=== PATIENT | male | born 1940 | race Caucasian/White ===

== ENCOUNTER 2017-06-17 12:26 | Outpatient (CLI) | payer MEDICARE, OTHER ==
--- NOTE | 2017-06-17 15:42 | CT ---
CT CHEST WITHOUT CONTRAST 06/17/17 HISTORY: Pleural effusion. COMPARISON: Chest two view from 2015. FINDINGS: Large right pleural effusion containing approximately 60% of the right hemithorax space. Mild compre ssive atelectasis in the right middle lobe and severe compressive atelectasis in the right lower lob e. Left lung is clear. Mild emphysematous changes, central lobular predominance. Moderate calcification of the aorta. There appears to be an occlusion device within the left atrium although the clinical correlation with history of prior procedure is recommended. Dense vascular seth cifications coronary arteries. Numerous right paratracheal and pretracheal lymph nodes throughout the mediastinum. In the upper abdomen, there appears to be ascites and a nodular appearance of the liver. There is di astasis of the sternum and manubrium with fracture of the sternal wires. No compression fracture of the thoracic spine. IMPRESSION: 1. Large right pleural effusion with compressive atelectasis filling approximately 60% of the r ight pleural space. 2. Cardiomegaly. 3. Likely reactive mediastinal lymph nodes. 4. Likely an occlusion device in the left atrium with dense vascular calcifications of the srinivasa nary arteries. Recommend correlation with prior history. 5. Diastasis of the sternum and manubrium in midline fashion from prior sternotomy and fracture of the sternal wires. 6. Incompletely evaluated ascites with hepatic cirrhosis. Patient should be considered to be pu t in an HCCC screening program with ultrasound. 7. Underlying mass in the right lower lobe cannot be totally excluded given the large effusion. Code T POS: OFF
== END 2017-06-17 12:27 | disposition home or self-care (01) ==
LOC: CT 12:26
PROVIDERS: ATTEND Family Medicine
DX: J90 Pleural effusion, not elsewhere classified (principal); I51.7 Cardiomegaly
CPT/HCPCS: 71250; 82728; 85025

== ENCOUNTER 2017-06-20 22:57 | Inpatient (IN) | payer MEDICARE, OTHER ==
[2017-06-20 23:28] LABS: #Eosinphils 0.5 thou/uL (0.0-0.7); #Lymphocytes 0.8 thou/uL (1.20-3.40); #Monocytes 0.5 thou/uL (0.11-0.59); #Neutrophils 4.8 thou/uL (1.40-6.50); %Basophils 0.6 % (0.0-1.0); %Lymphocytes 11.8 % (21.0-51.0); %Monocytes 7.7 % (0.0-10.0); Hematocrit 39.1 % (42.0-52.0); Mean Platelet Volume 9.1 fL (7.4-10.4); Red Blood Cell (RBC) Count 4.02 mill/uL (4.70-6.10); White Blood Cell (WBC) Count 6.6 thou/uL (4.8-10.8)
--- NOTE | 2017-06-20 23:41 | RAD ---
PORTABLE CHEST ONE VIEW 06/20/17 at 11:33 p.m. HISTORY: Dyspnea. FINDINGS: Comparison is made with the exam of 09/05/15. There are changes of median sternotomy. The heart size is enlarged. There is a moderate sized right pleural effusion. The left lung is clear. No florencia pulmonary edema is seen. IMPRESSION: Right sided pleural effusion. POS: [facility]
[2017-06-20 23:50] LABS: ALT (SGPT) 11 U/L (8-55); AST (SGOT) 26 U/L (5-34); Alkaline Phosphatase 144 U/L (40-150); Anion Gap 18 mmol/L (10-20); BUN (Urea Nitrogen) 81 mg/dL (8.4-25.7); Bilirubin, Total 1.2 mg/dL (0.2-1.2); CK (CPK) 83 U/L (30-200); Calc. Creatinine Clearance 0 mL/min (70-130); Calcium 9.7 mg/dL (7.8-10.44); Carbon Dioxide 26 mmol/L (23-31); Chloride 101 mmol/L (98-107); Estimated GFR-MDRD 16; Globulin 3.5 g/dL (2.4-3.5); Protein, Total 7.5 g/dL (5.8-8.1)
[2017-06-20 23:59] LABS: Troponin I 0.076 ng/mL (< 0.028)
[2017-06-21] MEDS ORDERED: methylPREDNISolone Sod Succ/PF 125 MG/2 ML VIAL ONE (03:46)
[2017-06-21] MEDS ORDERED: Bumetanide 1 MG/4 ML VIAL IVP SCH (04:00)
[2017-06-21 05:27] VITALS: BMI 28.7
[2017-06-21] MEDS ORDERED: Ondansetron ODT 4 MG TAB SL PRN (05:33)
[2017-06-21] MEDS ORDERED: Acetaminophen 325 MG TAB PO PRN (05:33)
[2017-06-21] MEDS ORDERED: Ondansetron HCl/PF 4 MG/2 ML Vial IVP PRN (05:33)
--- NOTE | 2017-06-21 06:07 | PDOC.EVN ---
Event Note - Event Note Event Note: [id number] 1. Acute on chronic sys CHF 2. MARIZA 3. CKD stage 4 4. H/O HTN Plan: see orders
[2017-06-21] MEDS ORDERED: Colchicine 0.6 MG TAB PO PRN (06:10)
[2017-06-21] MEDS ORDERED: Metolazone 5 MG TAB PO PRN (06:10)
[2017-06-21] MEDS: Arformoterol 15 MCG/2 ML NEB NEB SCH ×2 (07:28→18:48)
[2017-06-21] MEDS: Budesonide 0.25 MG/2 ML NEB NEB SCH ×2 (07:30→18:49)
[2017-06-21 08:23] LABS: Troponin I 0.071 ng/mL (< 0.028)
--- NOTE | 2017-06-21 08:24 | HP ---
DATE OF ADMISSION: 06/21/2017 CHIEF COMPLAINT: Lower abdominal wall swelling and bilateral lower extremity swelling. HISTORY OF PRESENT ILLNESS: The patient is 77 years old male with past medical history of CKD, stage 4; CHF; hypertension; COPD; diabetes mellitus, type 2; now came to the ER because of the bilateral lower extremity swelling and lower abdominal wall swelling. The patient was having dyspnea for the past few days, but dyspnea got worse today. Patient also complains of bilateral lower extremity swelling and abdominal wall swelling for the past several weeks, but got worse this evening. Denies any chest pain and denies any palpitations. Complains of some dry cough. Denies any fever, denies any chills, denies nausea , denies any vomiting, denies any diarrhea, denies any bloody stools, and denies black stools. The patient swelling improved in the ER after IV Bumex was given. The patient denies any dizziness. PAST MEDICAL HISTORY: As per HPI. PAST SURGICAL HISTORY: CABG, right finger amputation. FAMILY HISTORY: Positive for heart problems. SOCIAL HISTORY: Denies smoking, denies alcohol, denies any drugs. REVIEW OF SYSTEMS: Constitutional: Denies any fever and denies any chills. Eyes: Denies vision problems. Ears: Denies any hearing loss. Neck: Denies any neck pain. Cardiovascular System: Denies any chest pain and denies any palpitations. Respiratory System: Positive for dyspnea. Cranial Nerve System : Denies syncope. Musculoskeletal: Positive for bilateral lower extremity swelling. Gastrointestinal: Positive for lower abdominal wall swelling. Psychiatric: Denies depression and denies anxiety. Integument: Denies any rash. All other review of systems is reviewed and is negative. PHYSICAL EXAMINATION: VITAL SIGNS: At the time of H and P performed, blood pressure is 113/77, temperature 97.8, heart rate 88, respiratory rate 22. GENERAL APPEARANCE: The patient appears comfortable. HEENT: Pupils equal, round, and reactive. Anterior nares patent. Nose normal. Ears normal. Teeth intact. Tongue is moist. NECK: Supple. No JVD. INTEGUMENTARY: Diffuse ecchymosis present with multiple ecchymoses seen. CARDIOVASCULAR SYSTEM: S1, S2 present, regular. Positive for systolic murmur, no rubs and no gallops. CHEST: Positive for old-healed scar present. RESPIRATORY SYSTEM: Diminished breath sounds present. Positive for rhonchi. Positive for crackles. No accessory muscle use seen. Normal effort. GASTROINTESTINAL: Abdomen is distended, soft, nontender, no guarding, no organomegaly, no masses felt. MUSCULOSKELETAL: Bilateral lower extremities, 2+ pitting edema present. PSYCHIATRIC: Mood appropriate at this time. CRANIAL NERVES SYSTEM: Awake, follows commands, strength intact, sensory intact. LABORATORY DATA: At the time of H and P performed, white count 6.6, hemoglobin 12.3, platelet count is 120. BMP showed sodium 141, potassium 3.9, chloride 101 , CO2 of 26, BUN of 81, creatinine 3.65, baseline creatinine is around 2.6. ASSESSMENT AND PLAN: The patient is 77 years old male. 1. Acute on chronic systolic congestive heart failure. Plan to start patient on IV Bumex, plan to consult Cardiology to evaluate the patient, plan to monitor the patient closely with strict I's and O's. 2. Acute kidney injury with chronic kidney disease. This might be secondary to the underlying heart failure, but need to rule out other etiology also. Plan to consult Nephrology to evaluate the patient. We will monitor creatinine closely. 3. Acute chronic obstructive pulmonary disease exacerbation. Will start patient on breathing treatments and IV steroids. We will monitor respiratory status closely. 4. History of hypertension. Monitor blood pressure. Continue home blood pressure medications. 5. History of diabetes mellitus, type 2. Monitor blood sugars. We will do insulin sliding scale. The case was discussed in detail with the patient. Patient is full code. MTDD
--- NOTE | 2017-06-21 08:42 | CON ---
DATE OF CONSULTATION: 06/21/2017 SERVICE: Renal Medicine. HISTORY OF PRESENT ILLNESS: Mr. Ny is a 77-year-old white male with chronic renal failure, admitted for complaints of abdominal swelling with shortness of breath. Initial evaluation with a c hest x-ray showed he had moderate size right pleural effusion. In addition, a CAT scan of the abdom en was done, which showed some ascites and finding of cirrhosis. Initially, he had leg edema, but t his morning, his leg edema is much improved. We are now being consulted for his acute kidney injury on top of his chronic renal failure. Please note, this patient is regularly followed [facility] and baseline creatinine is about 2.7. Currently, most recent creatinine is about 3.6-3.4. REVIEW OF SYSTEMS: Denies any chest pain. Positive for mild shortness of breath. Positive for abd ominal fullness. No nausea, no vomiting, no diarrhea, no headache, no diplopia, no syncopal episode , no productive cough, no fever or chills. No hematochezia, no melena, no hematemesis, no gross hem aturia. Appetite fair. Energy level is decreased. No visual acuity changes. PAST MEDICAL HISTORY: Includes the following, 1. The patient has history of congestive heart failure. 2. Hypertension. 3. ? of underlying COPD, status post atrial fibrillation, status post gastrointestinal bleed. 4. History of coronary artery disease. PAST SURGICAL HISTORY: Includes the followin. The patient is status post cardiac catheterization, status post CABG. 2. He also has a right middle and ring finger amputation. SOCIAL HISTORY: Patient lives in [place], [place]. He lives alone. He has 6 children. He tells me he has a daughter who lives nearby to help him. Currently, no smoking or alcohol use, no IV anjel g abuse. ALLERGIES: LIPITOR and ZOCOR. TRAUMA: None. IMMUNIZATIONS: Up to date. HOSPITALIZATIONS: Please see past medical history. PHYSICAL EXAMINATION: GENERAL: Noted to be awake, alert, supine, comfortable, not in overt distress. SKIN: Adequate turgor. HEENT: Slightly pale conjunctivae, anicteric sclerae. NECK: No neck mass, no carotid bruits, no JVD. CHEST: No deformities. LUNGS: Decreased breath sounds in right, left clear. HEART: Normal sinus rhythm. Grade 3/6 systolic murmur. No gallops or rubs. ABDOMEN: Globular, soft, nontender, no masses. Positive for ascites. EXTREMITIES: No edema. NEUROLOGIC: Awake, oriented to 3 spheres. Moving all extremities. No tremors or asterixis. VITAL SIGNS: Blood pressure ranging from 89/54-113/77, heart rate 76, respiratory rate 16, O2 sat 9 0%, temperature 97.8. LABORATORY DATA AND IMAGING: Of 06/20/2017, white count 6.6, hemoglobin 12.3. Sodium is 141, potas sium 3.9, chloride 101, carbon dioxide 26, BUN 81, creatinine 3.65, glucose 106, calcium 9.7, AST 26 , ALT 11. BNP is 981.2. Chest x-ray of 06/20/2017 showed right pleural effusion. CT scan of the chest on 06/17/2017 showed large pleural effusion, cardiomegaly, reactive mediastinal lymph nodes, ? of right lower mass, ? of cirrhosis. ASSESSMENT AND PLAN: 1. Acute kidney injury on top of his chronic renal failure - patient has been diuresed for his sury estive heart failure. [facility]. He was on Bumex at home and cur rently on metolazone. My plan is to discontinue metolazone. Continue to hold off Bumex, salt poor albumin 25 grams IV q.6 hours will be done. He most likely has superimposed prerenal azotemia. 2. Chronic renal failure. Supportive care. Baseline creatinine is about 2.7. No indication for a ny dialytic intervention. 3. Moderate sized right pleural effusion - consider thoracentesis with this patient. 4. ? of cirrhosis - GI evaluation. May need GI evaluation for possible cirrhosis or ? of underlyin g liver mass. Continue supportive care.
[2017-06-21] MEDS ORDERED: Non-Formulary Item 1 EACH (Omeprazole [Omeprazole] 40 MG) PO SCH (09:00)
[2017-06-21] MEDS: Allopurinol 300 MG TAB PO SCH (09:57)
[2017-06-21] MEDS: Calcitriol 0.25 MCG CAP PO SCH (09:58)
[2017-06-21] MEDS: Carvedilol 3.125 MG TAB PO SCH ×2 (09:59→20:22)
[2017-06-21] MEDS: Albumin 25% 25 GM/100 ML BOT IVPB SCH ×3 (10:02→20:22)
--- NOTE | 2017-06-21 11:52 | ULT ---
RENAL SONOGRAM: HISTORY: Renal failure. FINDINGS: The right kidney is 9.1 cm in length and the left is 10.1 cm. Each shows diffuse cortical thinning. No focal mass or hydronephrosis are apparent. Urinary bladder is incompletely distended. A large amount of free fluid is apparent throughout the abdomen and pelvis. Echogenic stones are noted wit hin the gallbladder lumen. IMPRESSION: 1. Diffuse renal atrophy. No evidence of urinary tract obstruction. 2. Ascites. 2. Cholelithiasis. POS: [facility]
[2017-06-21] MEDS: Benzonatate 100 MG CAP PO PRN (12:25)
[2017-06-21 12:31] LABS: Troponin I 0.054 ng/mL (< 0.028)
--- NOTE | 2017-06-21 13:58 | EKG ---
Test Reason : Blood Pressure : / mmHG Vent. Rate : 104 BPM Atrial Rate : 047 BPM P-R Int : 000 ms QRS Dur : 144 ms QT Int : 364 ms P-R-T Axes : 000 091 253 degrees QTc Int : 478 ms Atrial fibrillation with rapid ventricular response with premature ventricular or aberrantly conduct ed complexes Rightward axis Non-specific intra-ventricular conduction block Cannot rule out Septal infarct , age undetermined T wave abnormality, consider inferior ischemia T wave abnormality, consider anterolateral ischemia Low voltage QRS Abnormal ECG Confirmed by SCOTT BENNETT, HUBER Rosenberg ([id number]), proposal editor ESTHER XIONG ([id number]) on 06/21/2017 1:57:54 PM Referred By: Confirmed By:HUBER CHAVEZ MD
--- NOTE | 2017-06-21 15:08 | PDOC.EVN ---
Event Note - Event Note Event Note: pt seen and examined. Renal consult appreciated. will request GI consult for cirrhosis . has ascites and Rt pleural effusion , likely hepatogenic in origin. will order paracentesis by IR. if pleural effusion does not resolve, will request thoracentesis.
--- NOTE | 2017-06-21 18:30 | CON ---
DATE OF CONSULTATION: 06/21/2017 GI INPATIENT CONSULTATION NOTE REQUESTING PHYSICIAN: Dr. Thornton. REASON FOR CONSULTATION: Cirrhosis. HISTORY OF PRESENT ILLNESS: Jeffy Ny is a 77-year-old gentleman, seen in the GI outpatient setting by my colleague, Dr. Andrew Schaeffer. He is admitted to the hospital this morning with acute on chronic CHF as well as acute on chronic kidney injury with complaints of increasing dyspnea, lower extremity edema, abdominal distention, progressive over the past few weeks. He has a history notabl e for CHF, coronary artery bypass graft, atrial fibrillation, COPD, and chronic kidney disease with baseline creatinine about 2.7. There is no prior history documented or known to the patient of hepa titis or liver disease. The patient takes diuretics on an outpatient basis. From a GI perspective, he was last seen by Dr. Schaeffer back in 2010, at which time he had an EGD notable only for some duoden al arteriovenous malformations, prior colonoscopy from 2008 showed diverticulosis and was otherwise normal. Upon admission, he has been seen by Nephrology. His Bumex is being held and he has been started on IV albumin. Cardiology consultation is pending. He does have elevated creatinine up to 3.65 with B UN 81. BNP is also elevated to 981. Note his liver function tests are normal, but a recent CT ches t demonstrated large right pleural effusion, ascites and nodular appearance to the liver. The patie nt denies any history of jaundice or encephalopathy. He does not drink alcohol or smoke. REVIEW OF SYSTEMS: Full review of systems including constitutional, head, eyes, ears, nose, throat, GI, , cardiovascular, respiratory, musculoskeletal, and neurologic systems is negative except as noted in the HPI. PAST MEDICAL HISTORY: Congestive heart failure, coronary artery disease status post CABG, atrial fi brillation, hypertension, chronic kidney disease stage IV, COPD, diabetes type 2, duodenal arteriove nous malformations, colonic diverticulosis. ALLERGIES: LIPITOR, CODEINE, LASIX, and ZOCOR. OUTPATIENT MEDICATIONS: Insulin Novolin 70/30, colchicine, Tessalon Perles, tramadol p.r.n., albute rol p.r.n., multivitamin, vitamin C, Zaroxolyn 2.5 mg daily p.r.n., Bumex 3 mg p.o. daily, Pulmicort nebulizer, Brovana 15 mcg inhaled b.i.d., Crestor, omeprazole 40 mg daily, Coreg, levothyroxine, Im dur, allopurinol. INPATIENT MEDICATIONS: Albumin 25 grams IV q.6 hours, allopurinol, Brovana, aspirin 81 mg daily, Te ssalon Perles, Pulmicort, calcitriol, Coreg, colchicine, Imdur, levothyroxine, Protonix 40 mg daily, Crestor. SOCIAL HISTORY: No smoking, alcohol, or drug use. FAMILY HISTORY: He had a brother with liver. PHYSICAL EXAMINATION: VITAL SIGNS: Temperature 98.7, pulse 94, blood pressure 109/67, 92% oxygen saturation on 2 liters n eda cannula. GENERAL: Elderly 77-year-old gentleman, appearing chronically ill, but nontoxic, lying in bed comfo rtably in no distress. MENTAL: He is alert and oriented, pleasant and conversational. Can give details about his history. SKIN: No jaundice, no rashes were palpable. EYES: No scleral icterus. Extraocular movements intact. ENT: Mucous membranes moist, no oral lesions. LYMPH: No submandibular or supraclavicular lymphadenopathy. THYROID: Nontender to palpation. HEART: Regular rate and rhythm. Systolic murmur. LUNGS: Decreased breath sounds on the right. No wheezing, no respiratory distress. ABDOMEN: Distended, dull to percussion throughout, nontender to palpation, no masses or organomegal y appreciated. EXTREMITIES: 1-2+ bilateral lower extremity edema. NEUROLOGICAL: Cranial nerves II-XII intact bilaterally. No focal deficits. No asterixis. VESSELS: Radial pulses 2+ bilaterally. LABORATORY STUDIES: WBC 6.6, hemoglobin 12.3, and platelets 120. Sodium 141, potassium 3.9, BUN 81 , creatinine 3.65, glucose 107, total bilirubin 1.2, alkaline phosphatase 144, AST 26, ALT 11, album in 4.0. BNP is elevated at 981, troponin 0.05, CK 83, CK-MB 4.4. IMAGING STUDIES: Chest x-ray showed moderate right pleural effusion and cardiomegaly. Renal ultras ound showed no evidence of obstruction. He had ascites as well as cholelithiasis. On 06/17/2017, C T chest showed a large right pleural effusion, nodular liver and ascites. ASSESSMENT AND PLAN: 1. Ascites, new onset. 2. Right pleural effusion, likely related to the ascites. 3. Congestive heart failure exacerbation. 4. Acute on chronic renal failure. 5. Liver nodularity suggestive of cirrhosis. His overall presentation seems most consistent with a congestive heart failure exacerbation on top of worsening renal function, rather than initial decom pensation of cirrhosis. I note the nodular appearance of the liver on his recent CT, but also notes normal albumin level, only mild thrombocytopenia, normal LFTs, no prior history of intrinsic liver disease. 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 I do agree with plan for paracentesis tomor row morning. Would remove 3-5 liters if possible and send fluid for cell count, differential, cultu res, total protein, albumin, and cytology. I agree with the IV albumin diuretic management per Neph rology. Follow up Cardiology recommendations as well. I will order some liver laboratory workup wi th his morning labs including checking INR, viral hepatitis serologies, autoimmune markers, AFP, etc . GI will follow along with you. Please call with questions or concerns.
[2017-06-21 18:37] LABS: Iron 35 ug/dL (65-175)
[2017-06-21] MEDS: Acetaminophen 325 MG TAB PO PRN (20:21)
[2017-06-21] MEDS ORDERED: traMADol HCl 50 MG TAB PO PRN (20:54)
[2017-06-21] MEDS ORDERED: Nitroglycerin 0.4 MG TAB (25 Tab Bottle) SL PRN (20:54)
[2017-06-21] MEDS: Multivit, Therapeutic 1 TAB PO SCH (23:44)
[2017-06-22] MEDS: Albumin 25% 25 GM/100 ML BOT IVPB SCH ×4 (02:44→21:49)
[2017-06-22 05:30] LABS: #Lymphocytes 0.5 thou/uL (1.20-3.40); #Monocytes 0.1 thou/uL (0.11-0.59); #Neutrophils 4.6 thou/uL (1.40-6.50); %Lymphocytes 9.7 % (21.0-51.0); %Monocytes 1.4 % (0.0-10.0); Hematocrit 33.3 % (42.0-52.0); Mean Platelet Volume 9.9 fL (7.4-10.4); Red Blood Cell (RBC) Count 3.42 mill/uL (4.70-6.10); White Blood Cell (WBC) Count 5.1 thou/uL (4.8-10.8)
[2017-06-22 05:35] LABS: Prothrombin Time 18.3 SEC (12.0-14.7)
[2017-06-22 05:36] LABS: PTT 28.7 SEC (22.9-36.1)
[2017-06-22] MEDS: Levothyroxine Sodium 50 MCG TAB PO SCH (05:38)
[2017-06-22 06:02] LABS: Anion Gap 17 mmol/L (10-20); BUN (Urea Nitrogen) 90 mg/dL (8.4-25.7); Calc. Creatinine Clearance 23 mL/min (70-130); Calcium 9.2 mg/dL (7.8-10.44); Carbon Dioxide 26 mmol/L (23-31); Chloride 102 mmol/L (98-107); Estimated GFR-MDRD 17
[2017-06-22] MEDS: Budesonide 0.25 MG/2 ML NEB NEB SCH ×2 (07:50→19:42)
[2017-06-22] MEDS: Arformoterol 15 MCG/2 ML NEB NEB SCH ×2 (07:52→19:40)
[2017-06-22] MEDS ORDERED: FLU VACC TS2017-18 (>65YR) 0.5 ML SYRINGE IM ONE (09:00)
--- NOTE | 2017-06-22 09:02 | PRG ---
DATE OF SERVICE: 06/22/2017 SUBJECTIVE: Mr. Ny is feeling a bit better this morning. He is sitting up on the side of t he bed, tolerating his diet well. He is waiting on a paracentesis later today. He has no new compl aints. PHYSICAL EXAMINATION: VITAL SIGNS: Temperature 97.5, pulse 73, blood pressure 89/52, 90% oxygen saturation on 2 liters na lucretia cannula. GENERAL: Sitting up in bed, in no acute distress. HEART: Regular rate and rhythm. LUNGS: Diminished breath sounds on the right, clear breath sounds on the left. ABDOMEN: Distended with ascites, soft, nontender to palpation. EXTREMITIES: A 1-2+ bilateral lower extremity edema. LABORATORY STUDIES: Sodium 141, potassium 3.6, BUN 90, creatinine 3.48, glucose 179, ferritin 174.3 , iron 35, TIBC 239, so iron studies are mixed. INR is 1.5. WBC 5.1, hemoglobin 10.8, platelets 97 . Total IgG is normal at 1039. Viral hepatitis serologies are negative for hepatitis A, B and C. ASSESSMENT AND PLAN: 1. Ascites, new onset, proceed with planned diagnostic/therapeutic paracentesis today. 2. Right pleural effusion. 3. Congestive heart failure. 4. Acute on chronic renal failure. 5. Abnormal CT of the liver suggesting cirrhosis, awaiting paracentesis and results of further live r lab workup. Continue with IV albumin, diuretic management per Nephrology. Consider inpatient car diology evaluation as appropriate. Low sodium diet.
[2017-06-22] MEDS: Allopurinol 300 MG TAB PO SCH (09:05)
[2017-06-22] MEDS: Ascorbic Acid 500 mg Chewable Tablet PO SCH (09:05)
[2017-06-22] MEDS: Carvedilol 3.125 MG TAB PO SCH ×2 (09:06→21:48)
[2017-06-22] MEDS: Bumetanide 1 MG TAB PO SCH (09:06)
[2017-06-22] MEDS: Calcitriol 0.25 MCG CAP PO SCH (09:06)
[2017-06-22] MEDS: Multivit, Therapeutic 1 TAB PO SCH ×2 (09:07→21:48)
--- NOTE | 2017-06-22 10:32 | PDOC.PN ---
- Subjective Encounter Start Date: 06/22/17 Encounter Start Time: 10:25 Subjective: pt feels better. swelling improved -: consultnts input appreciated - Objective Vital Signs & Weight: Vital Signs (12 hours) Temp Pulse Resp BP BP Pulse Ox 06/22/17 08:00 97.4 F L 88 18 111/62 94 L 06/22/17 07:54 90 L 06/22/17 07:50 73 18 90 L 06/22/17 04:00 97.5 F L 82 16 89/52 L 91 L 06/22/17 00:26 91 L Weight Weight 207 lb 9.6 oz I&O: 06/21/17 06/22/17 06/23/17 06:59 06:59 06:59 Intake Total 1220 Output Total 1550 Balance -330 Result Diagrams: 06/22/17 04:18 06/22/17 04:18 Additional Labs: Accuchecks 06/22/17 06/21/17 06/21/17 06:02 20:49 16:25 POC Glucose 179 H 233 H 264 H Phys Exam - Physical Examination HEENT: PERRLA, moist MMs Neck: no nodes Respiratory: no wheezing, no rales, no rhonchi Cardiovascular: RRR, no significant murmur, no rub Gastrointestinal: soft, non-tender, no distention abdominal distension improved Musculoskeletal: pulses present pedal edema improved Neurological: non-focal, normal sensation, moves all 4 limbs Psychiatric: A&O x 3 Skin: no rash Dx/Plan (1) Renal failure (ARF), acute on chronic Code(s): N17.9 - ACUTE KIDNEY FAILURE, UNSPECIFIED; N18.9 - CHRONIC KIDNEY DISEASE, UNSPECIFIED Status: Acute (2) CHF (congestive heart failure) Code(s): I50.9 - HEART FAILURE, UNSPECIFIED Status: Acute (3) Cirrhosis Code(s): K74.60 - UNSPECIFIED CIRRHOSIS OF LIVER Status: Acute (4) CAD (coronary artery disease) Code(s): I25.10 - ATHSCL HEART DISEASE OF [place] CORONARY ARTERY W/O ANG PCTRS Status: Acute (5) Hx of CABG Status: Acute - Plan pt scheduled for paracentesis. will cont IV albumin -: monitor renal function. diuretics on hold * .
--- NOTE | 2017-06-22 12:03 | PRG ---
DATE OF SERVICE: 06/22/2017 RENAL MEDICINE SUBJECTIVE: Mr. Ny is a 77-year-old white male with known history of chronic renal failure and seen for an acute kidney injury. Please note that recently he is being diuresed. All of his di uretics are currently on hold. I decided to give him salt poor albumin since I felt that there is a prerenal component. He is also being evaluated by the GI due to ascites as well as nodular cirrhos is. Please note chest x-ray showed right pleural effusion, but the left lungs were noted to be su r. Patient is actually feeling better this morning. He denies any worsening chest pain or shortness of breath. PHYSICAL EXAMINATION: VITAL SIGNS: Blood pressure is 102/52, heart rate 75, respiratory rate 18, pulse ox 94%, temperatur e 97.4. GENERAL: Awake, sitting comfortable, not in distress. SKIN: Adequate turgor. HEENT: He has pinkish conjunctivae, anicteric sclerae. NECK: No neck mass, no carotid bruits, no JVD. CHEST: No deformities. LUNGS: Decreased breath sounds in right. Left has clear breath sounds. HEART: Normal sinus rhythm. No murmur, no gallops, no rubs. ABDOMEN: Globular, soft, nontender, no masses. No? of ascites. EXTREMITIES: No edema. MEDICATIONS: Medications of 06/22/2017 was reviewed. LABORATORY DATA: Laboratories of 06/21/2017, hepatitis B and C negative. On 06/22/2017, sodium 141, potassium 3.6, chloride 102, carbon dioxide 26, BUN 90, creatinine 3.48, GFR 17 mL per minute. Calcium 9.2, iron 325, TIBC 239. Troponin I 0.054. BNP is 981. ASSESSMENT AND PLAN: 1. Volume overload - patient has ascites and pleural effusion. Bumex has been restarted. At the s em time, we are giving him salt poor albumin to maintain intravascular volume. 2. Acute kidney injury, hemodynamically mediated renal dysfunction. Off his metolazone. Bumex res tarted. Continue salt poor albumin 25 grams IV q.6. Should the renal function further worsen, we m ay need to adjust the Bumex dosing. Please note the combination of salt poor albumin and Bumex may help in enhancing urine output. 3. Shortness of breath. Clinically, much improved. 4. Nodular cirrhosis - GI following and evaluating.
[2017-06-22 12:54] LABS: BF Reference Range Comment Note:
--- NOTE | 2017-06-22 12:58 | ULT ---
SONOGRAPHIC GUIDED PARACENTESIS: HISTORY: Ascites. Dyspnea. FINDINGS: After explaining the procedure and answering all questions, the right lower quadrant was prepped and draped in the usual sterile fashion. Sterile technique, buffered local anesthesia, sonographic kendrick dance, and an anterior right lower quadrant approach were used to carefully advance a 19-gauge Yueh needle and catheter into the free fluid. The catheter was left to drain a total volume of 4.0 L ser osanguineous liquid. Postprocedure imaging shows a small amount of residual liquid. The patient to lerated the procedure well and was returned in improved condition. IMPRESSION: Technically successful sonographic-guided paracentesis. Pathology is pending. POS: [facility]
[2017-06-22 13:26] LABS: BF Color Red
[2017-06-22 13:27] LABS: RBC Count-Automated 38000 /cumm
[2017-06-22 13:45] LABS: BF WBC/Nonhematics Ct. - Manua 210 /cumm
[2017-06-22 14:18] LABS: Number Cells Counted-Fluids 100
[2017-06-23] MEDS: Albumin 25% 25 GM/100 ML BOT IVPB SCH ×4 (01:53→23:54)
[2017-06-23] MEDS: Levothyroxine Sodium 50 MCG TAB PO SCH (05:09)
[2017-06-23] MEDS: Arformoterol 15 MCG/2 ML NEB NEB SCH ×2 (07:04→18:18)
[2017-06-23] MEDS: Budesonide 0.25 MG/2 ML NEB NEB SCH ×2 (07:06→18:21)
[2017-06-23 09:19] LABS: Anion Gap 17 mmol/L (10-20); BUN (Urea Nitrogen) 96 mg/dL (8.4-25.7); Calc. Creatinine Clearance 23 mL/min (70-130); Calcium 9.2 mg/dL (7.8-10.44); Carbon Dioxide 29 mmol/L (23-31); Chloride 99 mmol/L (98-107); Estimated GFR-MDRD 18
--- NOTE | 2017-06-23 09:32 | PRG ---
DATE OF SERVICE: 06/23/2017 SUBJECTIVE: Mr. Ny is a 77-year-old white male seen for his acute kidney injury on top of h is chronic renal failure. He had a presumptive diagnosis of hemodynamically mediated renal dysfunct ion on top of his chronic renal failure. He also had a diagnostic/therapeutic paracentesis done yes terday. 1-2 liters said to have been removed. This morning he is asymptomatic. He denies any ches t pain, shortness of breath, nausea or vomiting. PHYSICAL EXAMINATION: VITAL SIGNS: Blood pressure is currently noted at 102/57, heart rate 75, respiratory rate 18, pulse ox 94%. GENERAL: Awake, alert, supine, comfortable, not in distress. SKIN: Adequate turgor. HEENT: He has pinkish conjunctivae, anicteric sclerae. NECK: No neck mass, no carotid bruits, no JVD. CHEST: No deformities. LUNGS: Clear breath sounds left, right with decreased breath sounds. HEART: Normal sinus rhythm. No murmur, no gallops, no rubs. ABDOMEN: Globular, soft, nontender. EXTREMITIES: No edema, no deformities. MEDICATIONS: 06/23/2017 - Reviewed. LABORATORY: 06/23/2017 - Chemistries are currently pending. Blood sugar is 143. ASSESSMENT AND PLAN: 1. Acute kidney injury on top of chronic renal failure, stabilizing renal function. Awaiting repea t base met, continue salt poor albumin. Please note the patient currently on Bumex. Should the uzair al function further worsen, we may need to hold off the Bumex temporarily. Please note his other di uretics, metolazone is currently on hold. Continue current management. 2. Ascites, status post paracentesis. 3. Shortness of breath - clinically improved. He still has significant right pleural effusion. Be ing diuresed. Recheck basic met in a.m.
[2017-06-23] MEDS: Bumetanide 1 MG TAB PO SCH (09:48)
[2017-06-23] MEDS: Allopurinol 300 MG TAB PO SCH (09:48)
[2017-06-23] MEDS: Ascorbic Acid 500 mg Chewable Tablet PO SCH (09:49)
[2017-06-23] MEDS: Carvedilol 3.125 MG TAB PO SCH ×2 (09:49→20:32)
[2017-06-23] MEDS: Calcitriol 0.25 MCG CAP PO SCH (09:49)
[2017-06-23] MEDS: Multivit, Therapeutic 1 TAB PO SCH ×2 (09:49→20:26)
--- NOTE | 2017-06-23 10:56 | PDOC.PN ---
- Subjective Encounter Start Date: 06/23/17 Encounter Start Time: 10:54 Patient seen at bedside. States his respiratory status has improved. No C/P - Objective Vital Signs & Weight: Vital Signs (12 hours) Temp Pulse Resp BP Pulse Ox 06/23/17 07:04 75 18 94 L 06/23/17 03:50 97.5 F L 83 16 102/57 L 93 L 06/23/17 00:35 93 L Weight Weight 197 lb 4.8 oz I&O: 06/22/17 06/23/17 06/24/17 06:59 06:59 06:59 Intake Total 1220 1360 Output Total 1550 1125 Balance -330 235 Result Diagrams: 06/22/17 04:18 06/23/17 08:47 Additional Labs: Accuchecks 06/23/17 06/22/17 06/22/17 06:06 20:43 16:48 POC Glucose 143 H 196 H 188 H 06/22/17 11:15 POC Glucose 194 H Phys Exam - Physical Examination Constitutional: NAD HEENT: moist MMs Neck: no JVD Respiratory: no wheezing, clear to auscultation bilateral Cardiovascular: RRR Gastrointestinal: soft distended, ascites Musculoskeletal: pulses present, edema present 2+ edema present Neurological: moves all 4 limbs Psychiatric: normal affect, A&O x 3 Dx/Plan (1) CHF (congestive heart failure) Code(s): I50.9 - HEART FAILURE, UNSPECIFIED Status: Acute (2) Cirrhosis Code(s): K74.60 - UNSPECIFIED CIRRHOSIS OF LIVER Status: Acute (3) Hx of CABG Status: Acute (4) Renal failure (ARF), acute on chronic Code(s): N17.9 - ACUTE KIDNEY FAILURE, UNSPECIFIED; N18.9 - CHRONIC KIDNEY DISEASE, UNSPECIFIED Status: Acute - Plan cont current plan of care, PT/OT, DVT proph w/SCDs * Continue with Salt Poor Albumin x 12 doses total. * Hold Bumex. Monitor Bun/Cr * Awaiting pathology from paracentesis
--- NOTE | 2017-06-23 15:38 | PRG ---
DATE OF SERVICE: 06/23/2017 SUBJECTIVE: The patient is feeling better today. He is eating well. OBJECTIVE: VITAL SIGNS: Temperature 97.7, pulse 82, respirations 18, and blood pressure 106/66. CHEST: Clear. ABDOMEN: Protuberant. He has umbilical hernia. His liver is 7 fingerbreadths below the right cost al margin and ballotable. EXTREMITIES: Show 1+ bilateral edema. LABORATORY DATA: Chemistry shows a BUN 96, creatinine 3.39, glucose 169. Fluid studies from yester day's paracentesis showed 38,000 rbc's, 210 wbc's with 10% neutrophils. IgG total is 1039. Hepatit is A, B, and C serology are negative. Ceruloplasmin is 37.8. Alpha-fetoprotein is 5.0. Admission albumin is 4.0. ASSESSMENT: 1. 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 2. Liver nodularity on CT scan. 3. Congestive heart failure. 4. Large right pleural effusion. RECOMMENDATIONS: 1. Await fluid studies. 2. Continue diuretics. 3. We will follow with you.
[2017-06-23] MEDS: Benzonatate 100 MG CAP PO PRN (20:26)
[2017-06-24] MEDS: Albumin 25% 25 GM/100 ML BOT IVPB SCH (05:22)
[2017-06-24] MEDS: Levothyroxine Sodium 50 MCG TAB PO SCH (05:22)
[2017-06-24 06:18] LABS: Anion Gap 12 mmol/L (10-20); BUN (Urea Nitrogen) 101 mg/dL (8.4-25.7); Calc. Creatinine Clearance 23 mL/min (70-130); Carbon Dioxide 31 mmol/L (23-31); Chloride 101 mmol/L (98-107); Estimated GFR-MDRD 18
[2017-06-24] MEDS: Budesonide 0.25 MG/2 ML NEB NEB SCH ×2 (07:34→18:29)
[2017-06-24] MEDS: Arformoterol 15 MCG/2 ML NEB NEB SCH ×2 (07:37→18:26)
--- NOTE | 2017-06-24 09:33 | PRG ---
DATE OF SERVICE: 06/24/2017 RENAL MEDICINE SUBJECTIVE: Mr. Ny is a 77-year-old white male who was seen for his acute kidney injury on top of his chronic renal failure. He also was noted to have ascites and underwent said paracentesis . He is being followed up by GI at the present time. He is currently on a diuretic regimen. No co mplaints today, no chest pain or no shortness of breath. PHYSICAL EXAMINATION: VITAL SIGNS: Blood pressure is 91/60, heart rate 97, respiratory rate 18, temperature 97.5, pulse o x 99%. GENERAL: Awake, sitting comfortable, not in overt distress. SKIN: Adequate turgor. HEENT: Pinkish conjunctivae. Anicteric sclerae. NECK: No neck mass, no carotid bruits, no JVD. CHEST: No deformities. LUNGS: Clear. Decreased breath sounds, clear breath sounds. HEART: Normal sinus rhythm. No murmur, no gallops, no rubs. ABDOMEN: Globular, soft, nontender, no masses. EXTREMITIES: No edema. MEDICATIONS: Medications of 06/24/2017, was reviewed. LABORATORY DATA: Laboratories of 06/22/2017; white count 5.1, hemoglobin 10.3, sodium 134, potassiu m 3.4, chloride 101, carbon dioxide 31, BUN 101, creatinine 3.36, glucose 113, and calcium 9.0. ASSESSMENT AND PLAN: 1. Acute kidney injury/chronic renal failure, superimposed prerenal azotemia, stable renal function BUN of 101 may reflect current diuretic regimen. We will continue current management for the moment. Should the BUN further worsen, we may need to consider decreasing the Bumex. Currently, kayy alvarado is on 3 mg per day of Bumex. 2. Cirrhosis/ascites. GI following. Awaiting results of the cytology of the peritoneal dialysis f luid. 3. Shortness of breath, clinically improved. 4. Underlying chronic obstructive pulmonary disease. Chest x-ray shows right pleural effusion, but left lung is noted to be clear. Please note I discontinued metolazone on admission. 5. No indication for any dialytic intervention.
--- NOTE | 2017-06-24 09:56 | PDOC.PN ---
- Subjective Encounter Start Date: 06/24/17 Encounter Start Time: 08:00 -: old records requested/rev c/o abdominal distention, has edema - Objective MAR Reviewed: Yes Vital Signs & Weight: Vital Signs (12 hours) Temp Pulse Resp BP Pulse Ox 06/24/17 07:34 85 16 96 06/24/17 07:25 97.5 F L 97 18 91/60 99 06/24/17 04:05 97.6 F 93 16 109/72 97 06/23/17 23:50 97.9 F 101 H 16 95/68 95 Weight Weight 197 lb 4.8 oz I&O: 06/23/17 06/24/17 06/25/17 06:59 06:59 06:59 Intake Total 1360 1260 Output Total 1125 975 Balance 235 285 Result Diagrams: 06/22/17 04:18 06/24/17 05:24 Additional Labs: Accuchecks 06/24/17 06/23/17 06/23/17 06:24 21:29 17:29 POC Glucose 110 144 H 142 H 06/23/17 11:58 POC Glucose 120 H EKG Reviewed by me: Yes Phys Exam - Physical Examination Constitutional: NAD HEENT: PERRLA, moist MMs, sclera anicteric Neck: no JVD, supple Respiratory: no wheezing, no rales, no rhonchi reduced air entry Cardiovascular: RRR, no rub SM+ Gastrointestinal: soft, non-tender, positive bowel sounds ascites+ Musculoskeletal: pulses present, edema present Neurological: non-focal, normal sensation, moves all 4 limbs Lymphatic: no nodes Psychiatric: normal affect, A&O x 3 Skin: no rash, normal turgor Dx/Plan (1) Acute worsening of stage 4 chronic kidney disease Code(s): N28.9 - DISORDER OF KIDNEY AND URETER, UNSPECIFIED; N18.4 - CHRONIC KIDNEY DISEASE, STAGE 4 (SEVERE) Status: Acute (2) Anasarca Code(s): R60.1 - GENERALIZED EDEMA Status: Acute (3) Ascites Code(s): R18.8 - OTHER ASCITES Status: Acute (4) CHF (congestive heart failure) Code(s): I50.9 - HEART FAILURE, UNSPECIFIED Status: Acute (5) Cirrhosis, cardiac Code(s): K76.1 - CHRONIC PASSIVE CONGESTION OF LIVER Status: Acute (6) Pleural effusion Code(s): J90 - PLEURAL EFFUSION, NOT ELSEWHERE CLASSIFIED Status: Acute (7) Anemia, normocytic normochromic Code(s): D64.9 - ANEMIA, UNSPECIFIED Status: Chronic (8) CAD (coronary artery disease) Code(s): I25.10 - ATHSCL HEART DISEASE OF [place] CORONARY ARTERY W/O ANG PCTRS Status: Chronic (9) COPD (chronic obstructive pulmonary disease) Status: Chronic (10) Diabetes type 2, controlled Code(s): E11.9 - TYPE 2 DIABETES MELLITUS WITHOUT COMPLICATIONS Status: Chronic (11) Dyslipidemia Code(s): E78.5 - HYPERLIPIDEMIA, UNSPECIFIED Status: Chronic (12) GERD (gastroesophageal reflux disease) Code(s): K21.9 - GASTRO-ESOPHAGEAL REFLUX DISEASE WITHOUT ESOPHAGITIS Status: Chronic (13) Hx of CABG Status: Chronic (14) Hypertension Code(s): I10 - ESSENTIAL (PRIMARY) HYPERTENSION Status: Chronic (15) Hypothyroidism Code(s): E03.9 - HYPOTHYROIDISM, UNSPECIFIED Status: Chronic (16) Thrombocytopenia Code(s): D69.6 - THROMBOCYTOPENIA, UNSPECIFIED Status: Chronic - Plan cont current plan of care * medication reviewed as below * symptomatic treatment * nephrology following, GI following * ascites fluid is negative for SBP * likely due to underlying heart and kidney failure * not ready for discharge * he may need HD to make him euvolemic, otherwise at risk for readmission for same problem * he has no renal response with diuretic therapy * will get Echo today * prognosis is poor. Review of Systems - Review of Systems ENT: negative: Ear Pain, Ear Discharge, Nose Pain, Nose Discharge, Nose Congestion, Mouth Pain, Mouth Swelling, Throat Pain, Throat Swelling, Other Respiratory: Shortness of Breath, SOB with Excertion. negative: Cough, Dry, Hemoptysis, Pleuritic Pain, Sputum, Wheezing Cardiovascular: Edema. negative: Chest Pain, Palpitations, Orthopnea, Paroxysmal Noc. Dyspnea, Light Headedness, Other Gastrointestinal: negative: Nausea, Vomiting, Abdominal Pain, Diarrhea, Constipation, Melena, Hematochezia, Other Genitourinary: negative: Dysuria, Frequency, Incontinence, Hematuria, Retention , Other Musculoskeletal: negative: Neck Pain, Shoulder Pain, Arm Pain, Back Pain, Hand Pain, Leg Pain, Foot Pain, Other - Medications/Allergies Allergies/Adverse Reactions: Allergies Allergy/AdvReac Type Severity Reaction Status Date / Time atorvastatin calcium Allergy Verified 07/24/16 17:22 [From Lipitor] codeine Allergy Verified 07/24/16 17:22 furosemide Allergy Verified 07/24/16 17:22 simvastatin [From Zocor] Allergy Verified 07/24/16 17:22 Medications: Current Medications Acetaminophen (Tylenol) 650 mg PO Q4H PRN PRN Reason: Headache/Fever or Pain Last Admin: 06/21/17 20:21 Dose: 650 mg Albuterol Sulfate (Albuterol Sulfate) 1.25 mg NEB Q8HR PRN PRN Reason: SOB &/or Wheezing Allopurinol (Zyloprim) 150 mg PO DAILY [facility] Last Admin: 06/23/17 09:48 Dose: 150 mg Arformoterol Tartrate (Brovana) 15 mcg NEB BID-RT [facility] Last Admin: 06/24/17 07:37 Dose: 15 mcg Ascorbic Acid (Vitamin C) 500 mg PO DAILY [facility] Last Admin: 06/23/17 09:49 Dose: 500 mg Aspirin (Aspirin Chewable) 81 mg PO DAILY [facility] Last Admin: 06/23/17 09:50 Dose: Not Given Benzonatate (Tessalon) 100 mg PO TIDPRN PRN PRN Reason: Cough Last Admin: 06/23/17 20:26 Dose: 100 mg Budesonide (Pulmicort Neb Solution) 0.25 mg NEB BID-RT [facility] Last Admin: 06/24/17 07:34 Dose: 0.25 mg Bumetanide (Bumex) 3 mg PO DAILY [facility] Last Admin: 06/23/17 09:48 Dose: 3 mg Calcitriol (Rocaltrol) 0.25 mcg PO DAILY [facility] Last Admin: 06/23/17 09:49 Dose: 0.25 mcg Carvedilol (Coreg) 3.125 mg PO BID EZEQUIEL Last Admin: 06/23/17 20:32 Dose: 3.125 mg Colchicine (Colcrys) 0.6 mg PO DAILYPRN PRN PRN Reason: pain Isosorbide Mononitrate (Imdur Er) 30 mg PO DAILY [facility] Last Admin: 06/23/17 09:48 Dose: 30 mg Levothyroxine Sodium (Synthroid) 50 mcg PO 0600 EZEQUIEL Last Admin: 06/24/17 05:22 Dose: 50 mcg Multivitamins (Theragran) 1 tab PO BID [facility] Last Admin: 06/23/17 20:26 Dose: 1 tab Nitroglycerin (Nitrostat) 0.4 mg SL DAILY PRN PRN Reason: Chest Pain Pantoprazole Sodium (Protonix) 40 mg PO DAILY [facility] Last Admin: 06/23/17 09:49 Dose: 40 mg Rosuvastatin Calcium (Crestor) 10 mg PO HS [facility] Last Admin: 06/23/17 20:26 Dose: 10 mg Sodium Chloride (Flush - Normal Saline) 10 ml IVF Q12HR [facility] Last Admin: 06/23/17 20:26 Dose: 10 ml Sodium Chloride (Flush - Normal Saline) 10 ml IVF PRN PRN PRN Reason: Saline Flush Spironolactone (Aldactone) 100 mg PO QAM-WM [facility] Tramadol HCl (Ultram) 50 mg PO DAILYPRN PRN PRN Reason: Pain
[2017-06-24] MEDS: Carvedilol 3.125 MG TAB PO SCH ×2 (10:01→20:32)
[2017-06-24] MEDS: Ascorbic Acid 500 mg Chewable Tablet PO SCH (10:01)
[2017-06-24] MEDS: Calcitriol 0.25 MCG CAP PO SCH (10:01)
[2017-06-24] MEDS: Spironolactone 100 MG TAB PO SCH (10:02)
[2017-06-24] MEDS: Bumetanide 1 MG TAB PO SCH (10:02)
[2017-06-24] MEDS: Allopurinol 300 MG TAB PO SCH (10:03)
[2017-06-24] MEDS: Multivit, Therapeutic 1 TAB PO SCH ×2 (10:03→20:32)
--- NOTE | 2017-06-24 11:58 | PRG ---
DATE OF SERVICE: 06/24/2017 SUBJECTIVE: The patient reports he was feeling good until about an hour ago when he felt he was hav ing more shortness of breath. He also feels his abdomen is harder today. He is eating well. He house s eaten 100% of his tray. He has had 1 bowel movement today. OBJECTIVE: VITAL SIGNS: Temperature 97.5, pulse 85, respiratory rate 16, blood pressure 91/60. CHEST: Reveals bilateral rhonchi and decreased breath sounds on the right. ABDOMEN: Distended with positive fluid wave, nontender. EXTREMITIES: Showed 2+ bilateral edema. LABORATORY DATA: The patient had a peritoneal fluid with 210 WBCs, 10% neutrophils. No chemistries were ordered on the peritoneal fluid. Ceruloplasmin was 37.8, alpha fetoprotein 5.0, iron and TIBC are both low, ferritin is normal. Hepatitis panel is negative and nuclear antibody is negative, IG G level was normal. ASSESSMENT: 1. 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 2. Ascites. 3. Congestive heart failure. 4. Large right pleural effusion. RECOMMENDATIONS: 1. We will order chemistries on fluid. 2. Added Aldactone yesterday, it may take 2-3 days before it reaches full efficacy. 3. We will follow with you.
[2017-06-24 13:04] LABS: Fluid, Protein 4.1 g/dL (Not Available)
[2017-06-24] MEDS: Benzonatate 100 MG CAP PO PRN ×2 (14:02→20:32)
[2017-06-24] MEDS: Albuterol Sulfate 1.25 MG/3 ML NEB NEB PRN (14:09)
[2017-06-24] MEDS: Acetaminophen 325 MG TAB PO PRN (20:32)
[2017-06-25] MEDS: Albuterol Sulfate 1.25 MG/3 ML NEB NEB PRN ×2 (00:57→13:36)
[2017-06-25 05:05] LABS: #Eosinphils 0.2 thou/uL (0.0-0.7); #Lymphocytes 0.7 thou/uL (1.20-3.40); #Monocytes 0.7 thou/uL (0.11-0.59); #Neutrophils 6.3 thou/uL (1.40-6.50); %Eosinophils 2.8 % (0.0-10.0); %Lymphocytes 8.6 % (21.0-51.0); %Monocytes 9.3 % (0.0-10.0); Anion Gap 14 mmol/L (10-20); BUN (Urea Nitrogen) 111 mg/dL (8.4-25.7); Calc. Creatinine Clearance 22 mL/min (70-130); Calcium 9.1 mg/dL (7.8-10.44); Carbon Dioxide 30 mmol/L (23-31); Chloride 100 mmol/L (98-107); Estimated GFR-MDRD 17; Hematocrit 31.5 % (42.0-52.0); Mean Platelet Volume 9.6 fL (7.4-10.4); Red Blood Cell (RBC) Count 3.23 mill/uL (4.70-6.10)
[2017-06-25 05:09] LABS: ALT (SGPT) 10 U/L (8-55); AST (SGOT) 18 U/L (5-34); Alkaline Phosphatase 77 U/L (40-150); Bilirubin, Direct 0.6 mg/dL (0.1-0.3); Bilirubin, Total 1.1 mg/dL (0.2-1.2); Phosphorus 4.1 mg/dL (2.3-4.7); Protein, Total 6.3 g/dL (5.8-8.1)
[2017-06-25] MEDS: Levothyroxine Sodium 50 MCG TAB PO SCH (06:06)
[2017-06-25] MEDS: Budesonide 0.25 MG/2 ML NEB NEB SCH ×2 (06:36→18:38)
[2017-06-25] MEDS: Arformoterol 15 MCG/2 ML NEB NEB SCH ×2 (06:38→18:38)
[2017-06-25] MEDS: Bumetanide 1 MG TAB PO SCH (08:01)
[2017-06-25] MEDS: Carvedilol 3.125 MG TAB PO SCH ×2 (08:01→20:46)
[2017-06-25] MEDS: Allopurinol 300 MG TAB PO SCH (08:02)
[2017-06-25] MEDS: Calcitriol 0.25 MCG CAP PO SCH (08:02)
[2017-06-25] MEDS: Spironolactone 100 MG TAB PO SCH (08:02)
[2017-06-25] MEDS: Ascorbic Acid 500 mg Chewable Tablet PO SCH (08:02)
[2017-06-25] MEDS: Multivit, Therapeutic 1 TAB PO SCH ×2 (08:02→20:46)
[2017-06-25] MEDS ORDERED: Bisacodyl 10 MG SUPP PR PRN (08:19)
[2017-06-25] MEDS ORDERED: Loperamide HCl 2 MG CAP PO PRN (08:19)
[2017-06-25] MEDS ORDERED: Sodium Chloride 0.65% Nasal 44 ML BOT EA NARE PRN (08:19)
[2017-06-25] MEDS ORDERED: Milk Of Magnesia 30 ML UDCUP PO PRN (08:19)
[2017-06-25] MEDS ORDERED: Mag-Al 1200 mg/1200 mg/30 ML UDCUP PO PRN (08:19)
[2017-06-25] MEDS ORDERED: Ondansetron ODT 4 MG TAB PO PRN (08:19)
[2017-06-25] MEDS ORDERED: Artificial Tears 18 DROP/0.9 ML EA EYE PRN (08:19)
[2017-06-25] MEDS ORDERED: Loratadine 10 MG TAB PO PRN (08:19)
[2017-06-25] MEDS ORDERED: Diabetic Tussin 200 MG/10 ML UDCUP PO PRN (08:19)
[2017-06-25] MEDS ORDERED: Ondansetron HCl/PF 4 MG/2 ML Vial IVP PRN (08:19)
[2017-06-25] MEDS ORDERED: Eucerin (Mineral Oil/Petrolatum,White) 30 gm Jar TOP PRN (08:19)
[2017-06-25] MEDS ORDERED: Chloraseptic Spray 180 ml Bottle PO PRN (08:19)
--- NOTE | 2017-06-25 09:09 | PRG ---
DATE OF SERVICE: 06/25/2017 SUBJECTIVE: Mr. Ny is a 77-year-old white male followed up by the [facility]al Service for his acute kidney injury on top of his chronic renal failure. He was initially admitted for some shortness of breath. He was also found to have ascites and ? of cirrhosis. He has undergone paracentesis. This morning he denies any worsening shortness of breath or chest pain. PHYSICAL EXAMINATION: VITAL SIGNS: Blood pressure is 108/72, heart rate 88, respiratory rate 12, temperature 97.9, pulse ox 93%. GENERAL: Awake, sitting comfortable, not in distress. SKIN: Adequate turgor. HEENT: Pinkish conjunctivae, anicteric sclerae. NECK: No neck mass, no carotid bruits, no JVD. CHEST: No deformities. LUNGS: Decreased breath sounds right. LUNGS: Clear breath sounds. HEART: Normal sinus rhythm. Grade 2/6 systolic murmur, no gallops or rubs. ABDOMEN: Globular, soft, nontender. EXTREMITIES: Positive for edema. MEDICATIONS: 06/25/2017 - Reviewed. LABORATORY: 06/25/2017 - White count 8, hemoglobin 10.2, sodium 141, potassium 3.4, chloride 100, carbon dioxide 30, BUN 111, creatinine 3.55, GFR 17 mL per minute. Calcium 9.1, AST 18, ALT 10. ASSESSMENT AND PLAN: 1. Acute kidney injury on top of his chronic renal failure - superimposed prerenal azotemia. Creatinine is slightly higher from yesterday and for the last previous days. My bias is to hold off his Bumex temporarily. We will restart as needed. 2. There is no indication for any dialytic intervention. Continue supportive care. 3. Ascites. Patient is status post paracentesis. Cytology report showed reactive mesothelial cells with no evidence of malignancy. Recheck basic met and CBC in a.m. MTDD
--- NOTE | 2017-06-25 12:51 | PDOC.PN ---
- Subjective Encounter Start Date: 06/25/17 Encounter Start Time: 08:15 Patient seen and examined. No new complaints. No overnight events - Objective MAR Reviewed: Yes Vital Signs & Weight: Vital Signs (12 hours) Temp Pulse Resp BP Pulse Ox 06/25/17 08:08 108/72 06/25/17 08:00 97.9 F 88 12 93 L 06/25/17 07:58 97.9 F 88 12 94/61 93 L 06/25/17 06:36 99 20 94 L 06/25/17 04:25 91 L 06/25/17 04:00 97.7 F 92 18 102/69 91 L 06/25/17 00:57 102 H 20 96 Weight Weight 198 lb I&O: 06/24/17 06/25/17 06/26/17 06:59 06:59 06:59 Intake Total 1260 1080 Output Total 975 1525 Balance 285 -445 Result Diagrams: 06/25/17 04:27 06/25/17 04:27 Additional Labs: Accuchecks 06/21/17 12:04 POC Glucose 205 H EKG Reviewed by me: Yes Phys Exam - Physical Examination Constitutional: NAD HEENT: PERRLA, moist MMs, sclera anicteric Neck: no JVD, supple Respiratory: no wheezing, no rales, no rhonchi Cardiovascular: RRR, no significant murmur, no rub Gastrointestinal: soft, positive bowel sounds ascites+ Musculoskeletal: pulses present, edema present Neurological: non-focal, normal sensation, moves all 4 limbs Psychiatric: normal affect, A&O x 3 Skin: no rash, normal turgor Dx/Plan (1) Acute worsening of stage 4 chronic kidney disease Code(s): N28.9 - DISORDER OF KIDNEY AND URETER, UNSPECIFIED; N18.4 - CHRONIC KIDNEY DISEASE, STAGE 4 (SEVERE) Status: Acute (2) Anasarca Code(s): R60.1 - GENERALIZED EDEMA Status: Acute (3) Ascites Code(s): R18.8 - OTHER ASCITES Status: Acute (4) CHF (congestive heart failure) Code(s): I50.9 - HEART FAILURE, UNSPECIFIED Status: Acute (5) Cirrhosis, cardiac Code(s): K76.1 - CHRONIC PASSIVE CONGESTION OF LIVER Status: Acute (6) Pleural effusion Code(s): J90 - PLEURAL EFFUSION, NOT ELSEWHERE CLASSIFIED Status: Acute (7) Anemia, normocytic normochromic Code(s): D64.9 - ANEMIA, UNSPECIFIED Status: Chronic (8) CAD (coronary artery disease) Code(s): I25.10 - ATHSCL HEART DISEASE OF [place] CORONARY ARTERY W/O ANG PCTRS Status: Chronic (9) COPD (chronic obstructive pulmonary disease) Status: Chronic (10) Diabetes type 2, controlled Code(s): E11.9 - TYPE 2 DIABETES MELLITUS WITHOUT COMPLICATIONS Status: Chronic (11) Dyslipidemia Code(s): E78.5 - HYPERLIPIDEMIA, UNSPECIFIED Status: Chronic (12) GERD (gastroesophageal reflux disease) Code(s): K21.9 - GASTRO-ESOPHAGEAL REFLUX DISEASE WITHOUT ESOPHAGITIS Status: Chronic (13) Hx of CABG Status: Chronic (14) Hypertension Code(s): I10 - ESSENTIAL (PRIMARY) HYPERTENSION Status: Chronic (15) Hypothyroidism Code(s): E03.9 - HYPOTHYROIDISM, UNSPECIFIED Status: Chronic (16) Thrombocytopenia Code(s): D69.6 - THROMBOCYTOPENIA, UNSPECIFIED Status: Chronic (17) Hypokalemia Code(s): E87.6 - HYPOKALEMIA Status: Acute - Plan cont current plan of care * give potassium replacement today * renal function worse today, nephrology following * without diuresis, his edema will not improve, he does not have good diuresis * GI following * echo report is pending * medication reviewed as below * symptomatic treatment. Review of Systems - Review of Systems Constitutional: negative: Fever, Chills, Sweats, Weakness, Malaise, Other ENT: negative: Ear Pain, Ear Discharge, Nose Pain, Nose Discharge, Nose Congestion, Mouth Pain, Mouth Swelling, Throat Pain, Throat Swelling, Other Respiratory: Shortness of Breath, SOB with Excertion. negative: Cough, Dry, Hemoptysis, Pleuritic Pain, Sputum, Wheezing Cardiovascular: Edema. negative: Chest Pain, Palpitations, Orthopnea, Paroxysmal Noc. Dyspnea, Light Headedness, Other Gastrointestinal: negative: Nausea, Vomiting, Abdominal Pain, Diarrhea, Constipation, Melena, Hematochezia, Other Genitourinary: negative: Dysuria, Frequency, Incontinence, Hematuria, Retention , Other Musculoskeletal: negative: Neck Pain, Shoulder Pain, Arm Pain, Back Pain, Hand Pain, Leg Pain, Foot Pain, Other - Medications/Allergies Allergies/Adverse Reactions: Allergies Allergy/AdvReac Type Severity Reaction Status Date / Time atorvastatin calcium Allergy Verified 07/24/16 17:22 [From Lipitor] codeine Allergy Verified 07/24/16 17:22 furosemide Allergy Verified 07/24/16 17:22 simvastatin [From Zocor] Allergy Verified 07/24/16 17:22 Medications: Current Medications Acetaminophen (Tylenol) 650 mg PO Q4H PRN PRN Reason: Headache/Fever or Pain Last Admin: 06/24/17 20:32 Dose: 650 mg Al Hydroxide/Mg Hydroxide (Maalox) 15 ml PO Q4H PRN PRN Reason: Heartburn or Indigestion Albuterol Sulfate (Albuterol Sulfate) 1.25 mg NEB Q8HR PRN PRN Reason: SOB &/or Wheezing Last Admin: 06/25/17 00:57 Dose: 1.25 mg Allopurinol (Zyloprim) 150 mg PO DAILY [facility] Last Admin: 06/25/17 08:02 Dose: 150 mg Arformoterol Tartrate (Brovana) 15 mcg NEB BID-RT [facility] Last Admin: 06/25/17 06:38 Dose: 15 mcg Artificial Tears (Tears Naturale) 0 drop EA EYE PRN PRN PRN Reason: Dry Eyes Ascorbic Acid (Vitamin C) 500 mg PO DAILY [facility] Last Admin: 06/25/17 08:02 Dose: 500 mg Aspirin (Aspirin Chewable) 81 mg PO DAILY [facility] Last Admin: 06/25/17 08:04 Dose: Not Given Benzonatate (Tessalon) 100 mg PO TIDPRN PRN PRN Reason: Cough Last Admin: 06/24/17 20:32 Dose: 100 mg Bisacodyl (Dulcolax) 10 mg IA DAILYPRN PRN PRN Reason: Constipation Budesonide (Pulmicort Neb Solution) 0.25 mg NEB BID-RT [facility] Last Admin: 06/25/17 06:36 Dose: 0.25 mg Calcitriol (Rocaltrol) 0.25 mcg PO DAILY [facility] Last Admin: 06/25/17 08:02 Dose: 0.25 mcg Carvedilol (Coreg) 3.125 mg PO BID [facility] Last Admin: 06/25/17 08:01 Dose: 3.125 mg Colchicine (Colcrys) 0.6 mg PO DAILYPRN PRN PRN Reason: pain Guaifenesin (Robitussin Sf) 200 mg PO Q4H PRN PRN Reason: Cough Hydralazine HCl (Apresoline) 10 mg SLOW IVP Q4H PRN PRN Reason: Systolic BP > 180 Isosorbide Mononitrate (Imdur Er) 30 mg PO DAILY [facility] Last Admin: 06/25/17 08:01 Dose: 30 mg Lactulose (Lactulose) 10 gm PO DAILYPRN PRN PRN Reason: Constipation Levothyroxine Sodium (Synthroid) 50 mcg PO 0600 [facility] Last Admin: 06/25/17 06:06 Dose: 50 mcg Loperamide HCl (Imodium) 2 mg PO PRN PRN PRN Reason: Diarrhea/Loose Stools Loratadine (Claritin) 10 mg PO DAILYPRN PRN PRN Reason: Sinus Symptoms Magnesium Hydroxide (Milk Of Magnesium) 30 ml PO DAILYPRN PRN PRN Reason: Constipation Mineral Oil/White Petrolatum (Eucerin Cream) 0 gm TOP BIDPRN PRN PRN Reason: Dry Skin Multivitamins (Theragran) 1 tab PO BID [facility] Last Admin: 06/25/17 08:02 Dose: 1 tab Nitroglycerin (Nitrostat) 0.4 mg SL DAILY PRN PRN Reason: Chest Pain Ondansetron HCl (Zofran Odt) 4 mg PO Q6H PRN PRN Reason: Nausea/Vomiting Ondansetron HCl (Zofran) 4 mg IVP Q6H PRN PRN Reason: Nausea/Vomiting Pantoprazole Sodium (Protonix) 40 mg PO DAILY [facility] Last Admin: 06/25/17 08:02 Dose: 40 mg Phenol (Chloraseptic Lott 180 Ml Bot) 0 ml PO PRN PRN PRN Reason: Sore Throat Rosuvastatin Calcium (Crestor) 10 mg PO HS [facility] Last Admin: 06/24/17 20:32 Dose: 10 mg Sodium Chloride (Flush - Normal Saline) 10 ml IVF Q12HR [facility] Last Admin: 06/25/17 08:02 Dose: 10 ml Sodium Chloride (Flush - Normal Saline) 10 ml IVF PRN PRN PRN Reason: Saline Flush Sodium Chloride ([place] Nasal [place]ott 0.65%) 0 ml EA NARE QIDPRN PRN PRN Reason: Nasal Congestion Spironolactone (Aldactone) 100 mg PO QAM-WM [facility] Last Admin: 06/25/17 08:02 Dose: 100 mg Tramadol HCl (Ultram) 50 mg PO DAILYPRN PRN PRN Reason: Pain
[2017-06-25] MEDS ORDERED: Potassium Chloride 20 MEQ TAB PO SCH (13:00)
--- NOTE | 2017-06-25 17:57 | PRG ---
DATE OF SERVICE: 06/25/2017 SUBJECTIVE: The patient is eating okay today. He is feeling a little full. He has had no nausea o r vomiting. Bowel movements are okay. OBJECTIVE: VITAL SIGNS: Temperature 98.0, pulse 97, respiratory rate 14, blood pressure 103/68. CHEST: Clear. CARDIOVASCULAR: Regular rate and rhythm. ABDOMEN: Distended, positive fluid wave. EXTREMITIES: Show some edema. LABORATORY DATA: Total protein in the peritoneal fluid is 4.1, fluid albumin is 2.8 and amylase is 13. ASSESSMENT AND PLAN: 1. Cardiogenic ascites -- the patient's serum ascites albumin gradient is greater than 1.1 consiste nt with portal hypertension; however, his total protein is very high of 4.1 consistent with cardioge kyler ascites. 2. Nodular liver on CT scan -- the patient is having no thrombocytopenia. Normal LFTs and normal a lbumin level. I doubt this patient has cirrhosis. 3. Congestive heart failure. RECOMMENDATIONS: 1. Continue diuresis. 2. As needed paracentesis. 3. We will follow at a distance.
[2017-06-25] MEDS: Acetaminophen 325 MG TAB PO PRN (23:36)
[2017-06-26] MEDS: Albuterol Sulfate 1.25 MG/3 ML NEB NEB PRN ×3 (00:28→23:56)
[2017-06-26 05:23] LABS: #Eosinphils 0.3 thou/uL (0.0-0.7); #Lymphocytes 0.5 thou/uL (1.20-3.40); #Monocytes 0.6 thou/uL (0.11-0.59); #Neutrophils 5.3 thou/uL (1.40-6.50); %Eosinophils 4.2 % (0.0-10.0); %Lymphocytes 7.5 % (21.0-51.0); %Monocytes 8.5 % (0.0-10.0); Mean Platelet Volume 10.1 fL (7.4-10.4); Red Blood Cell (RBC) Count 3.07 mill/uL (4.70-6.10); White Blood Cell (WBC) Count 6.6 thou/uL (4.8-10.8)
[2017-06-26] MEDS: Levothyroxine Sodium 50 MCG TAB PO SCH (05:23)
[2017-06-26 05:32] LABS: Anion Gap 11 mmol/L (10-20); BUN (Urea Nitrogen) 103 mg/dL (8.4-25.7); BUN/Creatinine Ratio 29.68; Calc. Creatinine Clearance 22 mL/min (70-130); Calcium 9.2 mg/dL (7.8-10.44); Carbon Dioxide 33 mmol/L (23-31); Chloride 99 mmol/L (98-107); Estimated GFR-MDRD 17; Phosphorus 3.8 mg/dL (2.3-4.7)
[2017-06-26] MEDS: Spironolactone 100 MG TAB PO SCH (07:53)
[2017-06-26] MEDS: Calcitriol 0.25 MCG CAP PO SCH (07:53)
[2017-06-26] MEDS: Ascorbic Acid 500 mg Chewable Tablet PO SCH (07:53)
[2017-06-26] MEDS: Carvedilol 3.125 MG TAB PO SCH ×2 (07:54→20:51)
[2017-06-26] MEDS: Allopurinol 300 MG TAB PO SCH (07:54)
[2017-06-26] MEDS: Multivit, Therapeutic 1 TAB PO SCH ×2 (07:54→20:51)
[2017-06-26] MEDS: Budesonide 0.25 MG/2 ML NEB NEB SCH ×2 (07:57→19:14)
[2017-06-26] MEDS: Arformoterol 15 MCG/2 ML NEB NEB SCH ×2 (07:58→19:18)
--- NOTE | 2017-06-26 08:45 | PRG ---
DATE OF SERVICE: 06/26/2017 SUBJECTIVE: Mr. Ny is a 77-year-old white male followed up for his acute kidney injury on t op of his chronic renal failure. He was also noted to have ascites. He has undergone paracentesis. So far, the cytology showed no malignant cells. He has no new complaints today. His shortness of breath is at baseline. He denies any nausea, vomiting, or chest pain. OBJECTIVE: VITAL SIGNS: Blood pressure 112/64, heart rate 75, respiratory rate 16, temperature 97.7, and pulse ox 97%. GENERAL: Noted to be awake, alert, sitting comfortable, not in overt distress. SKIN: Adequate turgor. HEENT: He has pinkish conjunctivae, anicteric sclerae. NECK: No neck mass, no carotid bruits, no JVD. CHEST: No deformities. LUNGS: Decreased breath sounds. HEART: Normal sinus rhythm. No murmur, no gallops, no rubs. ABDOMEN: Globular, soft, nontender, no masses. EXTREMITIES: No edema. MEDICATIONS: On 06/26/2017 was reviewed. LABORATORY DATA: On 06/26/2017, sodium 140, potassium 3.4, chloride 99, carbon dioxide 33, BUN 103, creatinine 3.47, glucose 123, calcium 9.2, phosphorus 3.8, albumin 4.3. White count 6.6 and hemogl obin 9.6. ASSESSMENT AND PLAN: 1. Acute kidney injury on top of his chronic renal failure, superimposed prerenal azotemia. Creati nine is stabilizing. I have discontinued his Demadex. In addition, he is off metolazone, hold the diuretics for the moment. There is no indication for any dialytic intervention. 2. Ascites -- status post paracentesis. Cytology shows no evidence of malignancy. GI is following . 3. Shortness of breath, multifactorial - the patient has underlying chronic obstructive pulmonary d isease. Continue supportive care. Recheck basic met and CBC in a.m.
--- NOTE | 2017-06-26 09:36 | PDOC.PN ---
- Subjective Encounter Start Date: 06/26/17 Encounter Start Time: 07:45 Patient seen and examined. No new complaints. No overnight events - Objective MAR Reviewed: Yes Vital Signs & Weight: Vital Signs (12 hours) Temp Pulse Resp BP BP Pulse Ox 06/26/17 08:00 97.7 F 75 16 112/64 98 06/26/17 07:57 82 20 98 06/26/17 04:00 98.2 F 92 20 111/73 93 L 06/26/17 00:28 91 20 93 L Weight Weight 196 lb 6.4 oz I&O: 06/25/17 06/26/17 06/27/17 06:59 06:59 06:59 Intake Total 1080 800 Output Total 1525 1200 Balance -445 -400 Result Diagrams: 06/26/17 04:10 06/26/17 04:10 Additional Labs: Accuchecks 06/21/17 12:04 POC Glucose 205 H EKG Reviewed by me: Yes Phys Exam - Physical Examination Constitutional: NAD HEENT: PERRLA, moist MMs, sclera anicteric Neck: no JVD, supple Respiratory: no wheezing, no rales, no rhonchi Cardiovascular: RRR, no significant murmur, no rub Gastrointestinal: soft, positive bowel sounds ascites+ Musculoskeletal: pulses present, edema present Neurological: non-focal, normal sensation, moves all 4 limbs Lymphatic: no nodes Psychiatric: normal affect, A&O x 3 Skin: no rash, normal turgor Dx/Plan (1) Acute worsening of stage 4 chronic kidney disease Code(s): N28.9 - DISORDER OF KIDNEY AND URETER, UNSPECIFIED; N18.4 - CHRONIC KIDNEY DISEASE, STAGE 4 (SEVERE) Status: Acute (2) Anasarca Code(s): R60.1 - GENERALIZED EDEMA Status: Acute (3) Ascites Code(s): R18.8 - OTHER ASCITES Status: Acute Qualifiers: Ascites type: other type Qualified Code(s): R18.8 - Other ascites Comment: cardiac cirrhosis (4) CHF (congestive heart failure) Code(s): I50.9 - HEART FAILURE, UNSPECIFIED Status: Acute Qualifiers: Congestive heart failure type: diastolic Congestive heart failure chronicity: acute on chronic Qualified Code(s): I50.33 - Acute on chronic diastolic (congestive) heart failure (5) Cirrhosis, cardiac Code(s): K76.1 - CHRONIC PASSIVE CONGESTION OF LIVER Status: Chronic (6) Pleural effusion Code(s): J90 - PLEURAL EFFUSION, NOT ELSEWHERE CLASSIFIED Status: Chronic (7) Anemia, normocytic normochromic Code(s): D64.9 - ANEMIA, UNSPECIFIED Status: Chronic (8) CAD (coronary artery disease) Code(s): I25.10 - ATHSCL HEART DISEASE OF [place] CORONARY ARTERY W/O ANG PCTRS Status: Chronic (9) COPD (chronic obstructive pulmonary disease) Status: Chronic (10) Diabetes type 2, controlled Code(s): E11.9 - TYPE 2 DIABETES MELLITUS WITHOUT COMPLICATIONS Status: Chronic (11) Dyslipidemia Code(s): E78.5 - HYPERLIPIDEMIA, UNSPECIFIED Status: Chronic (12) GERD (gastroesophageal reflux disease) Code(s): K21.9 - GASTRO-ESOPHAGEAL REFLUX DISEASE WITHOUT ESOPHAGITIS Status: Chronic (13) Hx of CABG Status: Chronic (14) Hypertension Code(s): I10 - ESSENTIAL (PRIMARY) HYPERTENSION Status: Chronic (15) Hypothyroidism Code(s): E03.9 - HYPOTHYROIDISM, UNSPECIFIED Status: Chronic (16) Thrombocytopenia Code(s): D69.6 - THROMBOCYTOPENIA, UNSPECIFIED Status: Chronic (17) Hypokalemia Code(s): E87.6 - HYPOKALEMIA Status: Acute - Plan cont current plan of care, plan discussed w/ family * based on ascites fluid 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, that also contributes his anasarca * as per nephrology he does not have acute indication for HD but he is on edge of need for HD to make him euvolemic, otherwise he is always risk for bounce back * as his renal function is very marginal and he does not tolerate diuretic therapy, it would be very challenging to manage his fluid balance * I discussed these issue with pt and his daughter at length and they expressed understanding * ferritin is normal so will defer iron infusion which he gets outpt basis, after discharge * medication reviewed as below * symptomatic treatment * today will dc tele and transfer to medical floor. Review of Systems - Review of Systems ENT: negative: Ear Pain, Ear Discharge, Nose Pain, Nose Discharge, Nose Congestion, Mouth Pain, Mouth Swelling, Throat Pain, Throat Swelling, Other Respiratory: negative: Cough, Dry, Shortness of Breath, Hemoptysis, SOB with Excertion, Pleuritic Pain, Sputum, Wheezing Cardiovascular: Edema. negative: Chest Pain, Palpitations, Orthopnea, Paroxysmal Noc. Dyspnea, Light Headedness, Other Gastrointestinal: negative: Nausea, Vomiting, Abdominal Pain, Diarrhea, Constipation, Melena, Hematochezia, Other Genitourinary: negative: Dysuria, Frequency, Incontinence, Hematuria, Retention , Other Musculoskeletal: negative: Neck Pain, Shoulder Pain, Arm Pain, Back Pain, Hand Pain, Leg Pain, Foot Pain, Other - Medications/Allergies Allergies/Adverse Reactions: Allergies Allergy/AdvReac Type Severity Reaction Status Date / Time atorvastatin calcium Allergy Verified 07/24/16 17:22 [From Lipitor] codeine Allergy Verified 07/24/16 17:22 furosemide Allergy Verified 07/24/16 17:22 simvastatin [From Zocor] Allergy Verified 07/24/16 17:22 Medications: Current Medications Acetaminophen (Tylenol) 650 mg PO Q4H PRN PRN Reason: Headache/Fever or Pain Last Admin: 06/25/17 23:36 Dose: 650 mg Al Hydroxide/Mg Hydroxide (Maalox) 15 ml PO Q4H PRN PRN Reason: Heartburn or Indigestion Albuterol Sulfate (Albuterol Sulfate) 1.25 mg NEB Q8HR PRN PRN Reason: SOB &/or Wheezing Last Admin: 06/26/17 00:28 Dose: 1.25 mg Allopurinol (Zyloprim) 150 mg PO DAILY [facility] Last Admin: 06/26/17 07:54 Dose: 150 mg Arformoterol Tartrate (Brovana) 15 mcg NEB BID-RT [facility] Last Admin: 06/26/17 07:58 Dose: 15 mcg Artificial Tears (Tears Naturale) 0 drop EA EYE PRN PRN PRN Reason: Dry Eyes Ascorbic Acid (Vitamin C) 500 mg PO DAILY [facility] Last Admin: 06/26/17 07:53 Dose: 500 mg Aspirin (Aspirin Chewable) 81 mg PO DAILY [facility] Last Admin: 06/26/17 07:58 Dose: Not Given Benzonatate (Tessalon) 100 mg PO TIDPRN PRN PRN Reason: Cough Last Admin: 06/24/17 20:32 Dose: 100 mg Bisacodyl (Dulcolax) 10 mg FL DAILYPRN PRN PRN Reason: Constipation Budesonide (Pulmicort Neb Solution) 0.25 mg NEB BID-RT [facility] Last Admin: 06/26/17 07:57 Dose: 0.25 mg Calcitriol (Rocaltrol) 0.25 mcg PO DAILY [facility] Last Admin: 06/26/17 07:53 Dose: 0.25 mcg Carvedilol (Coreg) 3.125 mg PO BID [facility] Last Admin: 06/26/17 07:54 Dose: 3.125 mg Colchicine (Colcrys) 0.6 mg PO DAILYPRN PRN PRN Reason: pain Guaifenesin (Robitussin Sf) 200 mg PO Q4H PRN PRN Reason: Cough Hydralazine HCl (Apresoline) 10 mg SLOW IVP Q4H PRN PRN Reason: Systolic BP > 180 Isosorbide Mononitrate (Imdur Er) 30 mg PO DAILY [facility] Last Admin: 06/26/17 07:53 Dose: 30 mg Lactulose (Lactulose) 10 gm PO DAILYPRN PRN PRN Reason: Constipation Levothyroxine Sodium (Synthroid) 50 mcg PO 0600 [facility] Last Admin: 06/26/17 05:23 Dose: 50 mcg Loperamide HCl (Imodium) 2 mg PO PRN PRN PRN Reason: Diarrhea/Loose Stools Loratadine (Claritin) 10 mg PO DAILYPRN PRN PRN Reason: Sinus Symptoms Magnesium Hydroxide (Milk Of Magnesium) 30 ml PO DAILYPRN PRN PRN Reason: Constipation Mineral Oil/White Petrolatum (Eucerin Cream) 0 gm TOP BIDPRN PRN PRN Reason: Dry Skin Multivitamins (Theragran) 1 tab PO BID [facility] Last Admin: 06/26/17 07:54 Dose: 1 tab Nitroglycerin (Nitrostat) 0.4 mg SL DAILY PRN PRN Reason: Chest Pain Ondansetron HCl (Zofran Odt) 4 mg PO Q6H PRN PRN Reason: Nausea/Vomiting Ondansetron HCl (Zofran) 4 mg IVP Q6H PRN PRN Reason: Nausea/Vomiting Pantoprazole Sodium (Protonix) 40 mg PO DAILY [facility] Last Admin: 06/26/17 07:54 Dose: 40 mg Phenol (Chloraseptic [place] 180 Ml Bot) 0 ml PO PRN PRN PRN Reason: Sore Throat Rosuvastatin Calcium (Crestor) 10 mg PO HS [facility] Last Admin: 06/25/17 20:46 Dose: 10 mg Sodium Chloride (Flush - Normal Saline) 10 ml IVF Q12HR [facility] Last Admin: 06/26/17 07:55 Dose: 10 ml Sodium Chloride (Flush - Normal Saline) 10 ml IVF PRN PRN PRN Reason: Saline Flush Sodium Chloride (Royal Nasal [place] 0.65%) 0 ml EA NARE QIDPRN PRN PRN Reason: Nasal Congestion Spironolactone (Aldactone) 100 mg PO QAM-WM [facility] Last Admin: 06/26/17 07:53 Dose: 100 mg Tramadol HCl (Ultram) 50 mg PO DAILYPRN PRN PRN Reason: Pain
[2017-06-26 15:24] LABS: Alpha-1-Antitrypsin 207 mg/dL (90-200)
[2017-06-27] MEDS: Acetaminophen 325 MG TAB PO PRN (00:09)
[2017-06-27 04:12] LABS: #Eosinphils 0.4 thou/uL (0.0-0.7); #Lymphocytes 0.6 thou/uL (1.20-3.40); #Monocytes 0.6 thou/uL (0.11-0.59); #Neutrophils 5.4 thou/uL (1.40-6.50); %Basophils 0.2 % (0.0-1.0); %Eosinophils 5.1 % (0.0-10.0); Hematocrit 29.6 % (42.0-52.0); Mean Platelet Volume 10.1 fL (7.4-10.4); Red Blood Cell (RBC) Count 3.05 mill/uL (4.70-6.10); White Blood Cell (WBC) Count 6.9 thou/uL (4.8-10.8)
[2017-06-27 04:27] LABS: Anion Gap 15 mmol/L (10-20); BUN (Urea Nitrogen) 107 mg/dL (8.4-25.7); Calc. Creatinine Clearance 22 mL/min (70-130); Calcium 9.1 mg/dL (7.8-10.44); Carbon Dioxide 29 mmol/L (23-31); Chloride 100 mmol/L (98-107); Estimated GFR-MDRD 18
[2017-06-27] MEDS: Levothyroxine Sodium 50 MCG TAB PO SCH (05:54)
[2017-06-27] MEDS: Budesonide 0.25 MG/2 ML NEB NEB SCH ×2 (07:20→18:50)
[2017-06-27] MEDS: Arformoterol 15 MCG/2 ML NEB NEB SCH ×2 (07:21→18:50)
[2017-06-27] MEDS: Spironolactone 100 MG TAB PO SCH (08:37)
[2017-06-27] MEDS: Allopurinol 300 MG TAB PO SCH (08:38)
[2017-06-27] MEDS: Multivit, Therapeutic 1 TAB PO SCH ×2 (08:39→20:50)
[2017-06-27] MEDS: Ascorbic Acid 500 mg Chewable Tablet PO SCH (08:39)
[2017-06-27] MEDS: Calcitriol 0.25 MCG CAP PO SCH (08:40)
[2017-06-27] MEDS: Carvedilol 3.125 MG TAB PO SCH ×2 (08:45→20:50)
--- NOTE | 2017-06-27 14:04 | PDOC.PN ---
- Subjective Encounter Start Date: 06/27/17 Encounter Start Time: 11:30 -: old records requested/rev Subjective: feels SOB, on home oxygen 2L continuous, legs swollen, abdomen swollen - Objective MAR Reviewed: Yes Vital Signs & Weight: Vital Signs (12 hours) Temp Pulse Resp BP Pulse Ox 06/27/17 11:29 98.1 F 86 18 101/59 L 99 06/27/17 08:00 98.1 F 58 L 18 06/27/17 07:44 98.1 F 58 L 18 108/61 97 06/27/17 07:23 93 L 06/27/17 07:20 81 20 93 L 06/27/17 03:52 97.9 F 88 16 115/63 97 Weight Weight 201 lb 9.6 oz I&O: 06/26/17 06/27/17 06/28/17 06:59 06:59 06:59 Intake Total 800 500 300 Output Total 1200 500 Balance -400 0 300 Result Diagrams: 06/27/17 03:53 06/27/17 03:53 Additional Labs: Accuchecks 06/26/17 06/26/17 19:44 16:56 POC Glucose 188 H 146 H Phys Exam - Physical Examination HEENT: PERRLA, moist MMs Neck: no JVD Respiratory: no rales, no rhonchi decreased breath sounds bilaterally, minimal expiratory wheezing bilateral Cardiovascular: RRR, no significant murmur 2+pitting edema bilateral lower ext, anasarca up to mid abdomen Gastrointestinal: non-tender, positive bowel sounds mild distention trace pulses; difficult to assess with edema Neurological: non-focal, normal sensation, moves all 4 limbs Psychiatric: normal affect, A&O x 3 Dx/Plan (1) Anasarca Code(s): R60.1 - GENERALIZED EDEMA Status: Acute Comment: acute on chronic, multifactorial due to acute on CKD stage 4 and acute on chronic systolic CHF exacrbation, EF 40-45%. Cont diuresis per nephrology guidance to help avoid developing ESRD (2) Acute worsening of stage 4 chronic kidney disease Code(s): N28.9 - DISORDER OF KIDNEY AND URETER, UNSPECIFIED; N18.4 - CHRONIC KIDNEY DISEASE, STAGE 4 (SEVERE) Status: Acute Plan: acute on chronic, per nephro (3) CHF (congestive heart failure) Code(s): I50.9 - HEART FAILURE, UNSPECIFIED Status: Acute Qualifiers: Congestive heart failure type: systolic Congestive heart failure chronicity : acute on chronic Qualified Code(s): I50.23 - Acute on chronic systolic ( congestive) heart failure (4) Anemia, normocytic normochromic Code(s): D64.9 - ANEMIA, UNSPECIFIED Status: Chronic Comment: anemia of chronic renal failure (5) COPD (chronic obstructive pulmonary disease) Status: Chronic (6) Cirrhosis, cardiac Code(s): K76.1 - CHRONIC PASSIVE CONGESTION OF LIVER Status: Chronic (7) Diabetes type 2, controlled Code(s): E11.9 - TYPE 2 DIABETES MELLITUS WITHOUT COMPLICATIONS Status: Chronic Qualifiers: Diabetes mellitus complication status: with kidney complications Diabetes mellitus complication detail: with chronic kidney disease Diabetes mellitus 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 insulin use: without 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 use Chronic kidney disease stage: stage 4 (severe) Qualified Code(s): E11.22 - Type 2 diabetes mellitus with diabetic chronic kidney disease; N18.4 - Chronic kidney disease, stage 4 (severe ); N18.4 - Chronic kidney disease, stage 4 (severe); N18.4 - Chronic kidney disease, stage 4 (severe); N18.4 - Chronic kidney disease, stage 4 (severe) (8) Hypertension Code(s): I10 - ESSENTIAL (PRIMARY) HYPERTENSION Status: Chronic Qualifiers: Hypertension type: essential hypertension Qualified Code(s): I10 - Essential (primary) hypertension - Plan cont current plan of care as still is in fluid overload status, high risk for readmission. Will need -: additional diuresis per nephro guidance. * .
[2017-06-27] MEDS: Albuterol Sulfate 1.25 MG/3 ML NEB NEB PRN ×2 (15:20→18:47)
[2017-06-28] MEDS: Albuterol Sulfate 1.25 MG/3 ML NEB NEB PRN (01:41)
[2017-06-28 04:17] LABS: Anion Gap 17 mmol/L (10-20); BUN (Urea Nitrogen) 106 mg/dL (8.4-25.7); Calc. Creatinine Clearance 24 mL/min (70-130); Calcium 9.1 mg/dL (7.8-10.44); Carbon Dioxide 27 mmol/L (23-31); Chloride 101 mmol/L (98-107); Estimated GFR-MDRD 18; Magnesium 2.2 mg/dL (1.6-2.6); Phosphorus 3.7 mg/dL (2.3-4.7)
[2017-06-28] MEDS: Levothyroxine Sodium 50 MCG TAB PO SCH (05:12)
[2017-06-28] MEDS: Arformoterol 15 MCG/2 ML NEB NEB SCH (06:26)
[2017-06-28] MEDS: Budesonide 0.25 MG/2 ML NEB NEB SCH (06:26)
[2017-06-28 08:40] VITALS: BP 123/60; TEMP 98
[2017-06-28] MEDS: Spironolactone 100 MG TAB PO SCH (09:02)
[2017-06-28] MEDS: Calcitriol 0.25 MCG CAP PO SCH (09:03)
[2017-06-28] MEDS: Allopurinol 300 MG TAB PO SCH (09:03)
[2017-06-28] MEDS: Carvedilol 3.125 MG TAB PO SCH (09:03)
[2017-06-28] MEDS: Multivit, Therapeutic 1 TAB PO SCH (09:03)
[2017-06-28] MEDS: Ascorbic Acid 500 mg Chewable Tablet PO SCH (09:03)
--- NOTE | 2017-06-28 19:26 | DIS ---
DATE OF ADMISSION: 06/21/2017 DATE OF DISCHARGE: 06/28/2017 CONSULTANTS: Dr. Calderon Leal, Nephrology Service, Dr. Siva Banegas and Dr. Andrew Schaeffer, Gastrointest inal Service. IMAGES: 1. Chest x-ray, right-sided pleural effusion. 2. Electrocardiogram, atrial fibrillation with rapid ventricular response with premature ventricula r or aberrantly conducted complexes with ventricular rate of 104. 3. Renal ultrasound, which showed diffuse renal atrophy, no evidence of urinary tract obstruction, there was ascites and cholelithiasis. 4. Echocardiogram showed ejection fraction visually estimated at 40%-45% with D-shaped septum sugge sting pressure overload with moderate mitral regurgitation and severely thickened aortic valve with left atrium severely dilated and mildly enlarged right ventricular cavity. Diastolic function could not be assessed secondary to above-mentioned problems. DIAGNOSES AT THE TIME OF ADMISSION: 1. Acute on chronic systolic congestive heart failure. 2. Acute kidney injury with chronic kidney disease. 3. Acute chronic obstructive pulmonary disease exacerbation. 4. Hypertension. 5. Diabetes mellitus. DIAGNOSES AT TIME OF DISCHARGE: 1. Anasarca, improved. 2. Ascites status post paracentesis. 3. Congestive heart failure, acute on chronic exacerbation. 4. Acute on chronic kidney failure, improved. 5. Cardiac cirrhosis. 6. Right pleural effusion, chronic. 7. Normocytic normochromic anemia, chronic. 8. Coronary artery disease of [place] coronary artery. 9. Chronic obstructive pulmonary disease. 10. Diabetes mellitus, type 2. 11. Dyslipidemia, chronic. 13. Gastroesophageal reflux disease, chronic. 14. History of coronary artery bypass grafting. 15. Hypertension, chronic. 16. Hypothyroidism, chronic. 17. Thrombocytopenia, chronic. 18. Hypokalemia, acute, resolved. PROCEDURES: A paracentesis done on the 06/22/2017, of 4 liters of fluid was drained by radiologist. HOSPITAL COURSE: The patient is a 77-year-old male with past medical history of chronic k idney disease stage IV, congestive heart failure, hypertension, COPD; diabetes mellitus type 2, with multiple other problems; who came to the emergency room with complaints of bilateral lower extremit y swelling and lower abdominal wall swelling. He noticed increased shortness of breath for the last few days prior to this admission. He denied any chest pain and denied any palpitations. Complaint s of some dry cough. He denied any fever, chills, nausea, vomiting, diarrhea, blood stools or black stools. He was giving IV Bumex, since he is allergic to LASIX in the emergency room and got admitt ed to the hospital for further management of his problem. At the time of admission, his white count was 6.6, hemoglobin 12.3, platelet count was 120,000. Sodium 141, potassium 3.9, chloride 101, CO2 of 26, BUN of 81, creatinine of 3.65. His baseline creatinine was around 2.6. He was continued on IV Bumex. The patient was placed on IV steroids and Nephrology was consulted. His blood sugars we re monitored with a sliding scale. He was FULL CODE. Dr. Leal saw the patient and he recommended to discontinue metolazone what he was taking at home and he added albumin IV q.6 h. and asked to florentin pickens to hold of Bumex. Also because of significant amount of ascites and questionable cirrhosis, the GI specialist was consulted and Dr. Siva Banegas saw the patient. The patient had some liver nodular ity suggestive of liver cirrhosis, but his overall impression was that the patient was in congestive heart failure exacerbation on top of worsening renal function, rather than initial decompensation o f cirrhosis. 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 The patient was set up for paracentesis, which was done by Radiology the next day, and it was dra molina approximately 4 liters. To maintain intravascular volume, he was continued on salt poor albumi n and his Bumex was restarted, his kidney function gradually improved. He was continued on PT, and OT and DVT prophylaxis with SCDs. The cytology on his ascites came back without any malignant cells . The patient underwent echocardiogram which showed ejection fraction visually estimated at 40%-45% with moderate mitral regurgitation and severely dilated left atrium and severely thickened aortic v alve. There was D-shaped septum suggesting pressure overload and mild enlargement of the right vent ricle cavity. The patient was continued on his O2 and his Bumex was put on hold by Nephrology Juan Jose khan and patient was started on spironolactone 100 mg once a day. Today, he is doing significantly be tter. He improved tremendously from the time of admission to the time of discharge today. He is ab le to get up and go to the bathroom and ambulate with O2 with PT. PHYSICAL EXAMINATION: VITAL SIGNS: Showed blood pressure of 142/60, pulse is 93, respiratory rate is 16, O2 saturation is 97% on 2 liters, and temperature is 98.0 degrees Fahrenheit. LUNGS: He has decreased breath sounds at the right base. HEART: S1, S2, somewhat irregular. No S3, no S4. There is a systolic murmur best heard and mostly audible at the left sternal border 3/6, is most likely mitral regurgitation murmur. ABDOMEN: Obese with ascites, but significantly less than what it was before. EXTREMITIES: 2+ peripheral edema similar bilaterally. NEUROLOGIC: He is alert and oriented x3. There is not any motor deficits. Cranial nerves are inta ct. The case was discussed with Dr. 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 Also, he is going to be on DuoNeb q.8 h. p.r.n. as needed, allopurinol 150 mg once a day, Brovana 15 mcg inhalation twice a day, ascorbic acid 500 mg once a day, tessalon per [id number] mg 3 times a day, Pulmicort which is generic budesonide 0.25 mg nebulizers twice a day, calci triol 0.25 mcg once a day, carvedilol 3.125 mg twice a day, colchicine 0.6 mg once a day, isosorbide mononitrate 30 mg once a day, levothyroxine 50 mcg once a day every morning before breakfast, multi vitamin 1 twice a day, nitroglycerin 0.4 mg sublingual p.r.n. as needed, omeprazole 40 mg once a day , Crestor 10 mg once a day, aspirin 81 mg once a day. The patient is seen and examined before he is discharged. He is going to stay on a low salt. ACTIVITY: As tolerated. He is going to call Dr. Leal's office and he will set up followup appointment with him. Also, he a[facility]ana l [facility] where he comes [facility] Friday and gets some treatments for his anemia an d bone marrow problem from Dr. Dawkins. The time spent on this discharge is more than 30 minutes.
== END 2017-06-28 12:50 | disposition home or self-care (01) | DRG 291 ==
LOC: ERS 22:57 → 2NO 06-21 04:58 → ONC 06-26 12:02
PROVIDERS: ADMIT Internal Medicine; ATTEND Internal Medicine
PROC: 0W9G3ZX Drainage of Peritoneal Cavity, Percutaneous Approach, Diagnostic (ICD-10-PCS; principal; 2017-06-22)
DX: I13.0 Hypertensive heart and chronic kidney disease with heart failure and stage 1 through stage 4 chronic kidney disease, or unspecified chronic kidney disease (principal); I50.23 Acute on chronic systolic (congestive) heart failure; N18.4 Chronic kidney disease, stage 4 (severe); R18.8 Other ascites; D69.6 Thrombocytopenia, unspecified; J91.8 Pleural effusion in other conditions classified elsewhere; N17.9 Acute kidney failure, unspecified; E11.22 Type 2 diabetes mellitus with diabetic chronic kidney disease; J44.1 Chronic obstructive pulmonary disease with (acute) exacerbation; D64.9 Anemia, unspecified; E78.5 Hyperlipidemia, unspecified; E03.9 Hypothyroidism, unspecified; I25.10 Atherosclerotic heart disease of native coronary artery without angina pectoris; K21.9 Gastro-esophageal reflux disease without esophagitis; E87.6 Hypokalemia; Z89.021 Acquired absence of right finger(s); Z95.1 Presence of aortocoronary bypass graft; Z95.5 Presence of coronary angioplasty implant and graft; Z88.5 Allergy status to narcotic agent; Z88.8 Allergy status to other drugs, medicaments and biological substances
CPT/HCPCS: 36415; 36416; 49083; 71010; 76770; 80048; 80053; 80069; 80074; 80076; 82042; 82103; 82104; 82105; 82150; 82390; 82550; 82553; 82728; 83516; 83540; 83550; 83735; 83880; 83970; 84100; 84157; 84484; 85025; 85060; 85610; 85730; 86038; 88112; 89051; 90471; 90682; 93005; 93010; 93306; 93798; 94640; 96374; 96375; A4216; G0008; J2920; J2930; J3490; J7620; J7626; P9047; Q2036

== ENCOUNTER 2017-09-02 11:29 | Day surgery (SDC) | payer MEDICARE, OTHER ==
[2017-09-02] MEDS ORDERED: Sodium Chloride 0.9% 20 ML ONE (12:20)
[2017-09-02] MEDS ORDERED: Acetaminophen 500 MG TAB PO SCH (12:30)
[2017-09-02] MEDS ORDERED: Furosemide 40 MG/4 ML VIAL SLOW IVP SCH (12:45)
[2017-09-02] MEDS: diphenhydrAMINE 25 MG CAP PO SCH ×2 (12:53→13:06)
[2017-09-02] MEDS ORDERED: Bumetanide 1 MG TAB PO SCH (13:15)
[2017-09-02 18:25] VITALS: BP 109/59; TEMP 97.7
[2017-09-02 18:54] LABS: #Eosinphils 0.1 thou/uL (0.0-0.7); #Lymphocytes 0.7 thou/uL (1.20-3.40); #Monocytes 0.5 thou/uL (0.11-0.59); #Neutrophils 5.9 thou/uL (1.40-6.50); %Basophils 0.1 % (0.0-1.0); %Eosinophils 1.4 % (0.0-10.0); %Lymphocytes 9.5 % (21.0-51.0); %Monocytes 7.6 % (0.0-10.0); Hematocrit 30.6 % (42.0-52.0); Mean Platelet Volume 8.1 fL (7.4-10.4); Red Blood Cell (RBC) Count 3.06 mill/uL (4.70-6.10); White Blood Cell (WBC) Count 7.2 thou/uL (4.8-10.8)
== END 2017-09-02 18:46 | disposition home or self-care (01) ==
LOC: ONC/OP 11:29
PROVIDERS: ATTEND Internal Medicine Hematology & Oncology
PROC: 30233N1 Transfusion of Nonautologous Red Blood Cells into Peripheral Vein, Percutaneous Approach (ICD-10-PCS; principal; 2017-09-02)
DX: E11.22 Type 2 diabetes mellitus with diabetic chronic kidney disease (principal); I13.0 Hypertensive heart and chronic kidney disease with heart failure and stage 1 through stage 4 chronic kidney disease, or unspecified chronic kidney disease; N18.4 Chronic kidney disease, stage 4 (severe); I50.22 Chronic systolic (congestive) heart failure; D63.1 Anemia in chronic kidney disease; J44.9 Chronic obstructive pulmonary disease, unspecified; J90 Pleural effusion, not elsewhere classified; I25.10 Atherosclerotic heart disease of native coronary artery without angina pectoris; E78.5 Hyperlipidemia, unspecified; K21.9 Gastro-esophageal reflux disease without esophagitis; E03.9 Hypothyroidism, unspecified; D69.59 Other secondary thrombocytopenia; Z79.4 Long term (current) use of insulin; Z79.82 Long term (current) use of aspirin; Z79.899 Other long term (current) drug therapy; Z88.8 Allergy status to other drugs, medicaments and biological substances; Z88.5 Allergy status to narcotic agent; Z95.1 Presence of aortocoronary bypass graft; Z89.021 Acquired absence of right finger(s); Z98.890 Other specified postprocedural states; Z87.891 Personal history of nicotine dependence
CPT/HCPCS: 36415; 36430; 85025; 86850; 86900; 86901; A4216; P9016

== ENCOUNTER 2017-09-16 03:51 | Inpatient (IN) | payer MEDICARE, OTHER ==
[2017-09-16 05:04] LABS: ALT (SGPT) 12 U/L (8-55); AST (SGOT) 22 U/L (5-34); Albumin 3.5 g/dL (3.4-4.8); Alkaline Phosphatase 132 U/L (40-150); Anion Gap 24 mmol/L (10-20); Bilirubin, Total 1.1 mg/dL (0.2-1.2); CK (CPK) 48 U/L (30-200); Calc. Creatinine Clearance 0 mL/min (70-130); Calcium 9.2 mg/dL (7.8-10.44); Carbon Dioxide 22 mmol/L (23-31); Chloride 99 mmol/L (98-107); Estimated GFR-MDRD 7; Globulin 3.1 g/dL (2.4-3.5); Glucose 103 mg/dL (83-110); Potassium 4.5 mmol/L (3.5-5.1); Protein, Total 6.6 g/dL (5.8-8.1); Sodium 140 mmol/L (136-145)
[2017-09-16 05:06] LABS: CKMB 4.8 ng/mL (0-6.6); Troponin I 0.282 ng/mL (< 0.028)
[2017-09-16 05:15] LABS: BUN (Urea Nitrogen) 163 mg/dL (8.4-25.7)
[2017-09-16 05:16] LABS: Band 22 % (5-11); Hemoglobin 9.8 g/dL (14.0-18.0); Lymphocytes 5 % (21-51); MDiff Complete? YES; Mean Corpuscular HGB CONC 32.6 g/dL (32.0-36.0); Mean Corpuscular Hemoglobin 32.5 pg (27.0-31.0); Mean Corpuscular Volume 99.9 fl (80.0-94.0); Mean Platelet Volume 8.9 fL (7.4-10.4); Monocytes 8 % (0-10); Neutrophil 65 % (42-75); PLT Morphology Comment Appears Adequate; Platelet Count 151 thou/uL (130-400); RBC Distribution Width 17.8 % (11.5-14.5); White Blood Cell (WBC) Count 13.8 thou/uL (4.8-10.8)
[2017-09-16] MEDS ORDERED: Diltiazem 125 MG/25 ML ONE (05:56)
[2017-09-16] MEDS ORDERED: Diltiazem HCl 125 MG, Admixture Fee 1 EACH in Sodium Chloride 0.9% 100 ML IVPB SCH (06:00)
[2017-09-16 08:12] LABS: Troponin I 0.369 ng/mL (< 0.028)
--- NOTE | 2017-09-16 08:36 | RAD ---
SINGLE VIEW OF THE CHEST: Comparison: 06-20-17 History: Weakness for a few days and dyspnea. FINDINGS: Single view of the chest shows an enlarged but stable cardiomediastinal silhouette. The patient is st atus post CABG. There is a moderate right pleural effusion. This has enlarged compared to the prior e xam. Adjacent atelectasis is seen. IMPRESSION: Enlarging moderate right pleural effusion. POS: C
[2017-09-16] MEDS ORDERED: Acetaminophen 325 MG TAB PO PRN (08:54)
[2017-09-16] MEDS ORDERED: Colchicine 0.6 MG TAB PO PRN (08:54)
[2017-09-16] MEDS ORDERED: Bisacodyl 5 MG TAB PO PRN (08:54)
[2017-09-16] MEDS ORDERED: Benzonatate 100 MG CAP PO PRN (08:54)
[2017-09-16] MEDS ORDERED: Acetaminophen 650 MG Suppository PR PRN (08:54)
[2017-09-16] MEDS ORDERED: Nitroglycerin 0.4 MG TAB (25 Tab Bottle) SL PRN (08:54)
[2017-09-16] MEDS ORDERED: Loperamide HCl 2 MG CAP PO PRN (08:54)
[2017-09-16] MEDS ORDERED: Albuterol Sulfate 1.25 MG/3 ML NEB NEB PRN (08:54)
[2017-09-16] MEDS ORDERED: cefTRIAXone\\ROCEPHIN 1 GM in Sodium Chloride 0.9% 100 ML IVPB SCH (09:00)
[2017-09-16] MEDS ORDERED: HumaLOG 300 UNITS/3 ML VIAL SC PRN ×2 (09:01)
[2017-09-16] MEDS ORDERED: Dextrose 5% in Water 1,000 ML IV PRN (09:01)
[2017-09-16] MEDS ORDERED: Dextrose 50% Abboject 50 ML SYRINGE SLOW IVP PRN (09:01)
[2017-09-16] MEDS ORDERED: Diltiazem 125 MG in Sodium Chloride 0.9% 100 ML IVPB SCH (09:15)
--- NOTE | 2017-09-16 10:06 | HP ---
PRIMARY CARE PHYSICIAN: Dr. Rad Quijano CHIEF COMPLAINT: Leg pain and palpitations. HISTORY OF PRESENT ILLNESS: This is a 77-year-old white male with a known history of severe congesti ve heart failure, likely mixed with cardiac induced cirrhosis of the liver, ascites, chronic lower ex tremity edema and cardiorenal syndrome. He was in the hospital here in June of this year at which time he had a paracentesis by Dr. Siva Banegas and had management of his renal failure by Dr. Leal. Th e patient has been continuing to decline since discharged home. He has chronic shortness of breath t hat is relieved with 2 liters of oxygen with a chronic cough and chronic lower extremity edema. He h as developed draining skin tears on bilateral feet and legs from his chronic edema and the constant l eaking of fluid has made him stop putting on his SANTOS hose. The patient usually is able to get up and walk around some. However, over the last 2-3 days he has had worsening bilateral leg pain from the thighs all the way down to the feet. It was worse on the left side. He has had some pain chronicall y that is significantly worse over the last 2-3 days and then it moved over to the right leg, has sev erely worsened. Yesterday he was need unable to stand and eventually he came into the emergency room today. He has also had worsening palpitations of his heart. He has a history of atrial fibrillatio n; however, he had some bradycardia and hypotension, so he had his Coreg stopped by the [facility]. The patient was seen in the emergency room, he was found to be in atrial fibrillation with rapid ventricular rate in the 120s to 130s with borderline blood pressures in the 80s to 90s systolic , but with normal mental status. He was put on a diltiazem drip with improvement in his rate into th e low 100s and no changes in his blood pressure. The patient's blood work did show a mild leukocytos is and a severely elevated creatinine usually 3-4, is now up to [address] Leal was consulted from the emergency room and he is being admitted to the hospital. The patient's daught er is with him in the room also had noticed today in the ER that his right thigh has some redness, bu t it does not usually have and that is where he is most tender. PAST MEDICAL HISTORY: Reviewed with patient and from chart. 1. Congestive heart failure, likely mixed with a recent ejection fraction of 40-45% and had D-shaped septum with mitral and aortic valve disease. 2. Anasarca. 3. Cardiac cirrhosis with ascites. 4. Chronic kidney failure, stage 4. 5. Chronic right pleural effusion. 6. Chronic normocytic anemia seeing Dr. Dawkins. 7. Coronary artery disease. 8. Chronic obstructive pulmonary disease. 9. Diabetes mellitus type 2. 10. Dyslipidemia. 11. Gastroesophageal reflux disease. 12. Hypertension. 13. Hypothyroidism. 14. Chronic thrombocytopenia. PAST SURGICAL HISTORY: 1. Coronary artery bypass grafting. 2. Right finger amputation. 3. Wrist surgery. 4. Watchman procedure. FAMILY HISTORY: Positive for heart problems. SOCIAL HISTORY: No tobacco, alcohol, or illicit drug use. He is cared for by his daughter and his s on who share in helping him make medical decisions. His daughter's name is Milena Coleman and the son 's name is Jeffy Ny Jr. ALLERGIES: 1. ATORVASTATIN. 2. SIMVASTATIN. 3. CODEINE. 4. FUROSEMIDE. CURRENT MEDICATIONS: The patient does not have active medication list with him; however, he states h christiano is on the same medications as previously except for his carvedilol has been held. 1. Tramadol 50 mg as needed. 2. Spironolactone 100 mg daily. 3. Rosuvastatin 10 mg daily. 4. Omeprazole 40 mg daily. 5. Nitroglycerin as needed. 6. Multivitamin 1 cap twice a day. 7. Zaroxolyn 2.5 mg daily as needed. 8. Levothyroxine 50 mcg daily. 9. Imdur 30 mg daily. 10. Novolin 70/30 by some sort of sliding scale. 11. Colchicine 0.6 mg p.o. daily as needed for gout flares. 12. Calcitriol 0.25 mcg daily. 13. Bumex 1 mg daily. 14. Budesonide 0.25 mg nebs twice a day. 15. Tessalon 100 mg 3 times a day as needed for cough. 16. Aspirin 81 mg daily. 17. Vitamin C 500 mg daily. 18. Brovana 15 mcg neb twice a day. 19. Allopurinol 150 mg daily. 20. Albuterol nebs q.8h. as needed for coughing, wheezing, shortness of breath. REVIEW OF SYSTEMS: CONSTITUTIONAL: No fevers, no chills, generalized weakness that has been chronic and slightly worsen ing over the past 3 months since his last hospital admission. EYES: No double vision or blurred vision. ENT: No congestion, drainage or sore throat. CARDIOVASCULAR: Palpitations as per HPI. No chest pains. PULMONARY: Chronic coughing and shortness of breath that has not been worsening recently and he feel s comfortable as long as he is on his oxygen. GASTROINTESTINAL: He had some nausea, no vomiting. No abdominal pain. He did have some diarrhea la week that improved with some Imodium and had another episode of diarrhea yesterday. No blood or m ucus in the diarrhea. GENITOURINARY: No dysuria or hematuria. Urine has been dark. He thinks he has been urinating the n ormal amount though. MUSCULOSKELETAL: See HPI about swelling and pain of extremities. SKIN: See HPI. NEUROLOGIC: No numbness, tingling or focal weakness. PHYSICAL EXAMINATION: VITAL SIGNS: Blood pressure initially 89/56, pulse 121, respirations 28, temperature 98.1, O2 sat 94 % on 2 liters. After the diltiazem drip the patient is now blood pressure of 85/52, pulse 103, respi rations 26, O2 sat 92% on 2 liters. His temperatures remain afebrile in the emergency room. He did have a drop of his systolic blood pressure down to 75/58 at one point, but it rebounded back up to 10 0 systolic without intervention. This was asymptomatic at that time. GENERAL: This is a well-developed, thin white male who appears very weak and with mild respiratory d istress, increased work of breathing, though he denies feeling short of breath right now. HEENT: Eyes; pupils equal, round, and react to light. Oropharynx clear without lesions, erythema or exudate. NECK: Supple, no lymphadenopathy, no thyroid nodules or enlargement. He does have significant JVD. CARDIOVASCULAR: Heart, irregularly irregular rhythm, currently well controlled without murmurs. Rat e is currently well controlled without murmurs. LUNGS: He had decreased breath sounds in the lower half of his right lung, otherwise clear to auscul tation bilaterally, no wheezes, crackles or rhonchi. ABDOMEN: Soft, distended, but not tense, nontender to palpation, normoactive bowel sounds, no hepato splenomegaly palpable. The patient reports that in his [facility] his abdominal girth has actually decreased recently. EXTREMITIES: The patient has 1+ lower extremity edema to bilateral extremities up to about the knee. He has some mild redness on the medial right thigh that is minimally warm and very tender to palpat ion with some mild edema in that area as well. He has edema in his left medial thigh as well, but no redness and not significantly tender. His lower extremities have chronic darkening from chronic swe lling and he has a few very superficial skin tears that are leaking clear fluid, no evidence of pus, no evidence of cellulitis in the legs, just in that thigh. PSYCHIATRIC: Alert and oriented x3, normal mood and affect. LABORATORY: White blood cell count 13.8, which is elevated, but he is within normal limits, hemoglob in 9.8, which is about stable for him. Platelet count is actually normal today. He does have a band emia of 22%. A complete metabolic panel was notable for carbon dioxide of 22, anion gap of 24, BUN o f 163 and creatinine of 7.18, usually runs in the mid 3s, most recently. No hyperkalemia today. The rest of his liver function tests were all normal. His brain natriuretic peptide is elevated at 1500 , which is about 500 points more than his previous max. His troponin was indeterminate and then bump ed up to elevated from 0.282 up to 0.369 without any active chest pain. Chest x-ray: I did review t he chest x-ray in the emergency room along with the radiologist's report. The patient has a moderate sized right pleural effusion which is enlarged compared to the previous hospitalization. No other s ignificant changes. EKG, the patient's EKG in the emergency room shows atrial fibrillation with rapi d ventricular rate. ASSESSMENT AND PLAN: 1. Leg pain with redness and leukocytosis, likely a cellulitis from bacteria entering the wounds on his lower extremities. We will give patient a dose of Rocephin after he already got blood culture dr yañez in the emergency room and we will follow him closely in the hospital. It looks mild at this poin t. If he has continued worsening on Rocephin, we can expand to vancomycin as well, though he does no t have any evidence of purulence at this time to indicate a Staph infection or methicillin-resistant Staphylococcus aureus. 2. Atrial fibrillation with rapid ventricular rate. He is off of his carvedilol secondary to side e ffects from it and the acute worsening of the heart rate is likely due to his infection. We will con tinue the patient's diltiazem drip. I have consulted Cardiology, I believe Dr. Austin is plant taxonomy teacher for Dr. Tan today. We will also continue patient's cardiac meds except for the carvedilol which h as been stopped and for his diuretics. 3. Acute worsening of chronic renal failure. The patient likely needs dialysis versus hospice care. I have talked to Dr. Leal and he is going to evaluate the patient in the hospital and talked him aga in about dialysis. We will put him on a fluid restricted diet and give him a renal, low sodium diet and monitor creatinine closely. We will hold all diuretics for now. 4. Chronic lower extremity edema. We will put the patient in SANTOS hose. 5. Lower extremity venous ulcers. We will have Wound Care evaluate the patient. 6. Diabetes mellitus type 2. We will put patient on a low insulin sliding scale and do fingerstick blood sugars q.a.c. and at bedtime. 7. Gastrointestinal prophylaxis. We will resume patient's PPI. 8. Chronic congestive heart failure with pleural effusion, lower extremity edema and ascites. This actually appears though his BNP is up from his renal failure, he does not appear to be with any signi ficant worsening of his fluid overload at this time. We will continue heart medicines as above. 9. History of coronary artery disease. We will give patient p.r.n. nitro if needed. 10. Deep venous thrombosis prophylaxis. The patient has apparently some sort of clot. Patient has increased lower extremity pains. We will get an ultrasound of his lower extremities to look for deep venous thrombosis. We will hold off on anticoagulation for now, given his history of anemia and pre vious blood loss. He does have a Watchman procedure in his heart to prevent atrial fibrillation clot s. CODE STATUS: I did discuss this at length with the patient, he states that if his heart were to stop he would like attempt at resuscitation with chest compressions and shock, but only one time and if i t does not work, then to let him go. He adamantly refuses intubation and ventilation on the ventilat or, so he is DNI. Should he be incapacitated both his daughter and his son listed above in the past social history would be his medical decision makers.
--- NOTE | 2017-09-16 10:15 | CON ---
DATE OF CONSULTATION: 09/16/2017 HISTORY OF PRESENT ILLNESS: Mr. Ny is a 77-year-old white male with known history of CHF, chronic renal failure, admitted for generalized malaise with worsening tonya rtness of breath. Initial evaluation showed a chest x-ray with enlarging moderate right pleural effu nikhil. Please note, this patient has been on significant diuretic regimen at home. We are now being consulted for further management of the worsening renal dysfunction. REVIEW OF SYSTEMS: Positive for shortness of breath, positive for generalized malaise. No nausea, n o vomiting, no diarrhea, no gross hematuria, no dysuria, no urinary frequency, no hematochezia, no me leesa, no hematemesis, no abdominal pain. Positive for right leg erythema. HOME MEDICATIONS: Included following, tramadol 50 mg daily p.r.n., spironolactone 100 mg q.a.m., Cre stor 10 mg daily at bedtime, omeprazole 40 mg tab once a day, nitroglycerin 0.4 mg sublingual daily, multivitamin daily, metolazone 2.5 mg daily p.r.n., levothyroxine 50 mcg daily, Imdur 30 mg daily, co lchicine 0.6 mg p.o. daily - p.r.n., Coreg 3.125 mg p.o. b.i.d., calcitriol 0.25 mcg daily, Bumex 1 m g p.o. daily, Pulmicort nebs treatment b.i.d., Tessalon Perles 100 mg p.o. t.i.d., aspirin 81 mg eliseo y, ascorbic acid 500 mg daily, allopurinol 150 daily, DuoNeb q.8 hours. PAST MEDICAL HISTORY: 1. History of congestive heart failure. 2. Patient has a history of gout. 3. Chronic obstructive pulmonary disease. 4. Status post atrial fibrillation. 5. Status post gastrointestinal bleed. 6. History of coronary artery disease. PAST SURGICAL HISTORY: 1. Status post cardiac catheterization. 2. Status post CABG. 3. Status post right middle and ring finger amputation. SOCIAL HISTORY: The patient lives in [place]. He lives alone. He has 6 children. His daughter is currently taking care of him. Currently, no smoking, no alcohol intake, no IV drug abuse. ALLERGIES: LIPITOR and ZOCOR. TRAUMA: None. IMMUNIZATIONS: Up-to-date. HOSPITALIZATIONS: Please see past medical history. FAMILY HISTORY: No family history of ESRD. PHYSICAL EXAMINATION: VITAL SIGNS: Blood pressure is noted at 86/70, heart rate 70. GENERAL EXAM: Awake, lethargic, obese, not in overt distress. SKIN: Adequate turgor. HEENT: Slightly pale conjunctivae. Anicteric sclerae. NECK: No neck mass, no carotid bruits, no JVD. CHEST: No deformities. LUNGS: Decreased breath sounds. HEART: Normal sinus rhythm. No murmur, no gallops, no rubs. ABDOMEN: Globular, soft, nontender, no masses. EXTREMITIES: Trace edema. Mild erythema, right leg. LABORATORY DATA: Laboratories of 09/16/2017, white count 13.8, hemoglobin 9.8. Sodium 140, potassiu m 4.5, chloride 99, carbon dioxide 22, BUN 163, creatinine 7.18, glucose 103, calcium 9.2, AST 22, AL T 12, BNP 1590. Chest x-ray shows an enlarging pleural effusion - right. ASSESSMENT AND PLAN: 1. Shortness of breath - multifactorial etiology. Right pleural effusion is enlarging. This may be the predominant etiology of the shortness of breath. We will arrange for a therapeutic thoracentesi s with Radiology with this patient. 2. Acute kidney injury on top of his chronic renal failure, worsening renal dysfunction. We will di scontinue all diuretics, which will include spironolactone and Bumex as well as metolazone. I will b e starting this patient salt poor albumin 25 grams IV q.6 hours. We will hold off any dialytic inter vention for the moment. Should he further worsen from a renal point of view or become clinically ure susana, we will initiate dialysis. I had a long discussion with the patient and his daughter regarding this. Case discussed also with the hospitalist. Overall, I agree with current management.
--- NOTE | 2017-09-16 10:43 | ULT ---
BILATERAL UPPER EXTREMITY DUPLEX VENOUS DOPPLER ULTRASOUND CPT: 71016 ICD-10-PCS: B54D INDICATIONS: Lower extremity edema with progressive thigh pain. TECHNIQUE: Color-flow Doppler, spectral wave-form analysis of pulsed Doppler, and Schaeffer-scale imaging with compre ssion and augmentation were used to evaluate the bilateral common femoral, femoral, popliteal, advertising agency manager ior tibial, and superficial femoral veins, and the proximal portions of the profunda femoral and grea ter saphenous veins. FINDINGS: There is appropriate flow within the imaged deep venous system of each lower extremity. Compression is not performed due the patient's inability to tolerate. Within limitations, no DVT identified. Th ere is evidence of soft tissue edema. A localized fluid echogenicity collection is seen at the right popliteal fossa, nonspecific. IMPRESSION: 1. No deep venous thrombosis identified within limitations. Compressibility not performed due to th e patient's inability to tolerate. 2. Scattered areas of soft tissue edema. This is most localizable within the right popliteal fossa region. Correlate clinically. POS: ДМИТРИЙ
--- NOTE | 2017-09-16 11:51 | CON ---
DATE OF CONSULTATION: 09/16/2017 REASON FOR CONSULTATION: Heart failure. PRIMARY OPERATIONS/DISPATCH: Dr. Bird Tan HISTORY OF PRESENT ILLNESS: Mr. Ny is a very pleasant 77-year-old white gentleman who comes to the hospital for worsening swelling and worsening shortness of breath. He has a history of ischem ic cardiomyopathy. His last EF was on an echo back in January of last year that showed an EF of 50-55%. He is in chronic atrial fibrillation. He has had a history of bleeding and has had a Watchman devic e placed for this. He has what is thought to be cardiac cirrhosis, and chronic kidney disease from c ardiorenal syndrome, so he has been on several diuretic regimens for this. He comes in with worsenin g edema, worsening leg pain and erythema in his right leg as well. PAST MEDICAL HISTORY: 1. History of diastolic heart failure. 2. Chronic atrial fibrillation. 3. Gout. 4. Chronic obstructive pulmonary disease. 5. Gastrointestinal bleeding in the past. 6. Coronary artery disease, status post bypass in the distant past. 7. What is felt to be cardiac cirrhosis. 8. Chronic kidney disease stage 4. 9. Chronic normocytic anemia, probably from chronic kidney disease. 10. History of anasarca. 11. Type 2 diabetes. 12. Hyperlipidemia. 13. Gastroesophageal reflux disease. 14. Hypertension. 15. Hypothyroidism. 16. Chronic thrombocytopenia. PAST SURGICAL HISTORY: 1. CABG. 2. Right finger amputation. 3. Wrist surgery. 4. Watchman device. OUTPATIENT MEDICATIONS: 1. Tramadol. 2. Spironolactone 100 mg daily. 3. Rosuvastatin 10 mg a day. 4. Omeprazole 40 mg daily. 5. Nitroglycerin p.r.n. 6. Multivitamin. 7. Zaroxolyn 2.5 mg as needed. 8. Levothyroxine 50 mcg a day. 9. Imdur 30 mg daily. 10. Novolin 70/30 sliding scale. 11. Colchicine. 12. Calcitriol. 13. Bumex 1 mg daily. 14. Budesonide nebs. 15. Tessalon Perles. 16. Aspirin 81 daily. 17. Vitamin C. 18. Brovana. 19. Allopurinol. 20. Albuterol nebs. ALLERGIES: 1. ATORVASTATIN. 2. SIMVASTATIN. 3. CODEINE. 4. FUROSEMIDE. SOCIAL HISTORY: No alcohol, tobacco or drugs. FAMILY HISTORY: Noncontributory for current admission. REVIEW OF SYSTEMS: A 12-point review of systems is done, it is all negative unless stated in the his tory of present illness. PHYSICAL EXAMINATION: VITAL SIGNS: Temperature 98.1, pulse 120, respiration rate 28, satting 94% on 2 liters, blood pressu re 92/60. GENERAL: Awake, alert, oriented x3. HEENT: Normocephalic, atraumatic. NECK: Supple. LUNGS: No breath sounds on the right lung base, almost 2/[address], left base has inspiratory crackles and prolonged inspiratory phase. CARDIOVASCULAR: S1, S2, no S3, irregular, irregular. Grade 3/6 systolic murmur at the left sternal border. ABDOMEN: Abdomen has increased girth with positive ascitic weight. EXTREMITIES: 3+ edema and erythema in the right lower extremity with warmth, minimal pain. SKIN: Warm on the right leg and erythematous. LABORATORY WORK: Laboratory work was reviewed, shows a white count of 13, hemoglobin 9.8, hematocrit 30, platelet count 151. Chemistry; sodium 140, potassium 4.5, BUN of 163, creatinine of 7.18 which is above his baseline of 3, the rest of LFTs are unremarkable. CK-MB of 4.8. Troponin I was 0.28 an d then 0.36. BNP of 1590, albumin of 3.5. Chest x-ray was reviewed and shows large right-sided pleural effusion. Lower extremity venogram shows no evidence of DVT. ASSESSMENT AND PLAN: 1. Acute on chronic diastolic heart failure. 2. Chronic atrial fibrillation, currently in rapid ventricular response. 3. Left ventricular function of 50-55% on last evaluation. 4. Large right pleural effusion. 5. Possible right lower extremity cellulitis. PLAN: 1. Continue diltiazem for now for rate control; however, probably need some of this rate at the time given his acute illness. We will try to keep the heart rate less than 110. Cannot use digoxin give n kidney dysfunction. Would try to stay away from amiodarone given his liver dysfunction. 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 2. Thank you for letting me participate in the care of your patient. We will follow.
[2017-09-16 13:26] LABS: INR-International Normal Ratio 1.7; Prothrombin Time 20.8 SEC (12.0-14.7)
[2017-09-16] MEDS ORDERED: Sodium Chloride 0.9% 500 ML IVPB SCH (15:30)
[2017-09-16] MEDS: Ascorbic Acid 500 mg Chewable Tablet PO SCH (18:16)
[2017-09-16] MEDS: Allopurinol 100 MG TAB PO SCH (18:16)
[2017-09-16] MEDS: Famotidine 20 MG TAB PO SCH (18:18)
[2017-09-16] MEDS: Calcitriol 0.25 MCG CAP PO SCH (18:18)
[2017-09-16] MEDS: Multivit, Therapeutic 1 TAB PO SCH ×2 (18:18→20:55)
[2017-09-16] MEDS: Albumin 25% 25 GM/100 ML BOT IVPB SCH ×2 (18:19→18:35)
[2017-09-16] MEDS: cefTRIAXone\\ROCEPHIN 1 GM, Syringe 0.4 ML in Sterile Water 9.6 ML SLOW IVP SCH (18:19)
[2017-09-16] MEDS: Arformoterol 15 MCG/2 ML NEB NEB SCH (19:29)
[2017-09-16] MEDS: Budesonide 0.25 MG/2 ML NEB NEB SCH (19:31)
[2017-09-17] MEDS: Albumin 25% 25 GM/100 ML BOT IVPB SCH ×3 (01:58→17:33)
[2017-09-17 05:10] LABS: #Lymphocytes 0.6 thou/uL (1.20-3.40); #Monocytes 0.7 thou/uL (0.11-0.59); #Neutrophils 11.1 thou/uL (1.40-6.50); %Basophils 0.2 % (0.0-1.0); %Eosinophils 0.4 % (0.0-10.0); %Monocytes 5.6 % (0.0-10.0); %Neutrophils 88.8 % (42.0-75.0); Hemoglobin 8.8 g/dL (14.0-18.0); Mean Corpuscular HGB CONC 30.8 g/dL (32.0-36.0); Mean Corpuscular Hemoglobin 31.4 pg (27.0-31.0); Mean Platelet Volume 9.1 fL (7.4-10.4); Platelet Count 124 thou/uL (130-400); RBC Distribution Width 17.6 % (11.5-14.5); Red Blood Cell (RBC) Count 2.81 mill/uL (4.70-6.10); White Blood Cell (WBC) Count 12.5 thou/uL (4.8-10.8)
[2017-09-17 05:21] LABS: Anion Gap 23 mmol/L (10-20); Calc. Creatinine Clearance 11 mL/min (70-130); Calcium 8.5 mg/dL (7.8-10.44); Carbon Dioxide 18 mmol/L (23-31); Chloride 100 mmol/L (98-107); Estimated GFR-MDRD 7; Glucose 141 mg/dL (83-110); Potassium 4.3 mmol/L (3.5-5.1); Sodium 137 mmol/L (136-145)
[2017-09-17 05:34] LABS: BUN (Urea Nitrogen) 152 mg/dL (8.4-25.7)
[2017-09-17] MEDS: Levothyroxine Sodium 50 MCG TAB PO SCH (05:40)
[2017-09-17] MEDS: Allopurinol 100 MG TAB PO SCH (08:29)
[2017-09-17] MEDS: Multivit, Therapeutic 1 TAB PO SCH ×2 (08:30→20:54)
[2017-09-17] MEDS: Ascorbic Acid 500 mg Chewable Tablet PO SCH (08:30)
[2017-09-17] MEDS: Famotidine 20 MG TAB PO SCH (08:31)
[2017-09-17] MEDS: Calcitriol 0.25 MCG CAP PO SCH (08:32)
[2017-09-17] MEDS: Amiodarone HCl 450 MG in Dextrose 5% in Water 250 ML IVPB SCH ×2 (08:34)
[2017-09-17] MEDS: Arformoterol 15 MCG/2 ML NEB NEB SCH ×2 (08:54→18:53)
[2017-09-17] MEDS: Budesonide 0.25 MG/2 ML NEB NEB SCH ×2 (08:55→18:53)
--- NOTE | 2017-09-17 10:34 | PRG ---
DATE OF SERVICE: 09/17/2017 RENAL MEDICINE SUBJECTIVE: Mr. Ny is a 77-year-old white male with COPD/CHF and was seen by the Renal Servi ce for his acute kidney injury on top of his chronic renal failure. I have discontinued all diuretic s. He is currently receiving salt poor albumin. Consult with Urology was done for thoracentesis due to worsening pleural effusion. They were a bit hesitant to proceed with this due to the possibility that he may develop atelectasis/pneumothorax as the lungs might not reexpand at all due to the chron icity of the lesion. However, chest x-ray showed worsening pleural effusion. We will attempt to con sult Pulmonary Medicine to get second opinion. The patient is still complaining of some shortness of breath. OBJECTIVE: VITAL SIGNS: Blood pressure is 91/60, heart rate 92, respiratory rate 18, pulse ox 92%. GENERAL: Awake, supine, not in overt distress. SKIN: Adequate turgor. HEENT: Pale conjunctivae, anicteric sclerae. NECK: No neck mass, no carotid bruits, no JVD. CHEST: No deformities. LUNGS: Decreased breath sounds. HEART: Normal sinus rhythm. No murmur, no gallops, no rubs. ABDOMEN: Globular, soft, nontender. EXTREMITIES: No edema. MEDICATIONS: Medications of 09/17/2017 was reviewed. LABORATORY DATA: Laboratories of 09/17/2017; white count 12.5, hemoglobin 8.8, sodium 137, potassium 4.3, chloride 100, carbon dioxide 18, BUN 152, creatinine 7.35. ASSESSMENT AND PLAN: 1. Acute kidney injury on top of chronic renal failure. I suspect this is superimposed prerenal azo temia. I have discontinued all diuretics. In addition, salt poor albumin 25 grams IV q.6 was starte d. Again, I have not ruled out in starting normal saline. Awaiting pulmonary consult for possible? thoracentesis. Patient is complaining of shortness of breath. No indication for any acute dialytic intervention at the present time. However, I have discussed at length with the patient and his daugh ter about the possibility of dialysis. 2. Congestive heart failure - diuretics on hold due to the worsening renal dysfunction. 3. Pleural effusion - as previously mentioned, a pulmonary consult has been done. Agree with conservative management.
--- NOTE | 2017-09-17 11:48 | PDOC.CTH ---
Cardiology Progress Note - Subjective No new issues. - Objective Vital Signs Temp Pulse Pulse Pulse Pulse Pulse Pulse 09/17/17 10:30 97 104 H 83 117 H 104 H 09/17/17 08:57 09/17/17 08:54 92 09/17/17 08:00 98 F 92 09/17/17 06:00 98 09/17/17 05:00 97.6 F 87 09/17/17 00:00 97.7 F 78 Resp BP BP BP BP BP BP 09/17/17 10:30 84/57 L 88/57 L 97/56 L 88/47 L 95/62 09/17/17 08:57 09/17/17 08:54 18 09/17/17 08:00 18 91/60 09/17/17 06:00 20 102/59 L 09/17/17 05:00 20 91/56 L 09/17/17 00:00 20 90/56 L Pulse Ox Pulse Ox Pulse Ox Pulse Ox Pulse Ox Pulse Ox 09/17/17 10:30 91 L 92 L 92 L 93 L 88 L 09/17/17 08:57 92 L 09/17/17 08:54 2 L 09/17/17 08:00 94 L 09/17/17 06:00 94 L 09/17/17 05:00 93 L 09/17/17 00:00 95 Weight 210 lb 9.6 oz 09/16/17 09/17/17 09/18/17 06:59 06:59 06:59 Intake Total 505 Output Total 100 Balance 405 - Physical Examination General/Neuro: alert & oriented x3 Neck: no JVD present Lungs: CTA, unlabored respirations Heart: RRR Abdomen: NT/ND Extremities: other: (no edema.) - Telemetry Telemetry Rhythm: Afib HR 90-110 - Labs Result Diagrams: 09/17/17 04:17 09/17/17 04:17 Troponin/CKMB CK-MB (CK-2) 4.8 ng/mL (0-6.6) 09/16/17 04:12 Troponin I 0.369 ng/mL (< 0.028) H* 09/16/17 07:21 - Assessment/Plan 1. Chronic afib, now in RVR. 2. Liver cirrhosis. 3. Large right pleural effusion 4. Right lower extremity cellulitis. 5. Acute on chronic renal insufficiency 6. CKD stage 5 PLAN: - Had to switch his diltiazem drip to amiodarone as his BP was starting to come down. - Better rate controlled now, continue drip at current rate. - Agree with albumin.
[2017-09-17] MEDS: cefTRIAXone\\ROCEPHIN 1 GM, Syringe 0.4 ML in Sterile Water 9.6 ML SLOW IVP SCH (12:40)
--- NOTE | 2017-09-17 18:30 | PDOC.PN ---
- Subjective Encounter Start Date: 09/17/17 Encounter Start Time: 13:00 Subjective: Patient with worsened SOB today, on oxygen. Abdomen not really any larger -: than baseline. - Objective Resuscitation Status: Resuscitation Status DNI:No Intubation MAR Reviewed: Yes Vital Signs & Weight: Vital Signs (12 hours) Temp Pulse Pulse Pulse Pulse Pulse Pulse 09/17/17 16:00 97.6 F 99 09/17/17 11:46 97.9 F 104 H 09/17/17 10:30 97 104 H 83 117 H 104 H 09/17/17 08:57 09/17/17 08:54 92 09/17/17 08:00 98 F 92 Resp BP BP BP BP BP BP 09/17/17 16:00 20 96/67 09/17/17 11:46 18 95/62 09/17/17 10:30 84/57 L 88/57 L 97/56 L 88/47 L 95/62 09/17/17 08:57 09/17/17 08:54 18 09/17/17 08:00 18 91/60 Pulse Ox Pulse Ox Pulse Ox Pulse Ox Pulse Ox Pulse Ox 09/17/17 16:00 96 09/17/17 11:46 96 09/17/17 10:30 91 L 92 L 92 L 93 L 88 L 09/17/17 08:57 92 L 09/17/17 08:54 2 L 09/17/17 08:00 94 L Weight Admit Weight 210 lb Weight 210 lb 9.6 oz I&O: 09/16/17 09/17/17 09/18/17 06:59 06:59 06:59 Intake Total 505 Output Total 100 Balance 405 Result Diagrams: 09/17/17 04:17 09/17/17 04:17 Additional Labs: Accuchecks 09/17/17 09/17/17 09/17/17 17:15 11:52 06:10 POC Glucose 196 H 145 H 137 H 09/16/17 20:53 POC Glucose 140 H Phys Exam - Physical Examination mild increased WOB, better when sitting up HEENT: moist MMs decrease breath sounds right lung up to midlung Cardiovascular: RRR Gastrointestinal: soft, positive bowel sounds distended, not tense or tender chronic edema, redness on right medial thigh maybe a little bit better Neurological: non-focal Psychiatric: normal affect, A&O x 3 Dx/Plan (1) Cellulitis Code(s): L03.90 - CELLULITIS, UNSPECIFIED Status: Acute Qualifiers: Site of cellulitis: extremity Site of cellulitis of extremity: lower extremity Laterality: right Qualified Code(s): L03.115 - Cellulitis of right lower limb Comment: on Rocephin, improving (2) Pleural effusion Code(s): J90 - PLEURAL EFFUSION, NOT ELSEWHERE CLASSIFIED Status: Chronic Comment: Worsening right pleural effusion, Dr. De La Paz consulted to consider thoracentesis (3) Acute worsening of stage 4 chronic kidney disease Code(s): N28.9 - DISORDER OF KIDNEY AND URETER, UNSPECIFIED; N18.4 - CHRONIC KIDNEY DISEASE, STAGE 4 (SEVERE) Status: Acute Comment: Creatinine not improving with albumin and minimal UOP today, may need dialysis (4) Anasarca Code(s): R60.1 - GENERALIZED EDEMA Status: Chronic (5) Ascites Code(s): R18.8 - OTHER ASCITES Status: Chronic Qualifiers: Ascites type: other type Qualified Code(s): R18.8 - Other ascites Comment: cardiac cirrhosis (6) CHF (congestive heart failure) Code(s): I50.9 - HEART FAILURE, UNSPECIFIED Status: Acute Qualifiers: Congestive heart failure type: systolic Congestive heart failure chronicity : acute on chronic Qualified Code(s): I50.23 - Acute on chronic systolic ( congestive) heart failure (7) CAD (coronary artery disease) Code(s): I25.10 - ATHSCL HEART DISEASE OF [place] CORONARY ARTERY W/O ANG PCTRS Status: Chronic (8) COPD (chronic obstructive pulmonary disease) Status: Chronic (9) Diabetes type 2, controlled Code(s): E11.9 - TYPE 2 DIABETES MELLITUS WITHOUT COMPLICATIONS Status: Chronic Qualifiers: Diabetes mellitus complication status: with kidney complications Diabetes mellitus complication detail: with chronic kidney disease Diabetes mellitus vermin exterminator insulin use: without alf use Chronic kidney disease stage: stage 4 (severe) Qualified Code(s): E11.22 - Type 2 diabetes mellitus with diabetic chronic kidney disease; N18.4 - Chronic kidney disease, stage 4 (severe ); N18.4 - Chronic kidney disease, stage 4 (severe); N18.4 - Chronic kidney disease, stage 4 (severe); N18.4 - Chronic kidney disease, stage 4 (severe) (10) Dyslipidemia Code(s): E78.5 - HYPERLIPIDEMIA, UNSPECIFIED Status: Chronic - Plan cont current plan of care, continue antibiotics * . - Discharge Day Encounter end time: 13:30
[2017-09-17 18:43] LABS: pH, Arterial 7.36 (7.35-7.45)
--- NOTE | 2017-09-17 19:49 | CON ---
DATE OF CONSULTATION: 09/17/2017 SERVICE: Pulmonary Medicine. REASON FOR CONSULTATION: Pleural effusion. HISTORY OF PRESENT ILLNESS: The patient is a 77-year-old white male with significant history of heart disease, liver disease, and kidney disease. He is having increasing problems with volume. He underwent a paracentesis a couple of weeks ago for the first time. This seemed to improve some of his abdominal swelling and difficulty with breathing, but this time around, he presented to the hospital yesterday with increasing dyspnea, leg pain, and palpitations. He denies any fevers, chills, nausea or vomiting. He was found to be hypoxemic and never previously required oxygen. Either way, he has significant ascites as well as a pleural effusion, on the right. He has never had a thoracentesis performed before. PAST MEDICAL HISTORY: 1. Chronic systolic heart failure. 2. Cirrhosis. 3. Chronic kidney disease, stage 4. 4. Coronary artery disease. 5. Chronic obstructive pulmonary disease. 6. Type 2 diabetes mellitus. 7. Dyslipidemia. 8. Gastroesophageal reflux disease. 9. Hypertension. 10. Hypothyroidism. 11. Thrombocytopenia. PAST SURGICAL HISTORY: 1. Coronary artery bypass graft. 2. Right finger amputation. 3. Wrist surgery. 4. Watchman procedure. FAMILY HISTORY: Noncontributory. SOCIAL HISTORY: Negative for alcohol, tobacco or illicit drug use presently. Apparently, he has a history of some alcohol use. He is cared for by his daughter and son. 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 ALLERGIES: ATORVASTATIN, SIMVASTATIN, CODEINE, FUROSEMIDE. MEDICATIONS: List of his inpatient medications were reviewed. No updates were made at this time. REVIEW OF SYSTEMS: General, head, ears, eyes, nose, throat, cardiovascular, respiratory, GI, , musculoskeletal, neurologic and skin is negative except as mentioned in the HPI. PHYSICAL EXAMINATION: VITAL SIGNS: Afebrile, pulse 99, blood pressure 96/67, respirations 20, saturation 96% on 3.5 liters nasal cannula. GENERAL: The patient is awake and alert. He is a little somnolent, but easy to wake up and arouse. He answers all questions fully and does appreciate his circumstances. HEENT: Normocephalic, atraumatic. Sclerae yellow. Conjunctivae pink. Oral mucosa is moist without lesions. LUNGS: Decent air entry on the left. There is no prolonged expiratory phase or wheezing. There is reduced air entry on the right. Dullness is present to percussion. HEART: Tachycardic. Regular. ABDOMEN: Distended with ascites. Bowel sounds are present. He is otherwise nontender. There is no rebound or guarding. : No Nieto catheter. NEUROLOGIC: Grossly nonfocal. MUSCULOSKELETAL: No cyanosis or clubbing. There is trace to 1+ pitting in the bilateral lower extremities. LABORATORY DATA: WBC 12.5 and down trending, hemoglobin 8.8, platelets 124, 000. INR 1.7. Pleural fluid pH of 7.36. Creatinine 7.35 and gently up trending, BUN 152. Basic metabolic profile is otherwise unremarkable. Blood cultures x2 are unremarkable. IMAGIN. Ultrasound of the bilateral lower extremities demonstrates no evidence of DVT. Soft tissue edema is evident. 2. Chest x-ray demonstrates large right-sided pleural effusion. This is getting larger. There is evidence of prior sternotomy possibly x2. Clips are present in the right hilar and/or mediastinal region as well as left border of the heart. Interstitial fullness is present in the left lung. ASSESSMENT: 1. Acute on chronic diastolic heart failure. 2. Acute hypoxic respiratory failure. 3. Acute kidney injury on chronic kidney disease IV, progressing. 4. Atrial fibrillation with rapid ventricular rate. 5. Cirrhosis. 6. Large pleural effusion on the right. PLAN: The patient will need to be diuresed euvolemia. If this is not possible , a dialysis should certainly be considered, but I will leave that to Dr. Leal, discussed with the patient. We will proceed with thoracentesis. 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 His abdomen is distended with ascites. If he continues to have shortness of breath following this procedure, paracentesis should also be considered. Pulmonary will continue to follow for the time being. 70 minutes have been devoted to this patient in various activities. For at least half of this time, I was at the bedside in direct patient interaction or coordinating care with the care team. For the remainder of the time I was immediately available to the patient in the hospital unit. MAVERICK
[2017-09-18] MEDS: Amiodarone HCl 450 MG in Dextrose 5% in Water 250 ML IVPB SCH ×2 (01:29)
[2017-09-18 01:34] LABS: Pleural Fluid, Protein 2.8 g/dL
[2017-09-18] MEDS: Albumin 25% 25 GM/100 ML BOT IVPB SCH ×2 (02:22→10:08)
[2017-09-18 02:26] LABS: BF Color Yellow; Body Fluid Source PLEURAL FLUID; Clarity Hazy (Clear); RBC Background Count 0.001; Tube # EDTA
[2017-09-18 02:27] LABS: RBC Count-Automated 11000 /cumm
[2017-09-18 02:30] LABS: BF WBC/Nonhematics Ct. - Manua 48 /cumm
[2017-09-18 02:33] LABS: BF Segmented Neutrophils 31 %; Cell Count Non Hematic 69 %
[2017-09-18] MEDS: Levothyroxine Sodium 50 MCG TAB PO SCH (05:51)
[2017-09-18] MEDS: Budesonide 0.25 MG/2 ML NEB NEB SCH ×2 (06:34→19:08)
[2017-09-18] MEDS: Arformoterol 15 MCG/2 ML NEB NEB SCH ×2 (07:25→20:36)
[2017-09-18] MEDS: Allopurinol 100 MG TAB PO SCH (08:14)
[2017-09-18] MEDS: Multivit, Therapeutic 1 TAB PO SCH ×2 (08:15→21:08)
[2017-09-18] MEDS: Famotidine 20 MG TAB PO SCH (08:15)
[2017-09-18] MEDS: Ascorbic Acid 500 mg Chewable Tablet PO SCH (08:15)
[2017-09-18] MEDS: Calcitriol 0.25 MCG CAP PO SCH (08:15)
--- NOTE | 2017-09-18 09:56 | PRG ---
DATE OF SERVICE: 09/18/2017 SUBJECTIVE: Mr. Ny is a 77-year-old white male who was admitted for shortness of breath. Y esterday, he underwent thoracentesis - about 1-1.5 liters of fluid was removed. He had some improvem ent with his shortness of breath. However, his renal function remains unchanged. PHYSICAL EXAMINATION: VITAL SIGNS: Blood pressure is 94/64, heart rate 95, respiratory rate 22, temperature 97.5, pulse ox 94%. GENERAL: Noted to be awake, supine, comfortable, obese, not in overt distress. SKIN: Adequate turgor. HEENT: Slightly pale conjunctivae, anicteric sclerae. NECK: No neck mass, no carotid bruits, no JVD. CHEST: No deformities. LUNGS: Decreased breath sounds. HEART: Normal sinus rhythm. No murmurs, gallops or rubs. ABDOMEN: Globular, soft, nontender. No masses. EXTREMITIES: Positive for edema. MEDICATIONS: Medications of 09/18/2017 was reviewed. LABORATORY DATA: Laboratories of 09/17/2017; hemoglobin 8.8, sodium is 137, potassium 4.3, chloride 100, carbon dioxide 18, BUN 152, creatinine 7.35. ASSESSMENT AND PLAN: 1. Acute kidney injury/chronic renal failure, relatively unimproved renal function. My bias is to i nitiate dialysis. However, this patient has severe comorbid problems and I do not think he will real ly be a good dialysis candidate. Please note he has a history of decreased ejection fraction/congest pawel heart failure, lung problem and has been failing to thrive in the last several weeks. I did offe r them to consider hospice. The patient and the family will try to decide and talk about it. For th e moment, hold off any dialytic intervention. 2. Shortness of breath, much improved with thoracentesis. Again, about 1.5 liters of fluid was mich delfino. There was some clinical improvement. Overall, prognosis remains poor. I will reevaluate the patient in a.m.
[2017-09-18] MEDS: cefTRIAXone\\ROCEPHIN 1 GM, Syringe 0.4 ML in Sterile Water 9.6 ML SLOW IVP SCH (12:32)
--- NOTE | 2017-09-18 12:54 | PDOC.PN ---
- Subjective Encounter Start Date: 09/18/17 Encounter Start Time: 13:30 Subjective: Breathing easier after thoracentesis. Would like to try a paracentesis -: as abdomen still pushing up on lungs. - Objective Resuscitation Status: Resuscitation Status DNI:No Intubation MAR Reviewed: Yes Vital Signs & Weight: Vital Signs (12 hours) Temp Pulse Resp BP Pulse Ox 09/18/17 11:36 97.5 F L 112 H 18 86/61 L 94 L 09/18/17 08:00 97.5 F L 95 22 H 94 L 09/18/17 07:00 97.5 F L 95 22 H 94/64 94 L 09/18/17 06:52 94 L 09/18/17 06:34 99 22 H 94 L 09/18/17 04:00 97.3 F L 62 20 84/59 L 97 Weight Admit Weight 210 lb Weight 210 lb 9.6 oz I&O: 09/17/17 09/18/17 09/19/17 06:59 06:59 06:59 Intake Total 505 560 Output Total 100 250 Balance 405 310 Result Diagrams: 09/17/17 04:17 09/17/17 04:17 Additional Labs: Accuchecks 09/18/17 09/18/17 09/17/17 10:41 05:55 20:43 POC Glucose 158 H 203 H 169 H 09/17/17 17:15 POC Glucose 196 H Phys Exam - Physical Examination Constitutional: NAD HEENT: moist MMs decreased breath sounds right base, improved some from yesterday Cardiovascular: no significant murmur, irregular Gastrointestinal: soft, non-tender, positive bowel sounds distended by not tense Neurological: non-focal, moves all 4 limbs Psychiatric: normal affect Deviation from normal: redness on right inner thigh mildly improved Dx/Plan (1) Cellulitis Code(s): L03.90 - CELLULITIS, UNSPECIFIED Status: Acute Qualifiers: Site of cellulitis: extremity Site of cellulitis of extremity: lower extremity Laterality: right Qualified Code(s): L03.115 - Cellulitis of right lower limb Comment: on Rocephin, improving (2) Pleural effusion Code(s): J90 - PLEURAL EFFUSION, NOT ELSEWHERE CLASSIFIED Status: Chronic Comment: S/P thoracentesis on 09/17/17, breathing much easier (3) Acute worsening of stage 4 chronic kidney disease Code(s): N28.9 - DISORDER OF KIDNEY AND URETER, UNSPECIFIED; N18.4 - CHRONIC KIDNEY DISEASE, STAGE 4 (SEVERE) Status: Acute Comment: Creatinine not improving with albumin and minimal UOP today, will need dialysis vs. hospice, family discussing (4) Anasarca Code(s): R60.1 - GENERALIZED EDEMA Status: Chronic (5) Ascites Code(s): R18.8 - OTHER ASCITES Status: Chronic Qualifiers: Ascites type: other type Qualified Code(s): R18.8 - Other ascites Comment: cardiac cirrhosis (6) CHF (congestive heart failure) Code(s): I50.9 - HEART FAILURE, UNSPECIFIED Status: Acute Qualifiers: Congestive heart failure type: systolic Congestive heart failure chronicity : acute on chronic Qualified Code(s): I50.23 - Acute on chronic systolic ( congestive) heart failure (7) CAD (coronary artery disease) Code(s): I25.10 - ATHSCL HEART DISEASE OF [place] CORONARY ARTERY W/O ANG PCTRS Status: Chronic (8) COPD (chronic obstructive pulmonary disease) Status: Chronic (9) Diabetes type 2, controlled Code(s): E11.9 - TYPE 2 DIABETES MELLITUS WITHOUT COMPLICATIONS Status: Chronic Qualifiers: Diabetes mellitus complication status: with kidney complications Diabetes mellitus complication detail: with chronic kidney disease Diabetes 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 hospice. * . - Discharge Day Encounter end time: 14:00
--- NOTE | 2017-09-18 14:33 | OP ---
DATE OF PROCEDURE: 09/17/2017 SERVICE: Pulmonary medicine. PROCEDURE PERFORMED: Right-sided pleural drainage with catheter insertion, under ultrasound guidance. CONSENT: The risks and benefits of this procedure were explained to the patient. All questions were answered and alternate options explained. STAFF PHYSICIAN: Dr. Hal De La Paz. MEDICATIONS: Lidocaine 1% without epinephrine, total quantity 10 mL. PREOPERATIVE DIAGNOSES: 1. Pleural effusion. 2. Ascites. 3. Acute hypoxic respiratory failure. POSTPROCEDURE DIAGNOSES: 1. Pleural effusion. 2. Ascites. 3. Acute hypoxic respiratory failure. DESCRIPTION OF PROCEDURE: A timeout was performed by the procedure team to the patient. The patient was positively identified using name and date of . The procedure site was marked. Vital sign monitoring was accomplished by noninvasive hemodynamic monitoring, pulse oximetry, and telemetry. In the seated position, the right posterior hemithorax was examined using an ultrasound probe. The diaphragm pleural fluid was easily identified. The skin was prepped and draped in usual sterile fashion and anesthetized with 1% lidocaine without epinephrine. A finder needle was inserted in the pleural space with return of tea-colored mostly clear pleural fluid. The pleural drainage catheter was inserted in the same location and a total quantity of 1600 mL of the same fluid was withdrawn by syringe pump technique. Samples sent for analysis. Evacuation of fluid was terminated, because the patient started having increasing discomfort/heaviness in the chest. At the end of the procedure, estimated pleural pressures, measured by manometry, was -20 cm of pleural fluid. The intact catheter was withdrawn on exhalation and sterile dressing was applied. The patient has stable vitals throughout the entire procedure. ESTIMATED BLOOD LOSS: 2 mL COMPLICATIONS: None. MTDD
--- NOTE | 2017-09-18 14:55 | PQF ---
DATE: 09-22-17 ATTN: DR. HALIMA CHU / DR. ZAK HUANG Please exercise your independent, professional judgment in responding to the clarification form. Clinical indicators are provided on the bottom of this form for your review Please check appropriate box(s): [ ] Sepsis [ ] SIRS due to non-infectious process (please specify etiology) [ ] Severe sepsis with acute organ dysfunction of: (Examples: respiratory failure, encephalopathy, acute kidney failure, other) [ ] Other diagnosis [ ] Unable to determine In addition, please specify: Present on Admission (POA): [ ] Yes [ ] No [ ] Unable to determine For continuity of documentation, please document condition throughout progress notes and discharge summary. Thank You. CLINICAL INDICATORS - SIGNS / SYMPTOMS / LABS ER DOCUMENTATION: WEAKNESS, ER BP: 89/56, 83/54, 75/58, 85/52, 82/45, 81/52, 85/45 ER: PULSE: 121, 152, 148, 147, 136, 127, 112 ER: RR: 28, 37, 35, 26, 30, 25, 24 H&P: LEG PAIN WITH REDNESS AND LEUKOCYTOSIS, LIKELY A CELLULITIS FROM BACTERIA ENTERING THE WOUNDS ON HIS LOWER EXTREMITIES PN DR. CHU 09-16-16: ACUTE CELLULITIS CONSULT NOTE DR. NEWELL 09-17-16: ACUTE ON CHRONIC DIASTOLIC HEART FAILURE, MARIZA ON CHRONIC KIDNEY DISEASE 4, PROGRESSING WBC: 09-16-17: 13.8, 12.5 BANDS: 22 RISK FACTORS: H&P: LEG PAIN WITH REDNESS AND LEUKOCYTOSIS , LIKELY A CELLULITIS FROM BACTERIA ENTERING THE WOUNDS ON HIS LOWER EXTREMITIES, HX OF DM 2 ADVANCED AGE TREATMENTS: (09-16-17) ROCEPHIN DAILY CBC (ER) IVF (This form is maintained as a part of the permanent medical record) 2014 [employer]. All Rights Reserved [email or web address] Office: [phone] MAVERICK
--- NOTE | 2017-09-18 15:07 | PQF ---
DATE: 09-22-16 ATTN: DR. HALIMA CHU / DR. ZAK HUANG Please exercise your independent, professional judgment in responding to the clarification form. Clinical indicators are provided on the bottom of this form for your review Please check appropriate box(s): [ ] Chronic Respiratory Failure only [ ] with Hypoxia [ ] with Hypercapnia [ ] Hypoxia [ ] Other diagnosis [ ] Unable to determine In addition, please specify: Present on Admission (POA): [ ] Yes [ ] No [ ] Unable to determine For continuity of documentation, please document condition throughout progress notes and discharge summary. Thank You. CLINICAL INDICATORS - SIGNS / SYMPTOMS / LABS ER DOCUMENTATION: PT IS ON HOME O2 ER DOCUMENTATION: COPD HISTORY CXR 09-16-17: ENLARGING MODERATE RIGHT PLEURAL EFFUSION RT PULSE OX 09-16-16 TO PRESENT: O2 2-3.5 L NC RISK FACTORS: ER DOCUMENTATION: PT IS ON HOME O2 ER DOCUMENTATION: COPD HISTORY, HX OF CHF TREATMENTS:RT PULSE OX 09-16-16 TO PRESENT: O2 2-3.5 L NC PULMONARY CONSULT (This form is maintained as a part of the permanent medical record) 2014 [employer]. All Rights Reserved [email or web address] Office: [phone] [facility]
--- NOTE | 2017-09-18 20:53 | PDOC.CTH ---
Cardiology Progress Note - Subjective BP is borderline low. HR better with amiodarone drip. No new complaints. - Objective Vital Signs Temp Pulse Pulse Pulse Pulse Resp BP 09/18/17 20:17 97.3 F L 110 H 16 09/18/17 19:08 106 H 20 09/18/17 15:38 97.2 F L 103 H 22 H 09/18/17 11:36 97.5 F L 112 H 18 09/18/17 11:12 105 H 119 H 100 97/62 BP BP BP BP Pulse Ox Pulse Ox Pulse Ox 09/18/17 20:17 110/81 96 09/18/17 19:08 96 09/18/17 15:38 94/59 L 94 L 09/18/17 11:36 86/61 L 94 L 09/18/17 11:12 77/54 L 94/63 95 92 L Pulse Ox 09/18/17 20:17 09/18/17 19:08 09/18/17 15:38 09/18/17 11:36 09/18/17 11:12 96 Admit Weight 210 lb Weight 210 lb 9.6 oz 09/17/17 09/18/17 09/19/17 06:59 06:59 06:59 Intake Total 505 560 500 Output Total 100 250 50 Balance 405 310 450 - Physical Examination General/Neuro: NAD Neck: no JVD present Lungs: unlabored respirations Heart: other: (Irreg) Abdomen: other: (distended) Extremities: + edema B (1+) - Telemetry Telemetry Rhythm: Afib HR 90's. - Labs Result Diagrams: 09/17/17 04:17 09/17/17 04:17 Troponin/CKMB CK-MB (CK-2) 4.8 ng/mL (0-6.6) 09/16/17 04:12 Troponin I 0.369 ng/mL (< 0.028) H* 09/16/17 07:21 - Assessment/Plan 1. Chronic afib, now in RVR. 2. Liver cirrhosis. 3. Large right pleural effusion 4. Right lower extremity cellulitis. 5. Acute on chronic renal insufficiency 6. CKD stage 5 PLAN: - Continue amiodarone drip. Likely discontinue tomorrow if he remians rate controlled. - Better rate controlled now, continue drip at current rate.
[2017-09-19 05:28] LABS: #Eosinphils 0.1 thou/uL (0.0-0.7); #Lymphocytes 0.7 thou/uL (1.20-3.40); #Monocytes 0.5 thou/uL (0.11-0.59); #Neutrophils 8.5 thou/uL (1.40-6.50); %Basophils 0.1 % (0.0-1.0); %Eosinophils 0.7 % (0.0-10.0); %Lymphocytes 6.6 % (21.0-51.0); %Monocytes 5.4 % (0.0-10.0); %Neutrophils 87.1 % (42.0-75.0); Hemoglobin 8.9 g/dL (14.0-18.0); Mean Corpuscular HGB CONC 30.9 g/dL (32.0-36.0); Mean Corpuscular Hemoglobin 31.1 pg (27.0-31.0); Mean Platelet Volume 8.8 fL (7.4-10.4); Platelet Count 133 thou/uL (130-400); Red Blood Cell (RBC) Count 2.85 mill/uL (4.70-6.10); White Blood Cell (WBC) Count 9.8 thou/uL (4.8-10.8)
[2017-09-19 05:47] LABS: Anion Gap 25 mmol/L (10-20); Calc. Creatinine Clearance 10 mL/min (70-130); Calcium 8.7 mg/dL (7.8-10.44); Carbon Dioxide 18 mmol/L (23-31); Chloride 96 mmol/L (98-107); Estimated GFR-MDRD 6; Glucose 127 mg/dL (83-110); Potassium 4.8 mmol/L (3.5-5.1); Sodium 134 mmol/L (136-145)
--- NOTE | 2017-09-19 05:53 | PRG ---
DATE OF SERVICE: 09/18/2017 SERVICE: Pulmonary Medicine. INTERVAL HISTORY: The patient is doing really quite well from a breathing standpoint. He got good r est yesterday evening. That being said, as the day went on, his work of breath started getting a lit tle worse. He is back on oxygen, but otherwise, there has been no interval change to his condition. There were no fever or overnight events otherwise. He had multiple discussions today with several p hysicians. Ultimately, he is thinking about initiating dialysis to see whether or not this provides him with any benefit. If it does, he will continue it. If it does not, he may consider transitionin g over to comfort care only, either way. PHYSICAL EXAMINATION: VITAL SIGNS: Afebrile, pulse 110, blood pressure 110/81, respirations 16 and saturation 96% on 3 lit ers nasal cannula. GENERAL: Patient is awake and alert, in no apparent distress. LUNGS: Improved air entry in the right lung. There is no prolonged expiratory phase. Crackles are present. No rhonchi. HEART: Normal rate, regular. ABDOMEN: Tense with ascites and distended. No rebound or guarding. Bowel sounds are present. MUSCULOSKELETAL: No cyanosis or clubbing. Diffuse edema is present. GENITOURINARY: No Nieto catheter. NEUROLOGIC: Grossly nonfocal. LABORATORY DATA: WBC 12.5, hemoglobin 8.8 and platelets 124,000. Neutrophils are 88%. Blood sugars ranged from 143-203. LDH 147, total protein 2.8 . Glucose 143. Cultures are all negative to date. Cytology is currently pending. ASSESSMENT: 1. Acute hypoxic respiratory failure. 2. Hepatic hydrothorax, status post thoracentesis x1, demonstrating a clear transudate. 3. Acute kidney injury on chronic kidney disease IV, progressing. 4. Anasarca secondary to chronic kidney disease. 5. Liver dysfunction secondary to hepatic congestion. 6. Atrial fibrillation with rapid ventricular response. 7. Acute on chronic diastolic heart failure secondary to volume overload. PLAN: The patient is trying to decide whether or not to pursue dialysis. I do think it would be lakshmi sonable to give it an attempt to see whether or not getting adequate control of this volume can in so me way improve liver function. Pulmonary Critical Care will continue to follow while he remains in t his location, but from my perspective, he is stable for transition to the floor. That being said, he has increasing risk of respiratory failure because of increasing abdominal distention. If we can ge t off fluid through dialysis, paracentesis needs to be considered.
[2017-09-19 05:58] LABS: BUN (Urea Nitrogen) 171 mg/dL (8.4-25.7)
[2017-09-19] MEDS: Levothyroxine Sodium 50 MCG TAB PO SCH (06:32)
[2017-09-19] MEDS: Multivit, Therapeutic 1 TAB PO SCH ×2 (08:53→20:19)
[2017-09-19] MEDS: Calcitriol 0.25 MCG CAP PO SCH (08:53)
[2017-09-19] MEDS: Famotidine 20 MG TAB PO SCH (08:53)
[2017-09-19] MEDS: Allopurinol 100 MG TAB PO SCH (08:53)
[2017-09-19] MEDS: Ascorbic Acid 500 mg Chewable Tablet PO SCH (08:53)
[2017-09-19] MEDS: Ondansetron ODT 4 MG TAB PO PRN (08:57)
[2017-09-19] MEDS: Amiodarone HCl 450 MG in Dextrose 5% in Water 250 ML IVPB SCH ×2 (09:00)
[2017-09-19] MEDS: Budesonide 0.25 MG/2 ML NEB NEB SCH ×2 (09:02→19:03)
[2017-09-19] MEDS: Arformoterol 15 MCG/2 ML NEB NEB SCH ×2 (09:02→19:04)
--- NOTE | 2017-09-19 10:47 | PRG ---
DATE OF SERVICE: 09/19/2017 SUBJECTIVE: Mr. Ny is a 77-year-old white male with history of CHF, chronic renal failure an d admitted for shortness of breath. In the interim he has undergone 1.5 liter fluid thoracentesis wi th slight improvement in the renal function. He still feels a bit short of breath. I had a long discussion about dialysis and hospice with this patient. A Palliative Care consultation was done. The patient voices his wish that he would like to try dialysis first. I did explain to h im that dialysis will only address his renal problem. He was made aware that he can discontinue this dialysis at any time. Also, initial discussion with the daughter and the daughter states that hers father wishes to proceed with dialysis. PHYSICAL EXAMINATION: VITAL SIGNS: Blood pressure is 101/60, heart rate 99, respiratory rate 20, temperature 96.3, pulse o x 94%. GENERAL: Noted to be awake, sitting, in mild respiratory distress. SKIN: Adequate turgor. HEENT: He has slightly pale conjunctivae, anicteric sclerae. NECK: No neck mass, no carotid bruits, no JVD. CHEST: No deformities. LUNGS: Decreased breath sounds. HEART: Normal sinus rhythm. He has a grade 2/6 systolic murmur, no gallops or rubs. ABDOMEN: Globular, soft, nontender. EXTREMITIES: Positive for edema. MEDICATIONS: 09/19/2017 - Reviewed. LABORATORY: 09/19/2017 - White count 9.8, hemoglobin 8.9. Sodium 134, potassium 4.8, carbon dioxide 18, BUN 171, creatinine 8.53, GFR 16 mL per minute, glucose 127, calcium 8.7. ASSESSMENT AND PLAN: 1. Acute kidney injury on top of his chronic renal failure, worsening renal dysfunction. GFR is now up to 6 mL per minute. We will proceed with dialysis as per request by the patient. We will consul t Surgery for a cuffed hemodialysis catheter placement. If tunneled catheter could not be placed we will consider a temporary femoral right dialysis catheter. Fluid removal only as tolerated by the conrad arguello. 2. Shortness of breath, multifactorial etiology - congestive heart failure and chronic obstructive p ulmonary disease. His overall prognosis remains guarded.
[2017-09-19] MEDS ORDERED: Tuberculin PPD 0.1 ML VIAL I-DERMAL SCH (11:00)
[2017-09-19] MEDS: cefTRIAXone\\ROCEPHIN 1 GM, Syringe 0.4 ML in Sterile Water 9.6 ML SLOW IVP SCH (11:24)
--- NOTE | 2017-09-19 12:13 | PDOC.PN ---
- Subjective Encounter Start Date: 09/19/17 Encounter Start Time: 12:11 Subjective: seen and examined still looking bad - Objective Resuscitation Status: Resuscitation Status DNI:No Intubation Vital Signs & Weight: Vital Signs (12 hours) Temp Pulse Resp BP Pulse Ox 09/19/17 11:33 96.1 F L 87 20 100/64 92 L 09/19/17 09:04 93 L 09/19/17 09:02 98 16 09/19/17 08:00 98.3 F 98 16 93 L 09/19/17 07:57 96.3 F L 99 20 101/60 94 L 09/19/17 04:00 97.3 F L 94 20 103/67 93 L 09/19/17 01:33 92 L 09/19/17 00:32 97.4 F L 94 16 96/61 95 Weight Admit Weight 202 lb 6.4 oz Weight 212 lb 11.2 oz I&O: 09/18/17 09/19/17 09/20/17 06:59 06:59 06:59 Intake Total 560 1300.4 Output Total 250 100 Balance 310 1200.4 Result Diagrams: 09/19/17 04:56 09/19/17 04:56 Additional Labs: Accuchecks 09/19/17 09/19/17 09/18/17 11:50 06:46 20:45 POC Glucose 123 H 151 H 171 H 09/18/17 16:30 POC Glucose 143 H Phys Exam - Physical Examination Constitutional: NAD HEENT: PERRLA, moist MMs, sclera anicteric, TM's clear Neck: no nodes, no JVD, supple, full ROM Respiratory: no wheezing, no rales, no rhonchi, clear to auscultation bilateral Cardiovascular: RRR, no significant murmur, no rub Gastrointestinal: soft, positive bowel sounds distended Musculoskeletal: pulses present, edema present Neurological: non-focal, normal sensation, moves all 4 limbs Dx/Plan (1) Acute worsening of stage 4 chronic kidney disease Code(s): N28.9 - DISORDER OF KIDNEY AND URETER, UNSPECIFIED; N18.4 - CHRONIC KIDNEY DISEASE, STAGE 4 (SEVERE) Status: Acute Comment: Creatinine not improving with albumin and minimal UOP today, will need dialysis vs. hospice, family discussing (2) CHF (congestive heart failure) Code(s): I50.9 - HEART FAILURE, UNSPECIFIED Status: Acute Qualifiers: Congestive heart failure type: systolic Congestive heart failure chronicity : acute on chronic Qualified Code(s): I50.23 - Acute on chronic systolic ( congestive) heart failure (3) Anasarca Code(s): R60.1 - GENERALIZED EDEMA Status: Chronic (4) Anemia, normocytic normochromic Code(s): D64.9 - ANEMIA, UNSPECIFIED Status: Chronic Comment: anemia of chronic renal failure (5) Ascites Code(s): R18.8 - OTHER ASCITES Status: Chronic Qualifiers: Ascites type: other type Qualified Code(s): R18.8 - Other ascites Comment: cardiac cirrhosis (6) CAD (coronary artery disease) Code(s): I25.10 - ATHSCL HEART DISEASE OF [place] CORONARY ARTERY W/O ANG PCTRS Status: Chronic (7) Cirrhosis, cardiac Code(s): K76.1 - CHRONIC PASSIVE CONGESTION OF LIVER Status: Chronic (8) Diabetes type 2, controlled Code(s): E11.9 - TYPE 2 DIABETES MELLITUS WITHOUT COMPLICATIONS Status: Chronic Qualifiers: Diabetes mellitus complication status: with kidney complications Diabetes mellitus complication detail: with chronic kidney disease Diabetes mellitus nursing home insulin use: without long term care phlebotomist use Chronic kidney disease stage: stage 4 (severe) Qualified Code(s): E11.22 - Type 2 diabetes mellitus with diabetic chronic kidney disease; N18.4 - Chronic kidney disease, stage 4 (severe ); N18.4 - Chronic kidney disease, stage 4 (severe); N18.4 - Chronic kidney disease, stage 4 (severe); N18.4 - Chronic kidney disease, stage 4 (severe) (9) Dyslipidemia Code(s): E78.5 - HYPERLIPIDEMIA, UNSPECIFIED Status: Chronic - Plan plan discussed w/ family, PT/OT, social organization professor, respiratory therapy Possible initiation on dialysis --defer to the Renal physician -: Prognosis not good * .
[2017-09-19 12:20] LABS: HBSAg Index 0.88 S/CO (0-0.99); Hep B Surf Ag Non-Reactive S/CO (NonReactive)
[2017-09-19] MEDS ORDERED: Heparin 10,000 UNITS/1 ML VIAL ONE (13:13)
[2017-09-19] MEDS ORDERED: Lidocaine 2% PF 5 ML VIAL ONE ×2 (13:13→14:28)
[2017-09-19] MEDS ORDERED: Sodium Chloride 0.9% 0 ML ONE (13:13)
[2017-09-19] MEDS ORDERED: Bupivacaine/Epinephrine 0.25% 30 ML VIAL ONE ×2 (13:13→14:28)
--- NOTE | 2017-09-19 13:48 | HP ---
HISTORY OF PRESENT ILLNESS: A 77-year-old male with end-stage renal disease, initially chose hospice , but decided to try dialysis to see if it would make him feel better. The patient lives in [place] with his daughter. He has ascites, end-stage liver disease with cirrhosis, followed by Dr. Schaeffer as a n outpatient. He has a history of atrial fibrillation, diastolic dysfunction, history of coronary ar jose luis disease, atrial fibrillation, COPD, and now end-stage renal disease with past history of CKD. T he patient did not have a prior history of hepatitis or liver disease. He last saw Dr. Schaeffer in 2010 at which time he had an EGD with duodenal AVM and colonoscopy in 2008, diverticulosis. CAT scan ches t noted a nodular appearance of the liver and ascites. No history of alcohol abuse, but has a histor y of alcohol consumption in the past. He was seen by GI in June. On this occasion, he was admitt ed for dyspnea and ascites. In June 2017, hepatitis serology was negative. PT is 20, INR 1.7, PT T 28.7, white count 9, hemoglobin 8.9, platelet count 133,000. This hospitalization, Dr. Leal and Dr. Austin have seen the patient. [facility]. PAST MEDICAL HISTORY: Congestive heart failure, anasarca, end-stage renal disease, right pleural eff usion, normocytic anemia followed by Dr. Dawkins, history of coronary disease, COPD, diabetes mellitu s type 2, dyslipidemia, GERD, hypertension, hypothyroidism, chronic thrombocytopenia. PAST SURGICAL HISTORY: Coronary artery bypass grafting, finger amputation, wrist surgery, Watchman p rocedure. ALLERGIES: ATORVASTATIN, SIMVASTATIN, CODEINE, FUROSEMIDE. MEDICATIONS: Tramadol, spironolactone, rosuvastatin, omeprazole, nitroglycerin, multivitamins, Zarox olyn, levothyroxine, Imdur, Novolin insulin sliding scale 70/30, colchicine as needed, Calcitriol petros ly, Bumex, budesonide, Tessalon, aspirin, vitamin, Brovana, allopurinol, albuterol nebs. PHYSICAL EXAMINATION: GENERAL: The patient appears ill. He is cachectic appearing. VITAL SIGNS: Height 5 feet 10 inches, weighs 212 pounds. BMI 30. CARDIAC: Irregularly irregular, controlled rate. LUNGS: Clear. ABDOMEN: Distended. Positive fluid wave. Umbilical hernia present. EXTREMITIES: Dark skin, bruising, midline left upper arm IV. ASSESSMENT AND PLAN: 1. End-stage renal disease. I have been asked by Dr. Leal to place a cuffed tunnel dialysis catheter . We will plan that today. We will also place a central line in order to remove the left upper arm midline IV. The patient's overall prognosis is poor and they like to hold off more permanent access until later. 2. Other medical problems as noted above.
--- NOTE | 2017-09-19 15:04 | PDOC.CTH ---
Cardiology Progress Note - Subjective He is not diuresing well. Kidney function worsening. - Objective Vital Signs Temp Pulse Pulse Resp BP BP Pulse Ox 09/19/17 11:33 96.1 F L 87 20 100/64 92 L 09/19/17 10:37 69 100/64 09/19/17 09:04 93 L 09/19/17 09:02 98 16 09/19/17 08:00 98.3 F 98 16 93 L 09/19/17 07:57 96.3 F L 99 20 101/60 94 L 09/19/17 04:00 97.3 F L 94 20 103/67 93 L Pulse Ox 09/19/17 11:33 09/19/17 10:37 93 L 09/19/17 09:04 09/19/17 09:02 09/19/17 08:00 09/19/17 07:57 09/19/17 04:00 Admit Weight 202 lb 6.4 oz Weight 212 lb 11.2 oz 09/18/17 09/19/17 09/20/17 06:59 06:59 06:59 Intake Total 560 1300.4 Output Total 250 100 Balance 310 1200.4 - Physical Examination General/Neuro: NAD Neck: no JVD present Lungs: other: (resp mildly labored.) Heart: RRR Abdomen: other: (distended.) Extremities: + edema B (2+) - Telemetry Telemetry Rhythm: Afib HR 80's. - Labs Result Diagrams: 09/19/17 04:56 09/19/17 04:56 Troponin/CKMB CK-MB (CK-2) 4.8 ng/mL (0-6.6) 09/16/17 04:12 Troponin I 0.369 ng/mL (< 0.028) H* 09/16/17 07:21 - Assessment/Plan 1. Chronic afib, rate controlled. 2. Liver cirrhosis. 3. Large right pleural effusion 4. Right lower extremity cellulitis. 5. Acute on chronic renal insufficiency 6. CKD stage 5 PLAN: - Will stop amiodarone today. Afib rate controlled now on home meds. - HD catheter to be placed today to start HD.
--- NOTE | 2017-09-19 15:34 | PRG ---
DATE OF SERVICE: 09/19/2017 SERVICE: Pulmonary Medicine. INTERVAL HISTORY: The patient is doing adequate from a respiratory standpoint. Sats are 92%. Work of breathing is slightly worse. That being said, he is breathing okay. He got poor sleep last night . He denies any cough or sputum production. Otherwise, there has been no interval change to his con dition. He has decided to move forward with dialysis which I think is a reasonable choice. PHYSICAL EXAMINATION: VITAL SIGNS: Afebrile, pulse 87, blood pressure 100/64, respirations 20, saturation 92% on 3 liters nasal cannula. GENERAL: Patient is awake, alert, no apparent distress. LUNGS: Decent air entry. There is decreased air entry on the right base. Crackles are present. No prolonged expiratory phase or wheezing. HEART: Normal rate, regular. ABDOMEN: Distended with ascites. Tender to palpation today, but no rebound. No guarding is present . Bowel sounds are present. MUSCULOSKELETAL: No cyanosis or clubbing. No pitting in the bilateral lower extremities. NEUROLOGIC: Grossly nonfocal. He does demonstrate minimal asterixis. LABORATORY DATA: WBC 9.8, hemoglobin 8.9 and stable. Platelets 133,000. INR 1.7. Creatinine 8.53 and trending upward. Chloride 96, bicarbonate 18, and anion gap 25. Basic metabolic profile is othe rwise unremarkable. Body fluid cultures negative to date. Blood cultures negative x2. ASSESSMENT: 1. Acute hypoxic respiratory failure. 2. Hepatic hydrothorax, status post thoracentesis x1, demonstrating clear transudate. 3. Acute kidney injury on chronic kidney disease IV, progressing. 4. Anasarca secondary to chronic kidney disease. 5. Cirrhosis. 6. Atrial fibrillation with rapid ventricular response. 7. Acute on chronic diastolic heart failure secondary to volume overload. PLAN: The patient will remain in the IMCU until we have better control of his volume status. He aiyana l recollect this fluid and will likely require repeat thoracentesis in 24-48 hours if we can control his volume. Pulmonary or Critical Care will continue to follow in this location.
--- NOTE | 2017-09-19 19:40 | RAD ---
PORTABLE AP CHEST X-RAY 09/19/17 HISTORY: Central line placement. COMPARISON: 11/16/14. FINDINGS: There has been interval placement of a left subclavian central venous catheter with the tip overlying the expected location of the proximal SVC. No pneumothorax is visualized. Small right pleural effusi on and atelectasis is present. There does appear to be mild decrease in right pleural effusion. Ther e is also a tiny left pleural effusion with bibasilar atelectasis. Postsurgical change related to CAB G are noted. Cardiac silhouette is mildly enlarged. Multiple fractured sternal wires are again presen t. No other interval change. IMPRESSION: 1. Interval placement of a left subclavian central venous catheter without evidence of a pneumot horax. 2. Small to moderate sized right and small left pleural effusions with associated passive atelec tasis. POS: [facility]
--- NOTE | 2017-09-19 21:06 | ULT ---
VEIN MAPPING OF UPPER EXTREMITIES FOR DIALYSIS ACCESS: 09/19/17 HISTORY: End-stage renal disease. FINDINGS: There is flow demonstrated within the bilateral internal jugular and subclavian veins with normal lum en compressibility involving each axillary vein. RIGHT UPPER EXTREMITY BRACHIAL ARTERY: 2.9 mm RADIAL ARTERY: 2 mm ULNAR ARTERY: 1.7 mm CEPHALIC VEIN Upper Arm: 1.7 mm Mid Arm: 1.2 mm Distal Arm: 1.4 mm Antecubital Fossa: 1.1 mm Proximal Forearm: 0.8 mm Mid Forearm: 1.1 mm Distal Forearm: 1.2 mm BASILIC VEIN Upper Arm: 4.3 mm Mid Arm: 2.9 mm Distal Arm: 3.2 mm Antecubital Fossa: 2.2 mm Proximal Forearm: 1.1 mm Mid Forearm: 0.5 mm Distal Forearm: 0.9 mm LEFT UPPER EXTREMITY BRACHIAL ARTERY: 4.3 mm RADIAL ARTERY: 1.7 mm ULNAR ARTERY: 1.8 mm CEPHALIC VEIN Upper Arm: 2.2 mm Mid Arm: 2.6 mm Distal Arm: 2.3 mm Antecubital Fossa: 2.4 mm Proximal Forearm: 3.7 mm Mid Forearm: 3.7 mm Distal Forearm: 2.8 mm BASILIC VEIN Upper Arm: 3.3 mm Mid Arm: 3.3 mm Distal Arm: 5.8 mm Antecubital Fossa: 2.5 mm Proximal Forearm: 4.2 mm Mid Forearm: 2.3 mm Distal Forearm: 0.8 mm IMPRESSION: Diameters of the cephalic and basilic veins are as described above. POS: [facility]
--- NOTE | 2017-09-19 21:51 | OP ---
DATE OF PROCEDURE: 09/19/2017. PREOPERATIVE DIAGNOSES: End-stage renal disease, ascites, previous CAT scan suggesting cirrhosis wit h serology negative for hepatitis, diastolic congestive heart failure and coronary artery disease. POSTOPERATIVE DIAGNOSES: End-stage renal disease, ascites, previous CAT scan suggesting cirrhosis wi th serology negative for hepatitis, diastolic congestive heart failure and coronary artery disease wi th occluded bilateral internal jugular veins by ultrasound. PROCEDURES: Placement of left subclavian vein central line. Ultrasound used noting occluded interna l jugular veins, placement of right femoral vein cuffed tunnel hemodialysis catheter. SURGEON: Dr. Vipul Jim ANESTHESIA: General. Local 0.25% Marcaine with epinephrine, 30 mL, mixed with 2% Xylocaine, 10 mL PROCEDURE IN DETAIL: The patient was taken to the operating room where in the supine position, neck and chest were prepared with ChloraPrep, draped in routine fashion. Local anesthetic infiltrated abo ut the operative sites. Ultrasound evaluation revealed both internal jugular veins were occluded. A ccess attempt was not made. The left subclavian vein triple lumen catheter was placed cannulating th e subclavian vein infraclavicular approach left, inserting the J-wire, removing the trocar catheter. Seldinger technique used to place the triple lumen catheter, removing the J-wire, securing the yury ter with sutures of 3-0 silk. Biopatch sterile dressing applied. Each port aspirated blood and flus hed with saline solution and then heparinized saline solution. The patient tolerated the procedure w ell. Drapes were removed right groin, thigh, lower abdomen. Left groin, thigh, and lower abdomen prepared with ChloraPrep, draped in routine fashion. Local anesthetic infiltrated about the operative site. Trocar catheter cannulated the right femoral vein. J-wire threaded. Trocar catheter removed. Skin incised and enlarged sharply. Stab incision made at the planned exit site mid slightly lateral righ t thigh and using the tunneling device, the femoral vein length hemodialysis catheter tunneled betwee n the two incisions, placing the fabric cuff beneath the skin exit site and catheter secured with 2 s utures of 3-0 nylon and a sterile dressing applied along with Biopatch. Smaller and medium sized dil ators placed over the J-wire and removed. Dilator and pull-away sheath placed over the J-wire in the femoral vein, and dilator and J-wire removed. Catheter placed with pull-away sheath. Pull-away she ath removed. Fluoroscopically, catheter noted to be in good position and subcutaneous tissues approx imated with 3-0 Monocryl, skin with subdermal 4-0 Monocryl, and DermaGlue applied. Each port aspirat ed blood and flushed with saline solution and heparinized saline solution 1000 units heparin per mL i ndicated volume of the port.
[2017-09-20 04:56] LABS: #Lymphocytes 0.5 thou/uL (1.20-3.40); #Monocytes 0.5 thou/uL (0.11-0.59); #Neutrophils 6.9 thou/uL (1.40-6.50); %Eosinophils 0.2 % (0.0-10.0); %Lymphocytes 6.1 % (21.0-51.0); %Monocytes 6.7 % (0.0-10.0); Hemoglobin 8.5 g/dL (14.0-18.0); Mean Corpuscular HGB CONC 30.7 g/dL (32.0-36.0); Mean Corpuscular Hemoglobin 31.1 pg (27.0-31.0); Mean Platelet Volume 9.4 fL (7.4-10.4); Platelet Count 123 thou/uL (130-400); Red Blood Cell (RBC) Count 2.74 mill/uL (4.70-6.10)
[2017-09-20 05:15] LABS: Anion Gap 24 mmol/L (10-20); BUN (Urea Nitrogen) 124 mg/dL (8.4-25.7); Calc. Creatinine Clearance 9 mL/min (70-130); Calcium 8.7 mg/dL (7.8-10.44); Carbon Dioxide 19 mmol/L (23-31); Chloride 96 mmol/L (98-107); Estimated GFR-MDRD 6; Glucose 108 mg/dL (83-110); Potassium 5.4 mmol/L (3.5-5.1); Sodium 134 mmol/L (136-145)
[2017-09-20] MEDS: Levothyroxine Sodium 50 MCG TAB PO SCH (05:41)
[2017-09-20 09:44] LABS: Hep B Core Total Ab Non-Reactive (NonReactive); Hep B Core Total Index 0.07 S/CO (0-0.79)
[2017-09-20 09:45] LABS: Hep C IgG Ab Non-Reactive (NonReactive); Hep C Index 0.08 S/CO (0-0.79)
[2017-09-20 10:12] LABS: Hep B Surf AB Reactive (NonReactive)
[2017-09-20 10:13] LABS: HBSAB Concentration 12.01 mIU/mL
[2017-09-20] MEDS: cefTRIAXone\\ROCEPHIN 1 GM, Syringe 0.4 ML in Sterile Water 9.6 ML SLOW IVP SCH (11:20)
[2017-09-20] MEDS: Allopurinol 100 MG TAB PO SCH (11:21)
[2017-09-20] MEDS: Ascorbic Acid 500 mg Chewable Tablet PO SCH (11:21)
[2017-09-20] MEDS: Calcitriol 0.25 MCG CAP PO SCH (11:21)
[2017-09-20] MEDS: Multivit, Therapeutic 1 TAB PO SCH ×2 (11:21→21:07)
[2017-09-20] MEDS: Famotidine 20 MG TAB PO SCH (11:21)
[2017-09-20] MEDS: Ondansetron ODT 4 MG TAB PO PRN (11:35)
[2017-09-20] MEDS: Ondansetron HCl/PF 4 MG/2 ML Vial IVP PRN ×2 (11:38→21:43)
--- NOTE | 2017-09-20 11:58 | PRG ---
DATE OF SERVICE: 09/20/2017 SERVICE: Renal Medicine. SUBJECTIVE: Mr. Ny is a 77-year-old white male who was admitted for shortness of breath. He was noted to have CHF. Due to the worsening pulmonary edema and worsening renal dysfunction, patimarie shaffer was initiated on hemodialysis. He underwent today 1-hour hemodialysis treatment. We were able to remove 1 liter off the patient. He relatively tolerated the said procedure. The patient is still sh ort of breath. OBJECTIVE: VITAL SIGNS: Blood pressure is ranging from 86/48 to 97/45, heart rate 84, respiratory rate 18, temp erature 96, pulse ox 97%. GENERAL: Noted to be awake, lethargic, supine, on BiPAP. SKIN: Adequate turgor. HEENT: He has slightly pale conjunctivae, anicteric sclerae. NECK: No neck mass, no carotid bruits, no JVD. CHEST: No deformities. LUNGS: Decreased breath sounds. HEART: Normal sinus rhythm. No murmur, no gallops, no rubs. ABDOMEN: Globular, soft, nontender. EXTREMITIES: Positive for edema. MEDICATIONS: Of 09/20/2017 was reviewed. LABORATORY DATA: Of 09/20/2017 showed the following: White count 8, hemoglobin 8.5. Sodium 134, po tassium 5.4, chloride 96, carbon dioxide 19, BUN 124, creatinine 8.9, glucose 108, calcium 8.7. Ammo myesha level is 147. ASSESSMENT AND PLAN: 1. Acute kidney injury/chronic renal failure, hemodialysis initiated due to the worsening renal dysf unction. He tolerated the treatment today. We are able to remove 1 liter with no dramatic change in the blood pressure. My plan is again to reschedule him for hemodialysis in a.m. I have planned to do a 2-hour hemodialysis and again we will max out fluid removal as tolerated. 2. Anemia. We will initiate Epogen with this patient at 7500 units subcutaneously every week. 3. Shortness of breath - multifactorial - congestive heart failure/chronic obstructive pulmonary dis ease. Supportive care. Currently on BiPAP. Overall, prognosis remains guarded with this patient.
[2017-09-20] MEDS: Arformoterol 15 MCG/2 ML NEB NEB SCH ×2 (11:59→20:15)
[2017-09-20] MEDS: Budesonide 0.25 MG/2 ML NEB NEB SCH ×2 (12:03→20:17)
--- NOTE | 2017-09-20 18:50 | PRG ---
DATE OF SERVICE: 09/20/2017 SERVICE: Pulmonary Medicine. INTERVAL HISTORY: The patient is doing fine from a cardiovascular and respiratory standpoint. He de nies any current fevers, chills, nausea or vomiting. He feels like it is easier to get his breath. He remains extraordinarily weak. He has been sitting on the side of bed 3 times daily. PHYSICAL EXAMINATION: VITAL SIGNS: Afebrile, pulse 93, blood pressure 81/51, respirations 20, saturation 100% on 3 liters nasal cannula. GENERAL: The patient is awake, alert, in no apparent distress. LUNGS: Excellent air entry. There are dependent crackles present. Improved air entry. HEART: Normal rate, regular. ABDOMEN: Soft, nontender, nondistended, bowel sounds positive. MUSCULOSKELETAL: No cyanosis or clubbing. No pitting in the bilateral lower extremities. NEUROLOGIC: Grossly nonfocal. LABORATORY DATA: WBC 8.0, hemoglobin 8.5, platelets 123,000. INR 1.7. Creatinine 8.9 and roughly s table. BUN 124 down from 172. Potassium 5.4. Basic metabolic profile is otherwise stable/unremarka ble. His ammonia level was 147. Blood cultures x2, body fluid culture, and acid fast bacilli are al l unremarkable. IMAGING: Chest x-ray demonstrates left subclavian central venous catheter without evidence of pneumo thorax. Small to moderate sized right and small left pleural effusions associated with little atelec tasis. ASSESSMENT: 1. Acute hypoxic respiratory failure. 2. Hepatic hydrothorax, status post thoracentesis x1, demonstrating clear transudate. 3. Acute kidney injury, on chronic kidney disease IV, progressing. 4. Anasarca. 5. Cirrhosis. 6. Metabolic encephalopathy, improving. 7. Atrial fibrillation with rapid ventricular response. 8. Acute on chronic diastolic heart failure secondary to volume overload. PLAN: The patient is doing really well with dialysis. He tolerated his first session today and we w ere successfully getting over a liter and a half off. This was actually pulled over a period of one hour which is quite impressive. He will remain in the [facility] for an additional 24-48 hours until he de monstrates improving strength and less encephalopathy. It is clearing very nicely and he is much mor e attentive today. I will continue to follow while he remains in this location.
[2017-09-21] MEDS: Levothyroxine Sodium 50 MCG TAB PO SCH (06:08)
[2017-09-21] MEDS: Budesonide 0.25 MG/2 ML NEB NEB SCH ×2 (07:08→18:33)
[2017-09-21] MEDS: Arformoterol 15 MCG/2 ML NEB NEB SCH ×2 (07:09→18:32)
--- NOTE | 2017-09-21 08:48 | PDOC.PN ---
- Subjective Encounter Start Date: 09/21/17 Encounter Start Time: 08:47 Subjective: Seen and examined -condition same - Objective Resuscitation Status: Resuscitation Status DNI:No Intubation Vital Signs & Weight: Vital Signs (12 hours) Temp Pulse Resp BP BP Pulse Ox 09/21/17 07:52 97.0 F L 108 H 22 H 92/41 L 92 L 09/21/17 07:09 96 20 09/21/17 07:08 96 20 09/21/17 04:07 91 19 98 09/21/17 04:00 96.4 F L 96 18 92/58 L 98 09/21/17 03:17 97 09/21/17 00:30 83 20 90/56 L 100 Weight Admit Weight 202 lb 6.4 oz Weight 212 lb 6.4 oz I&O: 09/20/17 09/21/17 09/22/17 06:59 06:59 06:59 Intake Total 300 160 Balance 300 160 Result Diagrams: 09/20/17 04:25 09/20/17 04:25 Additional Labs: Accuchecks 09/21/17 09/20/17 09/20/17 06:21 21:37 16:29 POC Glucose 121 H 89 196 H 09/20/17 10:44 POC Glucose 104 Phys Exam - Physical Examination Constitutional: NAD HEENT: PERRLA, moist MMs, sclera anicteric, TM's clear, oral pharynx no lesions Neck: no nodes, no JVD, supple, full ROM Respiratory: no wheezing, no rales, no rhonchi, clear to auscultation bilateral Cardiovascular: RRR, no significant murmur distended Musculoskeletal: edema present Dx/Plan (1) Acute worsening of stage 4 chronic kidney disease Code(s): N28.9 - DISORDER OF KIDNEY AND URETER, UNSPECIFIED; N18.4 - CHRONIC KIDNEY DISEASE, STAGE 4 (SEVERE) Status: Acute Comment: Creatinine not improving with albumin and minimal UOP today, will need dialysis vs. hospice, family discussing (2) CHF (congestive heart failure) Code(s): I50.9 - HEART FAILURE, UNSPECIFIED Status: Acute Qualifiers: Congestive heart failure type: systolic Congestive heart failure chronicity : acute on chronic Qualified Code(s): I50.23 - Acute on chronic systolic ( congestive) heart failure (3) Anasarca Code(s): R60.1 - GENERALIZED EDEMA Status: Chronic (4) Anemia, normocytic normochromic Code(s): D64.9 - ANEMIA, UNSPECIFIED Status: Chronic Comment: anemia of chronic renal failure (5) Ascites Code(s): R18.8 - OTHER ASCITES Status: Chronic Qualifiers: Ascites type: other type Qualified Code(s): R18.8 - Other ascites Comment: cardiac cirrhosis (6) CAD (coronary artery disease) Code(s): I25.10 - ATHSCL HEART DISEASE OF [place] CORONARY ARTERY W/O ANG PCTRS Status: Chronic (7) Cirrhosis, cardiac Code(s): K76.1 - CHRONIC PASSIVE CONGESTION OF LIVER Status: Chronic (8) Diabetes type 2, controlled Code(s): E11.9 - TYPE 2 DIABETES MELLITUS WITHOUT COMPLICATIONS Status: Chronic Qualifiers: Diabetes mellitus complication status: with kidney complications Diabetes mellitus complication detail: with chronic kidney disease Diabetes mellitus technician terminal and repeater insulin use: without technician terminal and repeater use Chronic kidney disease stage: stage 4 (severe) Qualified Code(s): E11.22 - Type 2 diabetes mellitus with diabetic chronic kidney disease; N18.4 - Chronic kidney disease, stage 4 (severe ); N18.4 - Chronic kidney disease, stage 4 (severe); N18.4 - Chronic kidney disease, stage 4 (severe); N18.4 - Chronic kidney disease, stage 4 (severe) (9) Dyslipidemia Code(s): E78.5 - HYPERLIPIDEMIA, UNSPECIFIED Status: Chronic - Plan plan discussed w/ family, PT/OT, oncology social worker, respiratory therapy Hemodialysis per Renal -: Prognosis ==poor * .
[2017-09-21] MEDS ORDERED: READ PPD TEST SITE PO SCH (09:00)
[2017-09-21] MEDS: Allopurinol 100 MG TAB PO SCH (10:11)
[2017-09-21] MEDS: Calcitriol 0.25 MCG CAP PO SCH (10:11)
[2017-09-21] MEDS: Famotidine 20 MG TAB PO SCH (10:11)
[2017-09-21] MEDS: Ascorbic Acid 500 mg Chewable Tablet PO SCH (10:12)
[2017-09-21] MEDS: Multivit, Therapeutic 1 TAB PO SCH ×2 (10:12→22:32)
[2017-09-21] MEDS ORDERED: Heparin 1,000 UNITS/ML VIAL ONE (11:11)
[2017-09-21] MEDS: cefTRIAXone\\ROCEPHIN 1 GM, Syringe 0.4 ML in Sterile Water 9.6 ML SLOW IVP SCH (11:50)
--- NOTE | 2017-09-21 11:57 | PRG ---
DATE OF SERVICE: 09/21/2017 SERVICE: Renal Medicine. SUBJECTIVE: Mr. Ny is a 77-year-old white male who was seen by the Renal Service for his wor sening renal dysfunction. He was also admitted for CHF. He underwent dialysis yesterday. Fluid rem oval was said to have been tolerated. However, later that day, blood pressure went down to 81/51. C urrently, this morning, he denies any worsening shortness of breath. He feels tired. OBJECTIVE: VITAL SIGNS: Blood pressure is 92/41, heart rate 108, respiratory rate 22, temperature 97 and pulse ox 92%. GENERAL: Awake, supine, comfortable and lethargic, not in overt distress. SKIN: Adequate turgor. HEENT: Has pinkish conjunctivae, anicteric sclerae. NECK: No neck mass, no carotid bruits, no JVD. CHEST: No deformities. LUNGS: Decreased breath sounds. HEART: Normal sinus rhythm. No murmur, no gallops, no rubs. ABDOMEN: Globular, soft and nontender. No masses. EXTREMITIES: No edema or deformities. MEDICATIONS: Medications of 09/21/2016 was reviewed. LABORATORY DATA: Laboratories of 09/20/2017; white count 8 and hemoglobin 8.5. Sodium was 134, pota ssium 5.4, chloride 96, carbon dioxide 19, BUN 124 and creatinine 8.9. On 09/21/2017, glucose 121. ASSESSMENT AND PLAN: 1. Acute kidney injury/chronic renal failure, hemodialysis has been initiated due to the worsening r enal dysfunction as well as for volume overload. My plan is to do another dialytic intervention at [facility] 2 hours today with fluid removal only as tolerated. The patient will be receiving daily dialysi s. 2. Shortness of breath, multifactorial etiology - congestive heart failure/chronic obstructive pulmo nary disease. Overall, prognosis remains poor with this patient. He remains cachectic looking. A t rial of dialysis is being done. We will discuss issues again with the family. This patient most lik cathleen will need palliative/hospice care.
--- NOTE | 2017-09-21 16:54 | PRG ---
DATE OF SERVICE: 09/21/2017 SERVICE: Pulmonary Medicine. INTERVAL HISTORY: The patient is doing fine from a respiratory standpoint. Mentation foster, he is so mnolent and a little bit confused all day. He was little hypoxemic this morning and had a little cya nosis despite the fact is that looked okay. He was put on noninvasive ventilation. He perked up a l ittle bit. He was also placed on dialysis. With dialysis, he has perked up quite a bit. He is much more awake and alert. He denies any current abdominal discomfort, fevers, chills or overnight event s. He still looks extraordinarily weak. PHYSICAL EXAMINATION: VITAL SIGNS: Afebrile, pulse 97, blood pressure 98/52, respirations 21, saturation 100% on 3 liters nasal cannula currently, HEART: Normal rate, regular. ABDOMEN: Soft. Distended. Bowel sounds are present. No rebound or guarding, nontender to palpatio n. MUSCULOSKELETAL: No cyanosis or clubbing. There is 1-2+ pitting throughout. GENITOURINARY: Ineto catheter in place. NEUROLOGIC: Grossly nonfocal. LABORATORY DATA: WBC 8.0, hemoglobin 8.5, platelets 123,000. INR 1.7. PH 7.36 on pleural broth. T here is a clear transudate growing out of the fluid that was submitted. That being sent, Microbiolog y is suggesting gram positive cocci. This almost certainly represents a contaminant. Blood cultures x2 are negative. The AFB culture and smear are unremarkable. ASSESSMENT: 1. Acute hypoxic respiratory failure, improving. 2. Hepatic hydrothorax. Status post thoracentesis x1, demonstrating clear transudate. 3. Acute kidney injury on chronic kidney disease IV, progressing to end-stage renal disease. 4. Anasarca, improving slowly. 5. Cirrhosis. 6. Metabolic encephalopathy, resolving. 7. Atrial fibrillation with rapid ventricular response. 8. Acute on chronic diastolic heart failure secondary to volume overload. PLAN: We will continue to dialyze the patient, pull off as much fluid as possible. His mentation se ems to be clearing a little bit. Hopefully, his strength will start to improve and will be able to g et him out of bed into a chair a couple of times daily. He will need to remain in this location for the time being.
[2017-09-22] MEDS: Levothyroxine Sodium 50 MCG TAB PO SCH (04:19)
[2017-09-22 05:28] LABS: Anion Gap 28 mmol/L (10-20); BUN (Urea Nitrogen) 124 mg/dL (8.4-25.7); Calc. Creatinine Clearance 11 mL/min (70-130); Carbon Dioxide 19 mmol/L (23-31); Chloride 96 mmol/L (98-107); Estimated GFR-MDRD 7; Potassium 4.9 mmol/L (3.5-5.1); Sodium 138 mmol/L (136-145)
[2017-09-22 05:36] LABS: Glucose 59 mg/dL (83-110)
[2017-09-22 05:40] LABS: #Lymphocytes 0.4 thou/uL (1.20-3.40); #Monocytes 0.7 thou/uL (0.11-0.59); #Neutrophils 7.9 thou/uL (1.40-6.50); %Basophils 0.2 % (0.0-1.0); %Eosinophils 0.2 % (0.0-10.0); %Lymphocytes 4.7 % (21.0-51.0); %Neutrophils 86.9 % (42.0-75.0); Hemoglobin 8.1 g/dL (14.0-18.0); Hypochromia SLIGHT = 6-15 cells (100X) (0-5/hpf); MDiff Complete? YES; Mean Corpuscular HGB CONC 30.4 g/dL (32.0-36.0); Mean Corpuscular Hemoglobin 30.8 pg (27.0-31.0); Mean Platelet Volume 9.7 fL (7.4-10.4); PLT Morphology Comment Appears Decreased; Platelet Count 92 thou/uL (130-400); Polychromasia SLIGHT = 2-3 cells (100X) (0-2/hpf); RBC Distribution Width 17.1 % (11.5-14.5); Red Blood Cell (RBC) Count 2.62 mill/uL (4.70-6.10); White Blood Cell (WBC) Count 9.1 thou/uL (4.8-10.8)
[2017-09-22 07:51] VITALS: BP 91/55
[2017-09-22 08:38] VITALS: BMI 29.2
[2017-09-22] MEDS: Budesonide 0.25 MG/2 ML NEB NEB SCH (08:39)
[2017-09-22] MEDS: Arformoterol 15 MCG/2 ML NEB NEB SCH (08:39)
[2017-09-22] MEDS: cefTRIAXone\\ROCEPHIN 1 GM, Syringe 0.4 ML in Sterile Water 9.6 ML SLOW IVP SCH (09:20)
[2017-09-22] MEDS: Famotidine 20 MG TAB PO SCH ×2 (09:21→11:04)
[2017-09-22] MEDS: Calcitriol 0.25 MCG CAP PO SCH (09:21)
[2017-09-22] MEDS: Allopurinol 100 MG TAB PO SCH ×2 (09:21→11:02)
[2017-09-22] MEDS: Ascorbic Acid 500 mg Chewable Tablet PO SCH ×2 (09:21→11:03)
[2017-09-22] MEDS: Multivit, Therapeutic 1 TAB PO SCH ×2 (09:22→10:47)
--- NOTE | 2017-09-22 09:51 | PRG ---
DATE OF SERVICE: 09/22/2017. SUBJECTIVE: Mr. Ny is a 77-year-old white male who was seen by the Renal Service for his wor sening acute kidney injury on top of his chronic renal failure. He was also in volume overload. We have initiated dialysis. I am currently at the bedside supervising his dialysis. My plan is to atte mpt to remove 2 liters of fluid only as tolerated by the patient. He looks cachectic and remains uni mproved over the last several days. PHYSICAL EXAMINATION: VITAL SIGNS: Blood pressure is noted at 81/58 and ranging to as high as 100/54, heart rate is 142, r espiratory rate 18, temperature 96.8. GENERAL: Awake, cachectic looking, in mild respiratory distress. SKIN: Decreased turgor. HEENT: Slightly pale conjunctivae, anicteric sclerae. NECK: No neck mass, no carotid bruits, no JVD. CHEST: No deformities. LUNGS: Decreased breath sounds. HEART: Tachycardic. Grade 2/6 systolic murmur, no gallops, no rubs. ABDOMEN: Globular, soft, nontender, no masses. EXTREMITIES: Positive for edema. MEDICATIONS: 09/22/2017 - Reviewed. LABORATORY: 09/22/2017 - White count 9.1, hemoglobin 8.1. Sodium 138, potassium 4.9, chloride 96, c arbon dioxide 19, BUN 124, creatinine 7.1. ASSESSMENT AND PLAN: 1. Tachycardia - this could be related to his underlying heart failure. We may need to consult Card iology for further management. 2. Acute kidney injury/chronic renal failure, undergoing dialysis. I am at the bedside supervising his dialysis. I decreased fluid removal from a goal of 3 to a most recent goal of 2 liters. We will remove fluid only as tolerated by the patient. 3. Congestive heart failure, slightly decreased cardiac output - supportive care. The patient's prognosis remains poor. Continue supportive care.
[2017-09-22] MEDS ORDERED: Sodium Bicarb 50 MEQ/50 ML Abboject 8.4% SYRINGE ONE ×2 (10:52→10:56)
[2017-09-22 11:49] VITALS: TEMP 97
[2017-09-22] MEDS ORDERED: Morphine 2 MG/ML SYRINGE SLOW IVP PRN (13:41)
[2017-09-22] MEDS ORDERED: Lorazepam 2 MG/ML VIAL SLOW IVP PRN (13:42)
--- NOTE | 2017-09-23 18:06 | PRG ---
DATE OF SERVICE: 09/23/2017 SUBJECTIVE: Mr. Ny's status has markedly diminished. He is unresponsive. He had a signific ant tachycardia followed by bradycardia. He was admitted for renal failure and is not undergoing pily lysis. PHYSICAL EXAMINATION: VITAL SIGNS: Blood pressure 80/50, pulse 50, respirations 36. GENERAL: The patient does not respond to voice. He appears unresponsive. LUNGS: Clear to auscultation. HEART: Bradycardic, irregularly irregular. ABDOMEN: Distended. EXTREMITIES: No edema. IMPRESSION: 1. Atrial fibrillation. 2. Bradycardia. 3. Tachycardia. 4. Renal failure. RECOMMENDATIONS: Family has decided to proceed with hospice care. I certainly have been taking care Mr. Ny for the last 10 years. At this point, I have given my condolences to the family. Adrien zabala questions were answered.
--- NOTE | 2017-09-23 21:30 | PRG ---
DATE OF SERVICE: 09/22/2017 SERVICE: Pulmonary Medicine. INTERVAL HISTORY: This morning, apparently before dialysis, the patient was awake and conversive. He actually looked a little bit better. His strength was improving. Dialysis was initiated and he became little bit more obtunded. They only pulled off 700 mL of water. After this, he became a little bit more agitated with elevated blood pressures. He then develop some hypotension and became confused and obtunded. This happened in a fairly short period of time. He was agitated and complaining of difficulty with breathing. We attempted to put him back on the BiPAP. He was clawing at this device, trying to pull it off. Because his blood pressures had dropped, we gave him a bolus of fluid. His blood pressures were extraordinarily low. He never quite lost a pulse, but we could not get blood pressures peripherally. I called the family and confirm that he was in fact a DNI. They are okay with brief episode of resuscitation if it meant that he could get back to how he was. Both the patient's son and the patient's daughter arrived as quickly as they could get here. When they saw their father is struggling on BiPAP, and being poorly responsive, they suggested that he had been suffering for the past 2 days and ultimately they felt the dialysis was not as effective as they hoped it would be. As such, they made the difficult decision to abide by their father's wishes and transition him over to comfort care only. Shortly after comfort transition to comfort care only was made and the patient was removed from BiPAP, he . Critical care time: 45 minutes. MAVERICK
--- NOTE | 2017-10-14 10:03 | DS ---
SUMMARY: In summary, this was a 77-year-old gentleman who presented to the hospital with leg pain, diagnosed with cellulitis as well as palpitations. The patient had multiple comorbidities including [id number] kidney disease to the point of being dependent on hemodialysis, ascites in the dayne xt of liver failure, type 2 diabetes, dyslipidemia, chronic obstructive pulmonary disease, chronic th rombocytopenia, atrial fibrillation with rapid ventricular response, systolic congestive heart failur e. The patient was seen and followed actively during this hospitalization by various consultants inc yolanda Tan, the patient's [employer] financial[employer] consultant, Dr. De La Paz with Pulmonary Critical Care, Dr. Brigitte Leal with Nephrology Service. The patient's clinical condition continued to deteriorate despite v arious medical interventions. At one point the patient was then initiated on hemodialysis and had th is for a couple of days, the clinical condition of this patient deteriorated. The patient became valery y agitated, hypotensive while on dialysis, IV removal, he had about 700 mL of fluid. The patient was subsequently resuscitated with fluid, but continued to deteriorate. At this juncture, decision was taken by the family according to the wish of this patient to transition over to comfort care. On tra nsition over to comfort care the patient immediately . The clinical condition management during this hospitalization and also the cause of included: 1. Acute on chronic kidney disease to the point of end-stage renal disease. 2. Cardiopulmonary failure in the context of systolic congestive heart failure and atrial fibrillati on with rapid ventricular response. 3. Cellulitis. 4. End-stage liver disease with ascites. 5. Type 2 diabetes mellitus. 6. The end-stage liver disease is more or less cardiac cirrhosis. The patient and no request for autopsy was done and the body was released to the family. Total time spent including the [id number] encounter was 31 minutes.
--- NOTE | 2017-10-25 16:01 | EKG ---
Test Reason : Blood Pressure : / mmHG Vent. Rate : 137 BPM Atrial Rate : 113 BPM P-R Int : 000 ms QRS Dur : 078 ms QT Int : 296 ms P-R-T Axes : 000 142 163 degrees QTc Int : 446 ms Atrial fibrillation with rapid ventricular response Right axis deviation Possible Right ventricular hypertrophy Biphasic T wave in lateral leads Abnormal ECG Confirmed by FREYA THURMAN ([id number]), visual effects editor TOBY POPE ([id number]) on 10/25/2017 4:01:20 PM Referred By: Confirmed By:FREYA THURMAN
== END 2017-09-22 18:15 | disposition expired | DRG 871 ==
LOC: ERS 03:51 → ERHOLD 05:50 → IMCU/EMU 17:55
PROVIDERS: ADMIT Internal Medicine Infectious Disease; ATTEND Internal Medicine Infectious Disease
PROC: 0W993ZZ Drainage of Right Pleural Cavity, Percutaneous Approach (ICD-10-PCS; principal; 2017-09-18)
PROC: 0JHL3XZ Insertion of Tunneled Vascular Access Device into Right Upper Leg Subcutaneous Tissue and Fascia, Percutaneous Approach (ICD-10-PCS; 2017-09-19)
PROC: 06HM33Z Insertion of Infusion Device into Right Femoral Vein, Percutaneous Approach (ICD-10-PCS; 2017-09-19)
PROC: 02HV33Z Insertion of Infusion Device into Superior Vena Cava, Percutaneous Approach (ICD-10-PCS; 2017-09-19)
PROC: B548ZZA Ultrasonography of Superior Vena Cava, Guidance (ICD-10-PCS; 2017-09-19)
PROC: 5A1D70Z Performance of Urinary Filtration, Intermittent, Less than 6 Hours Per Day (ICD-10-PCS; 2017-09-20)
PROC: 5A09357 Assistance with Respiratory Ventilation, Less than 24 Consecutive Hours, Continuous Positive Airway Pressure (ICD-10-PCS; 2017-09-20)
PROC: 5A09357 Assistance with Respiratory Ventilation, Less than 24 Consecutive Hours, Continuous Positive Airway Pressure (ICD-10-PCS; 2017-09-21)
PROC: 5A09357 Assistance with Respiratory Ventilation, Less than 24 Consecutive Hours, Continuous Positive Airway Pressure (ICD-10-PCS; 2017-09-22)
DX: A41.9 Sepsis, unspecified organism (principal); N18.6 End stage renal disease; J96.21 Acute and chronic respiratory failure with hypoxia; I13.2 Hypertensive heart and chronic kidney disease with heart failure and with stage 5 chronic kidney disease, or end stage renal disease; G93.41 Metabolic encephalopathy; J91.8 Pleural effusion in other conditions classified elsewhere; R64 Cachexia; J94.8 Other specified pleural conditions; I95.3 Hypotension of hemodialysis; I50.33 Acute on chronic diastolic (congestive) heart failure; N17.9 Acute kidney failure, unspecified; L03.115 Cellulitis of right lower limb; R18.8 Other ascites; L97.809 Non-pressure chronic ulcer of other part of unspecified lower leg with unspecified severity; Z51.5 Encounter for palliative care; E11.22 Type 2 diabetes mellitus with diabetic chronic kidney disease; D69.6 Thrombocytopenia, unspecified; I83.008 Varicose veins of unspecified lower extremity with ulcer other part of lower leg; I25.10 Atherosclerotic heart disease of native coronary artery without angina pectoris; J44.9 Chronic obstructive pulmonary disease, unspecified; E78.5 Hyperlipidemia, unspecified; K21.9 Gastro-esophageal reflux disease without esophagitis; E03.9 Hypothyroidism, unspecified; D64.9 Anemia, unspecified; Z95.1 Presence of aortocoronary bypass graft; Z68.30 Body mass index [BMI] 30.0-30.9, adult; K76.1 Chronic passive congestion of liver; I08.0 Rheumatic disorders of both mitral and aortic valves; S90.922A Unspecified superficial injury of left foot, initial encounter; S90.921A Unspecified superficial injury of right foot, initial encounter; S80.922A Unspecified superficial injury of left lower leg, initial encounter; S80.921A Unspecified superficial injury of right lower leg, initial encounter; Z66 Do not resuscitate; Z99.2 Dependence on renal dialysis; I48.2 Chronic atrial fibrillation; I25.5 Ischemic cardiomyopathy; M10.9 Gout, unspecified
CPT/HCPCS: 32555; 36415; 36416; 71045; 80048; 80053; 82140; 82550; 82553; 82805; 82945; 83615; 83880; 83986; 84157; 84484; 85025; 85060; 85610; 86580; 86704; 86706; 86803; 87040; 87070; 87116; 87205; 87206; 87340; 88112; 88305; 89051; 90935; 93005; 93970; 94640; 94660; 96365; 96366; 96368; 96375; 96376; A4216; C1752; C1769; G0257; G0365; G8978-GP-CN; G8979-GP-CL; G8987-GO-CL; G8988-GO-CJ; J0282; J0696; J1644; J2001; J7050; J7070; J7626; P9047